=== PATIENT | male | born 1965 | race Caucasian/White ===

== ENCOUNTER 2019-08-16 07:37 | Outpatient (CLI) | payer OTHER, SELFPAY ==
--- NOTE | ~2019-08-16 | CT_ITS ---
EXAMINATION: CT abdomen pelvis w con EXAM DATE: 08/16/2019 08:16 INDICATION: Prostate cancer follow-up. TECHNIQUE: Spiral CT of the abdomen and pelvis was performed following intravenous injection of 100 m L Omnipaque 350. Axial, coronal and sagittal images were reviewed. The dose-length product (DLP) fo r this examination was 446.64 mGy-cm. The exposure was tailored according to patient size (auto mA e xposure control), and iterative reconstruction (ASIR) was used as additional dose reduction technique . Comparison is made to prior examination from 09/01/2017. FINDINGS: Pancreatic calcifications, chronic pancreatitis. Previously seen pancreatic cystic region n o longer identified. Liver, spleen, adrenal glands are unremarkable. Gallbladder is unremarkable. N o biliary obstruction. Portal and splenic veins are patent. Kidneys enhance symmetrically. There i s no hydronephrosis. The prostate is unremarkable. Small bilateral inguinal fat-containing hernias. The bladder is unremarkable. There is no retroperitoneal or pelvic lymphadenopathy. There is mod erate scattered arteriosclerotic disease. The appendix is normal. The stomach and small bowel are unremarkable. There is moderate amount of c olonic low density stool. There is mild sigmoid colonic diverticulosis. There is no adjacent inflamm atory change to suggest diverticulitis. No free intraperitoneal gas. The heart is normal in size. There are no pericardial or pleural effusions. The lung bases are unremarkable. There are no osteo blastic or osteolytic lesions identified. IMPRESSION: 1. No evidence of metastatic disease. 2. Chronic pancreatitis. 3. Mild colonic diverticulosis. 4. Moderate colonic stool. Reviewed, dictated and finalized at location B. LATORY ATTORNEY
--- NOTE | ~2019-08-16 | NM_ITS ---
EXAMINATION: NM bone scan whole body DATE: 08/16/2019 12:36 INDICATION: Prostate cancer TECHNIQUE: 25.9 mCi Tc-99m HDP was administered intravenously. Delayed whole-body scintigrams were o btained. COMPARISON: CT abdomen and pelvis dated 08/16/2019 FINDINGS/IMPRESSION: Physiologic distribution of bone and soft tissue activity. No evident metastatic disease. Reviewed, dictated and finalized at location A. RUCTION ASSISTANT PRINCIPAL
[2019-08-16 08:10] LABS: Blood Urea Nitrogen 17 mg/dL (8-26); Estimated Glomerular Filt Rate > 60
== END 2019-08-16 07:38 | disposition home or self-care (01) ==
LOC: ANHIMG 07:38
PROVIDERS: Visit Provider Internal Medicine Hematology & Oncology
DX: C61 Malignant neoplasm of prostate (principal); K86.1 Other chronic pancreatitis; K57.30 Diverticulosis of large intestine without perforation or abscess without bleeding
CPT/HCPCS: 74177; 78306; A9561; Q9967

== ENCOUNTER 2020-08-11 10:31 | Outpatient (CLI) | payer MEDICARE, SELFPAY ==
--- NOTE | ~2020-08-11 | US_ITS ---
EXAMINATION: US right upper quadrant DATE: 08/11/2020 11:25 INDICATION: Abnormal liver function tests. TECHNIQUE: Multiple grayscale and Doppler ultrasound images of the abdomen were obtained. COMPARISON: CT abdomen and pelvis 08/16/2019 FINDINGS: The pancreas is obscured by bowel. There is diffuse hepatic steatosis. There is normal flow in main portal vein. The gallbladder is normal in size and contains sludge. No gallstones or gallbla dder wall thickening. There was no sonographic Simeon sign. The common duct is normal and measures 6 mm. IMPRESSION: 1. Diffuse hepatic steatosis. 2. Gallbladder sludge. No evidence of acute cholecystitis. Reviewed, dictated and finalized at location A. K SKETCH ARTIST
== END 2020-08-11 10:32 | disposition home or self-care (01) ==
PROVIDERS: PCP Emergency Medicine; Visit Provider Emergency Medicine
DX: R74.8 Abnormal levels of other serum enzymes (principal); K82.8 Other specified diseases of gallbladder; K76.0 Fatty (change of) liver, not elsewhere classified
CPT/HCPCS: 76705

== ENCOUNTER 2021-01-03 10:16 | Outpatient (CLI) | payer MEDICARE, SELFPAY ==
--- NOTE | ~2021-01-03 | XR_ITS ---
EXAMINATION: XR foot LT min 3V DATE: 01/03/2021 10:35 INDICATION: Left foot pain and stiffness TECHNIQUE: Dorsoplantar, lateral, and 2 oblique views of the left foot were obtained. COMPARISON: None. FINDINGS: There is no fracture, dislocation, or subluxation. There is moderate osteoarthritis of the first metatarsophalangeal joint and mild osteoarthritis of multiple interphalangeal joints. The soft tissues are unremarkable. Dorsal and plantar calcaneal enthesophytes are noted. IMPRESSION: 1. Osteoarthritis. Reviewed, dictated and finalized at location B. IMPRESSION: 1. Osteoarthritis.
--- NOTE | ~2021-01-03 | XR_ITS ---
EXAMINATION: XR foot RT min 3V DATE: 01/03/2021 10:35 INDICATION: Right foot pain TECHNIQUE: Dorsoplantar, lateral, and 2 oblique views of the right foot were obtained. COMPARISON: None. FINDINGS: Bone alignment is normal. There is no fracture. There is moderate osteoarthritis at the fir st metatarsophalangeal joint. Mild osteoarthritis is present at multiple additional interphalangeal j oints. There is a plantar calcaneal enthesophyte. Soft tissues are unremarkable. IMPRESSION: 1. Osteoarthritis Reviewed, dictated and finalized at location B. IMPRESSION: 1. Osteoarthritis
== END 2021-01-03 10:17 | disposition home or self-care (01) ==
LOC: ANHIMG 10:19
PROVIDERS: PCP Emergency Medicine; Visit Provider Emergency Medicine
DX: M19.071 Primary osteoarthritis, right ankle and foot (principal); M19.072 Primary osteoarthritis, left ankle and foot
CPT/HCPCS: 73630

== ENCOUNTER 2021-07-07 11:05 | Outpatient (CLI) | payer MEDICARE, SELFPAY ==
[2021-07-07 11:49] LABS: Basophils Absolute Auto 0.1 K/mm3 (0.0-0.1); Basophils Percent Auto 0.8 % (0.2-1.2); Eosinophils Absolute Auto 0.2 K/mm3 (0-0.3); Hematocrit 39.5 % (42.0-52.0); Hemoglobin 13.4 g/dL (14.0-18.0); Immature Granulocyte Absolute 0.02 K/mm3 (0.00-0.031); Immature Granulocyte Percent A 0.3 % (0-0.5); Lymphocytes Absolute Auto 1.62 K/mm3 (0.9-3.2); Mean Corpuscular HGB Conc 33.9 g/dl (32-36); Mean Corpuscular Hemoglobin 33.2 pg (26-34); Mean Corpuscular Volume 97.8 fl (80-100); Mean Platelet Volume 11.1 fl (7.4-10.4); Monocytes Absolute Auto 0.8 K/mm3 (0.1-0.6); Monocytes Percent Auto 10.2 % (2.6-8.5); Neutrophils Absolute Auto 4.7 K/mm3 (1.3-6.7); Neutrophils Percent Auto 63.7 % (45.5-73.1); Platelet Count Result 137 k/mm3 (150-375); Red Blood Count 4.04 M/mm3 (4.6-6.20); Red Cell Distribution Width 14.9 % (11.5-14.5); White Blood Count 7.4 K/mm3 (4.5-10.0)
[2021-07-07 15:11] LABS: Cholesterol 100 mg/dL (0-200); HDL Direct 30 mg/dL; Triglycerides 73 mg/dL (<150)
[2021-07-07 15:22] LABS: LDL Cholesterol Direct 54 mg/dL
[2021-07-07 16:20] LABS: Free T4 Free Thyroxine 1.87 ng/mL (0.78-2.19)
[2021-07-07 16:32] LABS: Prostate Specific Antigen 0.2 ng/mL (< OR = 4.0)
[2021-07-07 17:16] LABS: Alanine Aminotransferase 51 U/L (4-50); Albumin Level 3.7 g/dL (3.5-5.1); Alkaline Phosphatase 210 U/L (38-126); Anion Gap 10 mmol/L (8-16); Aspartate Amino Transferase 134 U/L (17-59); Bilirubin,Total 2.7 mg/dL (0.2-1.3); Blood Urea Nitrogen 7 mg/dL (9-20); Calcium 8.8 mg/dL (8.4-10.2); Carbon Dioxide 27 mmol/L (22-30); Chloride 98 mmol/L (98-107); Estimated Glomerular Filt Rate > 60; Glucose 130 mg/dL (65-110); Potassium 2.8 mmol/L (3.4-5.0); Sodium 135 mmol/L (137-145)
[2021-07-07 18:36] LABS: Hemoglobin A1C 5.4 % (<5.7)
[2021-07-07 21:32] LABS: Vitamin D 25 Hydroxy < 12.8 ng/mL
== END 2021-07-07 11:06 | disposition home or self-care (01) ==
PROVIDERS: PCP Emergency Medicine; Visit Provider Internal Medicine Hematology & Oncology
DX: I10 Essential (primary) hypertension (principal); Z12.5 Encounter for screening for malignant neoplasm of prostate; C61 Malignant neoplasm of prostate; E55.9 Vitamin D deficiency, unspecified; E11.9 Type 2 diabetes mellitus without complications
CPT/HCPCS: 36415; 80053; 80061; 82306; 83036; 84153; 84439; 84443; 85025; 85055

== ENCOUNTER 2021-07-10 11:34 | Outpatient (CLI) | payer MEDICARE, SELFPAY ==
[2021-07-10 14:04] LABS: Add Urine Microscopic? YES; Appearance Urine Clear (Clear); Bacteria Urine Trace /hpf; Bilirubin Urine Negative (Negative); Blood Urine Negative (Negative); Calcium Oxalate Crystals Urine Present /hpf; Color Urine Yellow (Yellow); Glucose Urine UA Negative (Negative); Ketones Urine Negative (Negative); Leukocyte Esterase Ur Negative LEU/UL (NEGATIVE); Mucus Urine Rare /lpf; Nitrate Urine Negative (Negative); Protein Urine Negative (Negative); RBC Urine 0-2 /hpf (0-2); Specific Grav Ur 1.012 (1.001-1.035); Squamous Epithelial Cell Urine Rare /hpf (Few); WBC Urine 0-3 /hpf (0-3)
[2021-07-10 15:04] LABS: Creatinine Urine 85.5 mg/dL
[2021-07-10 15:08] LABS: MALB Creatinine Ratio 13.9 mg/g (0-30); Microalbumin Urine Random 11.9 mg/L (0-16.7)
== END 2021-07-10 11:35 | disposition home or self-care (01) ==
LOC: ANHLAB 11:35
PROVIDERS: PCP Emergency Medicine; Visit Provider Internal Medicine Hematology & Oncology
DX: Z12.5 Encounter for screening for malignant neoplasm of prostate (principal); I10 Essential (primary) hypertension; E55.9 Vitamin D deficiency, unspecified; E11.9 Type 2 diabetes mellitus without complications
CPT/HCPCS: 81001; 82043

== ENCOUNTER 2021-07-31 07:28 | Outpatient (CLI) | payer MEDICARE, SELFPAY ==
--- NOTE | ~2021-07-31 | US_ITS ---
EXAMINATION: US abdomen complete EXAM DATE: 07/31/2021 09:00 INDICATION: Elevated liver enzymes, decreased urination. TECHNIQUE: Multiple grayscale and Doppler images of the complete abdomen were obtained (by a technolo gist who performed the scan) and subsequently reviewed. Comparison is made to prior examination from 08/11/2020. FINDINGS: The abdominal aorta is normal in caliber. Visualized portion IVC is patent. The pancreatic head a nd body are normal in appearance. The pancreatic tail is not visualized. There is echogenic liver parenchyma, hepatic steatosis. There are no focal liver lesions identified. There is no evidence of intrahepatic biliary duct dilation. Portal venous flow was seen in the he patopedal, normal direction and has normal Doppler waveform. Common bile duct measures 5 mm, which is normal. The gallbladder wall is normal in thickness, with ex pected amount of distention. No sonographic evidence of pericholecystic fluid. There is no cholelit hiases. Technologist performing exam reports patient did not demonstrate sonographic Simeon's sign. Please note that this sign is less reliable in patients who have received pain medication. Right kidney: There is normal contour and echogenicity. It measures 12.0 x 5.4 x 6.1 centimeters. There are no focal renal lesions identified. There is no hydronephrosis. Left kidney: There is normal contour and echogenicity. It measures 11.7 x 5.2 x 5.5 centimeters. T here are no focal renal lesions identified. There is no hydronephrosis. The spleen measures 10.1 x 4.2 centimeters and is morphologically normal. IMPRESSION: Hepatic steatosis. Reviewed, dictated and finalized at location A. TRICIAN FRONT IMPRESSION: Hepatic steatosis.
== END 2021-07-31 07:29 | disposition home or self-care (01) ==
PROVIDERS: PCP Emergency Medicine; Visit Provider Emergency Medicine
DX: R74.01 Elevation of levels of liver transaminase levels (principal); K76.0 Fatty (change of) liver, not elsewhere classified; R34 Anuria and oliguria; R39.198 Other difficulties with micturition
CPT/HCPCS: 76700

== ENCOUNTER 2021-08-20 09:11 | Outpatient (CLI) | payer MEDICARE, SELFPAY | END 2021-08-20 09:12 | disposition home or self-care (01) | PROVIDERS: PCP Emergency Medicine; Visit Provider Internal Medicine Hematology & Oncology | DX: C61 Malignant neoplasm of prostate (principal) | CPT/HCPCS: 36415; 84153 ==

== ENCOUNTER 2021-11-20 09:05 | Inpatient (IN) | payer MEDICARE, SELFPAY ==
[2021-11-20] VITALS (37 sets, daily range): BP systolic 82–109; BP diastolic 58–75; PULSE 61–94; RESP 14–24; TEMP 36.2–37; O2SAT 98–100; BMI 28.0
--- NOTE | ~2021-11-20 | US_ITS ---
EXAMINATION: US venous doppler [facility] DATE: 11/21/2021 15:06 INDICATION: Bilateral lower limb swelling TECHNIQUE: Coyle scale images without and with compression and Doppler images of the bilateral lower e xtremity veins were obtained. COMPARISON: 04/19/2019 FINDINGS: The right common femoral vein, profunda femoral vein, femoral vein, popliteal vein, peroneal trunk, p osterior tibial veins, and greater saphenous vein are patent. The left common femoral vein, profunda femoral vein, femoral vein, popliteal vein, peroneal trunk, po sterior tibial veins, and greater saphenous vein are patent. IMPRESSION: 1. Patent bilateral lower extremity veins. No evidence of deep venous thrombosis. Reviewed, dictated and finalized at location A. IMPRESSION: 1. Patent bilateral lower extremity veins. No evidence of deep venous thrombosi s.
--- NOTE | ~2021-11-20 | US_ITS ---
EXAMINATION: US paracentesis abd w/image DATE: 11/20/2021 17:34 INDICATION: Ascites. TECHNIQUE: The procedure and its risks, benefits, and alternatives were discussed with the patient. P otential risks discussed included bleeding and infection. The skin was prepped and draped in sterile fashion. 1% lidocaine was used for local anesthesia. Under ultrasound guidance, a 5 Fr catheter with trochar was advanced into the ascites in the left lower quadrant. Fluid was aspirated. The catheter w as removed, and a dressing was applied. There were no immediate complications. FINDINGS: Ultrasound images demonstrate ascites and the catheter within the fluid. IMPRESSION: 1. Successful ultrasound-guided paracentesis yielding 5000 mL of clear, yellow fluid. Reviewed, dictated and finalized at location A.
--- NOTE | ~2021-11-20 | XR_ITS ---
XR chest 1V portable 11/20/2021 09:30 Indication: Shortness of breath Procedure: AP portable chest Comparison: 10/26/2017 Findings: Heart size normal. Left basilar atelectasis/scarring. No focal pneumonia, edema, pleural ef fusion or pneumothorax. Impression: 1: Left basilar atelectasis/scarring. Reviewed, dictated and finalized at location B. Impression: 1: Left basilar atelectasis/scarring.
--- NOTE | 2021-11-20 09:09 | ECG_ITS ---
Measurements Intervals [place] Rate: 88 P: 38 CA: 164 QRS: 40 QRSD: 118 T: 30 QT: 428 QTc: 520 Interpretive Statements SINUS RHYTHM INTRAVENTRICULAR CONDUCTION DELAY EARLY PRECORDIAL R/S TRANSITION ST-T WAVE ABNORMALITY IN ANTEROLAT/INF LEADS- CONSIDER ISCHEMIA BASELINE WANDER- I, III, AVL, AVF ABNORMAL ECG Electronically Signed On 11-20-2021 9:27:03 CDT by Taz Santana D.O.
[2021-11-20 09:38] LABS: Basophils Percent Auto 0.6 % (0.2-1.2); Eosinophils Absolute Auto 0.1 K/mm3 (0-0.3); Eosinophils Percent Auto 1.3 % (0-4.4); Immature Granulocyte Absolute 0.01 K/mm3 (0.00-0.031); Immature Granulocyte Percent A 0.2 % (0-0.5); Lymphocytes Absolute Auto 1.49 K/mm3 (0.9-3.2); Lymphocytes Percent Auto 27.5 % (18.3-44.2); Mean Corpuscular HGB Conc 30.6 g/dl (32-36); Mean Corpuscular Hemoglobin 23.2 pg (26-34); Mean Corpuscular Volume 75.9 fl (80-100); Mean Platelet Volume 9.9 fl (7.4-10.4); Monocytes Absolute Auto 0.7 K/mm3 (0.1-0.6); Monocytes Percent Auto 12.8 % (2.6-8.5); Neutrophils Absolute Auto 3.1 K/mm3 (1.3-6.7); Neutrophils Percent Auto 57.6 % (45.5-73.1); Platelet Count Result 192 k/mm3 (150-375); Red Blood Count 2.28 M/mm3 (4.6-6.20); Red Cell Distribution Width 21.1 % (11.5-14.5); White Blood Count 5.4 K/mm3 (4.5-10.0)
[2021-11-20 09:44] LABS: Ammonia < 9 umol/L (9-30); Hematocrit 17.3 % (42.0-52.0); Hemoglobin 5.3 g/dL (14.0-18.0)
[2021-11-20 09:45] LABS: Alanine Aminotransferase 20 U/L (6-50); Albumin Level 2.1 g/dL (3.5-5.1); Alkaline Phosphatase 144 U/L (38-126); Anion Gap 8 mmol/L (8-16); Aspartate Amino Transferase 48 U/L (17-59); Bilirubin,Total 1.6 mg/dL (0.2-1.3); Blood Urea Nitrogen 10 mg/dL (9-20); Calcium 7.3 mg/dL (8.4-10.2); Carbon Dioxide 23 mmol/L (22-30); Chloride 103 mmol/L (98-107); Estimated CRCL calculation 110 ml/min; Estimated Glomerular Filt Rate > 60; Glucose 138 mg/dL (65-110); Potassium 2.9 mmol/L (3.4-5.0); Sodium 134 mmol/L (137-145)
[2021-11-20 09:46] LABS: Alanine Aminotransferase 20 U/L (6-50); Albumin Level 2.2 g/dL (3.5-5.1); Alkaline Phosphatase 142 U/L (38-126); Aspartate Amino Transferase 55 U/L (17-59); Bilirubin,Total 1.6 mg/dL (0.2-1.3); INR 1.9; Prothrombin Time 21.3 Seconds (11.1-14.7)
[2021-11-20 09:47] LABS: Partial Thromboplastin Time 38.4 SECONDS (22.3-36.8)
[2021-11-20 09:49] LABS: D Dimer 3.46 ug/mL (<0.48)
--- NOTE | 2021-11-20 09:59 | ED.SOB ---
HPI - SOB/Dyspnea General Chief Complaint: Shortness of Breath/Dyspnea Stated Complaint: SOB with Leg Swelling/ABD Swelling Time Seen by Provider: 11/20/21 09:52 Source: patient and RN notes reviewed Limitations: no limitations History of Present Illness HPI Narrative: Patient is 56 years old white male came to the ED by ambulance from home complaining of weakness, shortness of breath and large abdomen over the last 4 weeks. History of liver cirrhosis secondary to alcoholism, prostatic cancer status post radiation therapy, hypertension, diabetes and hyperlipidemia. He denies any fever, chills, nausea, vomiting, vomiting blood or passing blood per rectum or stool discoloration. Last bowel movement was last night without any abnormality. Patient is DNR. He denies smoking or drinking over the last 3 years. Related Data Home Medications Medication Instructions Recorded Confirmed aspirin [Aspir-81] 81 mg PO DAILY 08/08/19 07/28/21 ergocalciferol (vitamin D2) 1,250 mcg PO WEEKLY 08/08/19 07/28/21 [Drisdol] glipizide 10 mg PO DAILY 08/08/19 07/28/21 metformin 1,000 mg PO BID 08/08/19 07/28/21 simvastatin 20 mg PO DAILY 08/08/19 07/28/21 spironolactone 25 mg PO DAILY 08/08/19 07/28/21 [id number] [Anti-Gas] 600 unit PO DAILY 09/20/19 07/28/21 bicalutamide 50 mg PO DAILY 01/09/20 07/28/21 amlodipine 5 mg PO DAILY 03/06/20 07/28/21 fexofenadine [Kari] 180 mg PO DAILY 03/18/21 07/28/21 Allergies Allergy/AdvReac Type Severity Reaction Status Date / Time Penicillins Allergy Unknown Other Verified 07/28/21 08:17 Review of Systems Review of Systems: All systems reviewed & are unremarkable except as noted in HPI and below PMFSH Past Medical History Medical History Ascites B12 deficiency Diabetes mellitus DVT (deep venous thrombosis) Hiatal hernia HTN (hypertension) Liver cirrhosis Pulmonary embolism Surgical History Surgical History H/O prostate biopsy Family History Family History Father Stomach cancer Mother Heart disease Hypertension Social History Social History Smoking packs per day: 1 Smoking cigarettes per day: 20.0 Years smoked: 10 Smoking pack-years: 10.00 Smoking status: Former smoker Tobacco type: cigarettes Alcohol intake: former Alcohol use details: quit in 2017 Gender identity (if verbalized by the patient): Male Spiritual care concerns: No Exam Narrative: General appearance: Well-developed, well-nourished Skin: Pale, 4+ edema lower extremity bilaterally Head: Normocephalic, nontraumatic Eyes: Clear conjunctiva ENT: Oropharynx normal, ears normal, nose normal Neck: Supple, nontender Chest and respiratory: Airway patent, no respiratory distress, no accessory muscle use Heart: Regular rate/rhythm Abdomen: Soft, large abdomen, ascites, rectal exam showed empty rectal pouch, guaiac negative Vascular: Normal peripheral pulses, normal capillary refill. Musculoskeletal: Normal range of motion, nontender back Neurologic: Alert and oriented ?3, TILE EDGER is normal as tested, no gross motor deficit Course Course Emergency Course: Esophageal varices is a possibility. Patient was started on Protonix and octreotide. GI consulted. Admit to hospitalist. Consultations Consultation #1: Dr. Washington Date: 11/20/21 Time: 10:35 Consultation #2: Jo/Dr. Hernandez Date: 11/20/21 Time: 10:35 Vital Signs Vital signs: Vital Signs Temperature 36.8 C 11/20/21 09:12 Pulse Rate 86 11/20/21 09:1
[2021-11-20 10:02] LABS: NT Pro B Type Natriuretic Pept 1060 pg/mL (5-100); Troponin I 0.043 ng/mL (0.000-0.034)
[2021-11-20] MEDS: LIDOCAINE HCL 2% GEL UROJET 10 ML PKG (10:04)
[2021-11-20 10:14] LABS: Appearance Urine Slightly Cloudy (Clear); Bilirubin Urine 1+ (Negative); Blood Urine 3+ (Negative); Glucose Urine UA Negative (Negative); Ketones Urine Negative (Negative); Leukocyte Esterase Ur Negative LEU/UL (Negative); Nitrate Urine Negative (Negative); Protein Urine Trace mg/dL (Negative); pH Urine 6.5 (5.0-9.0)
[2021-11-20 10:23] LABS: Add Urine Microscopic? YES; Color Urine Dark Yellow (Yellow)
[2021-11-20 10:29] LABS: Mucus Urine Few /lpf; RBC Urine >75 /hpf (0-2); Squamous Epithelial Cell Urine Rare /hpf (Few); WBC Urine 0-3 /hpf
[2021-11-20 11:00] LABS: SARS-CoV-2 RNA PCR Negative
[2021-11-20] MEDS: OCTREOTIDE ACETATE 50 MCG/ML VIAL IV PUSH (11:01)
[2021-11-20] MEDS: POTASSIUM CHLORIDE INJ 40 MEQ in SODIUM CHLORIDE 0.9% IV 500 ML 130 MEQ IVPB (11:02)
[2021-11-20 11:06] LABS: Hypochromasia 2+ (NORMAL); Lymphocytes Absolute Manual 0.97 K/mm3 (1.1-4.5); Monocytes Absolute Manual 0.27 K/mm3 (0.1-0.90); Monocytes Percent Manual 5 % (3-9); Neutrophils Percent Manual 77 % (46-73); Platelet Estimate Adequate (Adequate); Rouleaux 1+ (NORMAL); Total Cells Counted 100
[2021-11-20 11:07] LABS: Anisocytosis 1+ (NORMAL); Poikilocytosis 1+ (NORMAL); Schistocytes 1+ (NORMAL)
[2021-11-20] MEDS: PANTOPRAZOLE SODIUM IV 40 MG VIAL IV PUSH (11:07)
--- NOTE | 2021-11-20 12:49 | ADMGEN ---
This patient, Elie Chow, was admitted to IMU Room 211-01 at 1248. Patient/family oriented to hospital policies and general routines including ID bracelet, bed and alarms, visiting hours, pain management, procedures, bathroom and other care routines, personal items, smoking policy, room service/diet, and visiting hours. Information on how to activate the Rapid Response Team has been discussed. Patient/Family are encouraged to report perceived risks to care and to ask questions if they do not understand what they are told or what they should do.
[2021-11-20 13:13] LABS: Glucose Point of Care 130 mg/dl (65-105)
--- NOTE | 2021-11-20 14:46 | WPDGICN ---
Assessment and Plan Assessment and plan (1) Anemia: Qualifiers: Anemia type: unspecified type Qualified Code(s): D64.9 - Anemia, unspecified Code(s): D64.9 - Anemia, unspecified Status: Acute Assessment and Plan: given the fact that he had a normal hematocrits in July, I suspect that he has lost blood since then. He has not seen blood in his stools. He is at risk for esophageal varices given his Diagnosis of cirrhosis. I will schedule him for EGD to be done tomorrow. I explained him that he may have esophageal varices requiring banding. I discussed the procedure in possible risks such as bleeding or perforation, or pain if we need to band varices (2) History of cirrhosis of liver: Code(s): Z87.19 - Personal history of other diseases of the digestive system Status: Acute Assessment and Plan: he states that he was told that his cirrhosis is due to heavy alcohol use and he did quit drinking altogether a couple of years ago. He has had paracentesis once but states that he had not needed since then until he began having distension and edema in the legs a few weeks ago. (3) History of deep vein thrombosis: Code(s): Z86.718 - Personal history of other venous thrombosis and embolism Status: Acute Assessment and Plan: He took an oral anticoagulant for several months but now takes only a baby aspirin each day. (4) Coagulopathy: Code(s): D68.9 - Coagulation defect, unspecified Status: Acute Assessment and Plan: INR is 1.9, likely due to his chronic liver disease. Because there is no active bleeding, I do not think that we need to give him plasma and vitamin K is not likely to be effective (5) Prostate CA: Code(s): C61 - Malignant neoplasm of prostate Status: Acute Assessment and Plan: he sees Dr. Henderson regarding his prostate cancer. He states that he did have a scan of some sort and was told that there is no cancer in his bones. He has never been treated by him or any other floral clerk for anemia (6) Ascites: Code(s): R18.8 - Other ascites Status: Acute Assessment and Plan: I will schedule him for ultrasound-guided paracentesis. He states that the distention is the primary reason he came to the emergency room, And he is fairly uncomfortable with that. GI Consult Note Consult date/time: 11/20/21 14:46 HPI: Elie Chow is a 56 year old male The presented to the emergency room today because of shortness of breath and abdominal distension. He states that he has been told a few years ago that he had cirrhosis. He in fact quit drinking when he was given that diagnosis and that was almost 3 years ago. He states that he did have a paracentesis done a few years ago but has not had 1 since. He has gradually had increasing distention of his abdomen and edema in his legs. He was found to be markedly anemic in the emergency room. He denies seen blood in his stools, having black or tarry stools or having hematemesis. He denies dysphagia. He states that he has a fairly good appetite; he is not sure about his weight but suspects he is gaining weight due to the fluid retention. He had a colonoscopy and an EGD done less than 2 years ago in [place]. He does not take any blood thinner other than aspirin 81 mg per day. A couple of years ago when he had blood clots in his legs and lungs he was on a blood thinner for about 6 months. His INR is elevated at 1.9. He has never had hepatitis. He has not had follow-up of his liver disease with ultrasounds. Review of Systems Review of Systems: All systems reviewed & are unremarkable except as noted in HPI and below PMFSH Past Medical History Medical History Ascites B12 deficiency Diabetes mellitus DVT (deep venous thrombosis) Hiatal hernia HTN (hypertension) Liver cirrhosis Pulmonary embolism
[2021-11-20] MEDS: SODIUM CHLORIDE 0.9% IV 250 ML 30 ML IV CONT (16:05)
[2021-11-20] MEDS: TUBING, BLOOD PLUM PUMP TUBING 1 EACH XX ×3 (16:05→20:56)
[2021-11-20 17:00] LABS: Glucose Point of Care 230 mg/dl (65-105)
--- NOTE | 2021-11-20 17:19 | PM.IMHP ---
H&P: HPI History of Present Illness Date/Time: Patient requires inpatient monitoring with expected length of stay to exceed 2 midnights for management of care. 11/20/21 17:19 Chief Complaint: Shortness of breath Narrative: Mr. Chow is a 56-year-old gentleman who presented emergency room via ambulance with complaints of increasing shortness of breath, lower extremity edema, abdominal distension, and weakness for the last 4 weeks. Patient denies calling his primary care provider or his cryptologist for any of his complaints. Patient has a known history of liver cirrhosis secondary to alcoholism, and he states he quit drinking in 2018. Patient states he has had to have paracentesis in the past secondary to his abdominal distension. Patient states he also has a history of prostate cancer for which he is in remission at this time and did receive radiation and chemotherapy. Patient denies any abdominal pain but states that he does feel very bloated. Patient denies any chest discomfort, lightheadedness, dizziness, syncopal, or near syncopal episodes. Patient denies any hematemesis. Patient denies any hematochezia or melena. Patient's states that he has not noted any blood loss at any point. Upon evaluation emergency room patient was noted to be severely anemic with a hemoglobin of 5.0 and hematocrit of 17. Patient was then placed on an octreotide drip and is to receive Protonix pushes daily. Patient was also ordered to have 3 units of packed red blood cells and Gastroenterology was consulted. Patient adamantly denies any nausea vomiting. Patient was noted to have potassium of 2.9 and potassium supplementation via IV was started. As already stated patient has a known history of cirrhosis of the liver secondary to alcohol abuse. Patient states he quit drinking in 2018. Patient states he does have a history of prostate cancer and underwent radiation and chemotherapy and is in remission at this time. Patient states he does have a history of diabetes mellitus and he has been taking all of his medication at home. Patient also has a known history of hypertension and dyslipidemia. Review of Systems Review of Systems: A 12 point review of systems was completed patient all pertinent positive and negative per HPI the remainder are unremarkable. [facility] Past Medical History Medical History Ascites B12 deficiency Diabetes mellitus DVT (deep venous thrombosis) Hiatal hernia HTN (hypertension) Liver cirrhosis Pulmonary embolism Surgical History Surgical History H/O prostate biopsy Family History Family History Father Stomach cancer Mother Heart disease Hypertension Social History Social History Smoking packs per day: 0.5 Smoking cigarettes per day: 10.0 Years smoked: 12 Smoking pack-years: 6.00 Smoking status: Former smoker Tobacco type: cigarettes Alcohol intake: former Alcohol use details: quit in 2017 Gender identity (if verbalized by the patient): Male Spiritual care concerns: No Meds Home Medications and Allergies Home Medications Medication Instructions Recorded Confirmed Type aspirin [Aspir-81] 81 mg PO DAILY 08/08/19 11/20/21 History ergocalciferol (vitamin D2) 1,250 mcg PO WEEKLY 08/08/19 11/20/21 History [Drisdol] glipizide 10 mg PO DAILY 08/08/19 11/20/21 History metformin 1,000 mg PO BID 08/08/19 11/20/21 History simvastatin 20 mg PO DAILY 08/08/19 11/20/21 History spironolactone 25 mg PO DAILY 08/08/19 11/20/21 History bicalutamide 50 mg PO DAILY 01/09/20 11/20/21 History amlodipine 5 mg PO DAILY 03/06/20 11/20/21 History fexofenadine [Kari] 180 mg PO DAILY 03/18/21 11/20/21 History potassium chloride 20 meq PO DAILY 11/20/21 11/20/21 History Allergies Zain
[2021-11-20 18:59] LABS: Hematocrit 23.7 % (42.0-52.0); Hemoglobin 7.2 g/dL (14.0-18.0); Immature Reticulocyte Fraction 37.5 % (3.0-15.9); Reticulocyte Hemoglobin Conten 23.3 pg (28.2-35.7); Reticulocyte Percent 2.08 % (0.7-4.3); Reticulocytes Absolute 0.06 B/L (32.2-175.7)
[2021-11-20 19:06] LABS: Potassium 3.2 mmol/L (3.4-5.0)
[2021-11-20 19:26] LABS: Troponin I 0.035 ng/mL (0.000-0.034)
[2021-11-20 19:39] LABS: Lactate Dehydrogenase 468 U/L (313-618)
[2021-11-20 20:00] LABS: Iron 64 ug/dL (49-181)
[2021-11-20 20:10] LABS: Percent Iron Saturation 21 % (20-50)
[2021-11-20 20:46] LABS: Glucose Point of Care 231 mg/dl (65-105)
[2021-11-20] MEDS: KCL 20 MEQ/SW 100 ML 100 ML 50 MEQ IVPB (22:06)
[2021-11-20 22:45] LABS: Troponin I 0.035 ng/mL (0.000-0.034)
[2021-11-21] VITALS (23 sets, daily range): BP systolic 86–166; BP diastolic 57–71; PULSE 59–116; RESP 16–24; TEMP 36.1–36.6; O2SAT 96–100
--- NOTE | 2021-11-21 | ECHO_ITS ---
Patient Info Name: Elie Chow Age: 56 years : 1965 Gender: Male Ht: 72 in Wt: 206 lbs BSA: 2.20 m2 HR: 69 bpm BP: 86 / 62 mmHg Technical Quality: Fair Exam Date: 11/21/2021 8:26 AM Exam Location[facility] Patient Status: Inpatient Admit Date: 11/20/2021 Staff Ordering Physician: Fatemeh Zamudio APRN Lump Maker: Clint Simeon RDCS, RT Attending Provider: Jeet Meadows MD Referring Physician: Lizz MORALES; Exam Type: CA echo doppler color flow Study Info Indications R01.1 - Cardiac murmur, unspecified Complete two-dimensional, color flow and Doppler transthoracic echocardiogram is performed. Strain analysis performed. Summary 1. Complete two-dimensional, color flow and Doppler transthoracic echocardiogram is performed. 2. Left ventricular chamber dimension is normal. 3. Left ventricular systolic function is normal, estimated at 60-65%. 4. There is mildly increased left ventricular wall thickness. 5. The left ventricular diastolic function is grade III diastolic dysfunction. 6. E/e' is minimally elevated. 7. Global longitudinal strain is normal at -19.4%. 8. Left atrial chamber dimension is moderately enlarged. 9. Right atrial chamber dimension is mildly enlarged. 10. There is moderate aortic valve sclerosis. 11. There is moderate aortic valve stenosis with a peak velocity of 267 cm/s, mean gradient of 18 mmHg, and aortic valve area of 1.3 cm2. 12. The mitral valve has mildly calcified annulus. 13. There is mild mitral valve regurgitation. 14. There is trace tricuspid valve regurgitation. 15. Dilated inferior vena cava with >50% collapse upon inspiration consistent with elevated right atrial pressure, 10 mmHg. Left Ventricle E/e' is minimally elevated. Global longitudinal strain is normal at -19.4%. Left ventricular chamber dimension is normal. Left ventricular systolic function is normal, estimated at 60-65%. There is mildly increased left ventricular wall thickness. The left ventricular diastolic function is grade III diastolic dysfunction. Right Ventricle Right ventricular systolic function is normal and with normal TAPSE 2.5 cm. Right ventricular chamber dimension is normal. Left Atria Left atrial chamber dimension is moderately enlarged. Right Atria Right atrial chamber dimension is mildly enlarged. Aortic Valve The aortic valve is trileaflet. There is moderate aortic valve sclerosis. There is moderate aortic valve stenosis with a peak velocity of 267 cm/s, mean gradient of 18 mmHg, and aortic valve area of 1.3 cm2. There is no aortic valve regurgitation. Pulmonic Valve There is no pulmonic regurgitation. Mitral Valve The mitral valve has mildly calcified annulus. There is no mitral valve stenosis. There is mild mitral valve regurgitation. Tricuspid Valve There is trace tricuspid valve regurgitation. RVSP is not calculated due to an inadequate TR jet. Pericardium/Pleural There is no pericardial effusion. Inferior Vena Cava Dilated inferior vena cava with >50% collapse upon inspiration consistent with elevated right atrial pressure, 10 mmHg. Aorta The aortic root size at the sinus of Valsalva is normal. Left Ventricular Outflow Tract Name Value Normal LVOT 2D
[2021-11-21] MEDS: SODIUM CHLORIDE 0.9% IV 250 ML 30 ML (01:49)
[2021-11-21 02:02] LABS: Hematocrit 23.2 % (42.0-52.0); Hemoglobin 7.1 g/dL (14.0-18.0)
[2021-11-21 02:25] LABS: Troponin I 0.033 ng/mL (0.000-0.034)
[2021-11-21 07:10] LABS: Hematocrit 24.2 % (42.0-52.0); Hemoglobin 7.7 g/dL (14.0-18.0)
[2021-11-21 07:20] LABS: Alanine Aminotransferase 16 U/L (6-50); Albumin Level 1.9 g/dL (3.5-5.1); Alkaline Phosphatase 114 U/L (38-126); Anion Gap 3 mmol/L (8-16); Aspartate Amino Transferase 32 U/L (17-59); Bilirubin,Total 2.9 mg/dL (0.2-1.3); Blood Urea Nitrogen 8 mg/dL (9-20); Calcium 6.7 mg/dL (8.4-10.2); Carbon Dioxide 25 mmol/L (22-30); Chloride 104 mmol/L (98-107); Estimated CRCL calculation 127 ml/min; Estimated Glomerular Filt Rate > 60; Glucose 172 mg/dL (65-110); Potassium 3.3 mmol/L (3.4-5.0); Sodium 132 mmol/L (137-145)
[2021-11-21 07:55] LABS: Glucose Point of Care 174 mg/dl (65-105)
[2021-11-21] MEDS: PANTOPRAZOLE SODIUM IV 40 MG VIAL IV PUSH ×2 (09:13→20:34)
[2021-11-21 12:07] LABS: Glucose Point of Care 151 mg/dl (65-105)
[2021-11-21] MEDS: LACTATED RINGERS 1,000 ML 150 ML IV CONT (12:13)
--- NOTE | 2021-11-21 13:12 | WPDANESEPPF ---
Anes - Initial Pre Proc Eval Procedure: Operation Date: 11/21/21 13:00 Proposed Procedures p Esophagogastroduodenoscopy - Jeff Washington MD Date/Time: 11/21/21 13:12 Surgeon: Jeet Meadows MD Pre Op Diagnosis: Anemia, Liver Cirrhosis w/ascites, Hypokalemia Patient Data Age: 56 Gender: M Height: 1.83 m Weight: 94.1 kg Last Vital Signs Temp 98 F 11/21/21 12:11 Pulse 67 11/21/21 12:11 Resp 17 11/21/21 12:11 BP 93/57 L 11/21/21 12:11 Pulse Ox 100 11/21/21 12:11 Allergies Allergy/AdvReac Type Severity Reaction Status Date / Time Penicillins Allergy Unknown Other Verified 11/21/21 12:07 Home Medications Medication Instructions Recorded Confirmed Type aspirin [Aspir-81] 81 mg PO DAILY 08/08/19 11/20/21 History ergocalciferol (vitamin D2) 1,250 mcg PO WEEKLY 08/08/19 11/20/21 History [Drisdol] glipizide 10 mg PO DAILY 08/08/19 11/20/21 History metformin 1,000 mg PO BID 08/08/19 11/20/21 History simvastatin 20 mg PO DAILY 08/08/19 11/20/21 History spironolactone 25 mg PO DAILY 08/08/19 11/20/21 History bicalutamide 50 mg PO DAILY 01/09/20 11/20/21 History amlodipine 5 mg PO DAILY 03/06/20 11/20/21 History fexofenadine [Kari] 180 mg PO DAILY 03/18/21 11/20/21 History potassium chloride 20 meq PO DAILY 11/20/21 11/20/21 History Laboratory Tests 11/20/21 11/20/21 11/20/21 10:16 12:57 16:19 Hgb Hct Absolute Retic Percent Retic Immature Retic Fraction Retic Hgb Content Haptoglobin Sodium Potassium Chloride Carbon Dioxide Anion Gap BUN Creatinine Estim Creat Clear Calc Estimated GFR Glucose POC Capillary Glucose 130 mg/dl H mg/dl 230 mg/dl H mg/dl (65-105) (65-105) Calcium Magnesium Iron TIBC % Saturation Total Bilirubin Direct Bilirubin AST ALT Alkaline Phosphatase Lactate Dehydrogenase Troponin I Total Protein Albumin Blood Type O Positive Antibody Screen Negative Crossmatch See Detail 11/20/21 11/20/21 11/20/21 18:47 18:47 18:47 Hgb 7.2 g/dL L g/dL (14.0-18.0) Hct 23.7 % L % (42.0-52.0) Absolute Retic 0.06 B/L L B/L (32.2-175.7) Percent Retic 2.08 % % (0.7-4.3) Immature Retic Fraction 37.5 % H % (3.0-15.9) Retic Hgb Content 23.3 pg L pg (28.2-35.7) Haptoglobin Sodium Potassium Chloride Carbon Dioxide Anion Gap BUN Creatinine Estim Creat Clear Calc Estimated GFR Glucose POC Capillary Glucose Calcium Magnesium Iron 64 ug/dL ug/dL (49-181) TIBC 299 ug/dL ug/dL (265-497) % Saturation 21 % % (20-50) Total Bilirubin Direct Bilirubin AST ALT Alkaline Phosphatase Lactate Dehydrogenase Troponin I Total Protein Albumin Blood Type Antibody Screen Crossmatch 11/20/21 11/20/21 11/20/21 18:47 18:47 18:47 Hgb Hct Absolute Retic Percent Retic Immature Retic Fraction Retic Hgb Content Haptoglobin Pending Sodium Potassium 3.2 mmol/L L mmol/L (3.4-5.0) Chloride Carbon Dioxide Anion Gap BUN Creatinine Estim Creat Clear Calc Estimated GFR
[2021-11-21] MEDS: BENZOCAINE (*SP) 60 ML SPRAY CAN (HURRICAINE) 1 SPRAY MUCOUS MEM (13:19)
--- NOTE | 2021-11-21 14:11 | PM.IMPN ---
Progress Note: A&P Assessment and Plan (1) Anemia: Qualifiers: Anemia type: unspecified type Qualified Code(s): D64.9 - Anemia, unspecified Code(s): D64.9 - Anemia, unspecified Status: Acute Assessment and Plan: Hemoglobin 5.3 on admission. Most likely the etiology of his weakness. His symptoms may also be related to high output heart failure from the anemia which could explain the elevated BNP. He was transfused 3 units of packed blood cells. Hemoglobin has climbed the 7 range in his remains stable. No evidence of acute blood loss prior to admission per patient. Upper GI does show esophageal ulcers without bleeding and duodenitis which may be contributing to his blood loss. Continue to monitor H&H. Transfuse as necessary. (2) Elevated troponin: Code(s): R77.8 - Other specified abnormalities of plasma proteins Status: Acute Assessment and Plan: Troponin elevated to 0.043 on admission but has trend to normal. EKG showing anterolateral and inferior ST T wave changes. Echo showing EF of 60-65%, grade 3 diastolic dysfunction, and moderate aortic stenosis (DANIEL 1.3). Probably related to the severe anemia causing cardiac strain. Continue to monitor on telemetry. (3) Esophagitis, reflux: Code(s): K21.00 - Gastro-esophageal reflux disease with esophagitis, without bleeding Status: Acute Assessment and Plan: EGD was completed earlier today showing reflux esophagitis with esophageal ulcers, hiatal hernia and duodenitis. Some of these findings may have contributed to his anemia. No varices noted. Octreotide stopped. He did have a lipoma that was biopsied. Continue PPI. (4) Acute hypokalemia: Code(s): E87.6 - Hypokalemia Status: Acute Assessment and Plan: Potassium was 2.9 on admission. This has been replaced. He does take potassium supplements and spironolactone at home. Continue to follow and replace. Check cortisol and TSH. (5) Liver cirrhosis: Code(s): K74.60 - Unspecified cirrhosis of liver Status: Acute Assessment and Plan: Patient has ascites present admission with removal of 5 L. he tolerated this well. He is on spironolactone but not Lasix. He may not be on Lasix due to chronic hypokalemia and/or hypotension. Will continue spironolactone for now. Blood pressure more stable as afternoon. Continue to follow closely. Place parameters on the spironolactone. Add Vic mychal. (6) Ascites: Code(s): R18.8 - Other ascites Status: Acute Assessment and Plan: Patient has decompensated cirrhosis with ascites. As above. Appreciate GI input (7) Coagulopathy: Code(s): D68.9 - Coagulation defect, unspecified Status: Acute Assessment and Plan: INR 1.9. D-dimer elevated 3.5. Most likely related to the liver cirrhosis. Will check lower extremity venous Dopplers. (8) Hematuria: Code(s): R31.9 - Hematuria, unspecified Status: Acute Assessment and Plan: UA showing 3+ blood and greater than 75 red cells. Prior related to the Ajcinto catheter placement. He is an ex-smoker. UA will need to be repeated to ensure that this clears. (9) Diabetes mellitus: Code(s): E11.9 - Type 2 diabetes mellitus without complications Status: Acute Assessment and Plan: The patient's blood glucose was reviewed on 11/21 Glucose remains reasonably well controlled. Start AccuCheks covering with sliding scale. Hypoglycemia protocol will be available as needed. Continue to monitor (10) History of deep vein thrombosis: Code(s): Z86.718 - Personal history of other venous thrombosis and embolism Status: Acute Assessment and Plan: SCDs. Subjective Date/time seen: 11/21/21 14:11 Interval history: 56yo male with alcoholic cirrhosis, DM and HTN here for SOB, LE edema, abdominal distention and weakness and found to have profound
[2021-11-21] MEDS: POTASSIUM CHLORIDE 20 MEQ TABLET.ER PO (14:31)
[2021-11-21] MEDS: LORATADINE 10 MG TABLET PO (14:31)
[2021-11-21] MEDS: SIMVASTATIN 20 MG TABLET PO (14:31)
[2021-11-21] MEDS: BICALUTAMIDE (*CHEMO) 50 MG TABLET PO (14:31)
[2021-11-21] MEDS: ERGOCALCIFEROL 50,000 UNIT CAPSULE 50000 UNITS PO (14:32)
[2021-11-21 16:13] LABS: Glucose Point of Care 155 mg/dl (65-105)
[2021-11-21] MEDS: POTASSIUM CHLORIDE 20 MEQ TABLET PO (18:28)
[2021-11-21 20:10] LABS: Glucose Point of Care 228 mg/dl (65-105)
[2021-11-22] VITALS (9 sets, daily range): BP systolic 88–164; BP diastolic 49–69; PULSE 64–79; RESP 18–20; TEMP 36.4–37; O2SAT 95–98
[2021-11-22 05:03] LABS: Hemoglobin A1C 5.5 % (<5.7)
[2021-11-22 05:12] LABS: Alanine Aminotransferase 14 U/L (6-50); Albumin Level 1.8 g/dL (3.5-5.1); Alkaline Phosphatase 102 U/L (38-126); Anion Gap 0 mmol/L (8-16); Aspartate Amino Transferase 34 U/L (17-59); Bilirubin,Total 2.2 mg/dL (0.2-1.3); Blood Urea Nitrogen 6 mg/dL (9-20); Calcium 6.8 mg/dL (8.4-10.2); Carbon Dioxide 28 mmol/L (22-30); Chloride 103 mmol/L (98-107); Estimated CRCL calculation 110 ml/min; Estimated Glomerular Filt Rate > 60; Glucose 151 mg/dL (65-110); Phosphorus 1.6 mg/dL (2.5-4.5); Potassium 3.7 mmol/L (3.4-5.0); Sodium 131 mmol/L (137-145)
[2021-11-22 05:32] LABS: Basophils Percent Auto 0.4 % (0.2-1.2); Eosinophils Absolute Auto 0.1 K/mm3 (0-0.3); Eosinophils Percent Auto 2.5 % (0-4.4); Hematocrit 24.6 % (42.0-52.0); Hemoglobin 7.6 g/dL (14.0-18.0); Immature Granulocyte Absolute 0.02 K/mm3 (0.00-0.031); Immature Granulocyte Percent A 0.4 % (0-0.5); Lymphocytes Percent Auto 31.4 % (18.3-44.2); Mean Corpuscular HGB Conc 30.9 g/dl (32-36); Mean Corpuscular Hemoglobin 25.1 pg (26-34); Mean Corpuscular Volume 81.2 fl (80-100); Mean Platelet Volume 9.9 fl (7.4-10.4); Monocytes Absolute Auto 0.5 K/mm3 (0.1-0.6); Monocytes Percent Auto 10.5 % (2.6-8.5); Neutrophils Absolute Auto 2.6 K/mm3 (1.3-6.7); Neutrophils Percent Auto 54.8 % (45.5-73.1); Platelet Count Result 151 k/mm3 (150-375); Red Blood Count 3.03 M/mm3 (4.6-6.20); Red Cell Distribution Width 19.5 % (11.5-14.5); White Blood Count 4.8 K/mm3 (4.5-10.0)
[2021-11-22 05:36] LABS: Cortisol Random 6.45 ug/dL
[2021-11-22 06:57] LABS: Anisocytosis 1+ (NORMAL); Hypochromasia 1+ (NORMAL); Platelet Estimate Decreased (Adequate); Poikilocytosis 1+ (NORMAL); Target Cells 1+ (NORMAL)
[2021-11-22 06:58] LABS: Acanthocytes 1+ (NORMAL); Ovalocytes 1+ (NORMAL)
[2021-11-22] MEDS: LORATADINE 10 MG TABLET PO (08:09)
[2021-11-22] MEDS: BICALUTAMIDE (*CHEMO) 50 MG TABLET PO (08:09)
[2021-11-22] MEDS: SIMVASTATIN 20 MG TABLET PO (08:09)
[2021-11-22] MEDS: POTASSIUM CHLORIDE 20 MEQ TABLET.ER PO (08:09)
[2021-11-22] MEDS: PANTOPRAZOLE SODIUM IV 40 MG VIAL IV PUSH ×2 (08:09→20:36)
--- NOTE | 2021-11-22 08:41 | WPDGIPROGNO ---
Progress Note: A&P Assessment and Plan (1) Anemia: Qualifiers: Anemia type: unspecified type Qualified Code(s): D64.9 - Anemia, unspecified Code(s): D64.9 - Anemia, unspecified Status: Acute Assessment and Plan: given the fact that he had a normal hematocrits in July, I suspect that he has lost blood since then. He has not seen blood in his stools. He is at risk for esophageal varices given his Diagnosis of cirrhosis. I will schedule him for EGD to be done tomorrow. I explained him that he may have esophageal varices requiring banding. I discussed the procedure in possible risks such as bleeding or perforation, or pain if we need to band varices 11/22 will schedule for colonoscopy to be done Wednesday, as he has seen blood in his stools last night (2) History of cirrhosis of liver: Code(s): Z87.19 - Personal history of other diseases of the digestive system Status: Inactive Assessment and Plan: he states that he was told that his cirrhosis is due to heavy alcohol use and he did quit drinking altogether a couple of years ago. He has had paracentesis once but states that he had not needed since then until he began having distension and edema in the legs a few weeks ago. 11/22 5 L of fluid were removed yesterday with paracentesis. (3) History of deep vein thrombosis: Code(s): Z86.718 - Personal history of other venous thrombosis and embolism Status: Acute Assessment and Plan: He took an oral anticoagulant for several months but now takes only a baby aspirin each day. (4) Coagulopathy: Code(s): D68.9 - Coagulation defect, unspecified Status: Acute Assessment and Plan: INR is 1.9, likely due to his chronic liver disease. Because there is no active bleeding, I do not think that we need to give him plasma and vitamin K is not likely to be effective (5) Prostate CA: Code(s): C61 - Malignant neoplasm of prostate Status: Acute Assessment and Plan: he sees Dr. Henderson regarding his prostate cancer. He states that he did have a scan of some sort and was told that there is no cancer in his bones. He has never been treated by him or any other public health aide for anemia (6) Ascites: Code(s): R18.8 - Other ascites Status: Acute Assessment and Plan: I will schedule him for ultrasound-guided paracentesis. He states that the distention is the primary reason he came to the emergency room, And he is fairly uncomfortable with that. Subjective Date/time seen: 11/21 HPI: Elie Chow is a 56 year old male The presented to the emergency room today because of shortness of breath and abdominal distension. He states that he has been told a few years ago that he had cirrhosis. He in fact quit drinking when he was given that diagnosis and that was almost 3 years ago. He states that he did have a paracentesis done a few years ago but has not had 1 since. He has gradually had increasing distention of his abdomen and edema in his legs. He was found to be markedly anemic in the emergency room. He denies seen blood in his stools, having black or tarry stools or having hematemesis. He denies dysphagia. He states that he has a fairly good appetite; he is not sure about his weight but suspects he is gaining weight due to the fluid retention. He had a colonoscopy and an EGD done less than 2 years ago in [place]. He does not take any blood thinner other than aspirin 81 mg per day. A couple of years ago when he had blood clots in his legs and lungs he was on a blood thinner for about 6 months. His INR is elevated at 1.9. He has never had hepatitis. He has not had follow-up of his liver disease with ultrasounds. 11/22/21 08:41 he says that he would like to eat. He is having no symptoms now except that he states that he saw blood in his stools last night. He actually was incontinent also. He states he did not strain or have a d
[2021-11-22 09:15] LABS: Glucose Point of Care 139 mg/dl (65-105)
[2021-11-22 10:44] LABS: INR 1.9; Prothrombin Time 21.2 Seconds (11.1-14.7)
[2021-11-22 11:21] LABS: Alanine Aminotransferase 15 U/L (6-50); Albumin Level 1.8 g/dL (3.5-5.1); Alkaline Phosphatase 96 U/L (38-126); Anion Gap 1 mmol/L (8-16); Aspartate Amino Transferase 29 U/L (17-59); Bilirubin,Total 2.1 mg/dL (0.2-1.3); Blood Urea Nitrogen 6 mg/dL (9-20); Calcium 6.7 mg/dL (8.4-10.2); Carbon Dioxide 25 mmol/L (22-30); Chloride 102 mmol/L (98-107); Estimated CRCL calculation 110 ml/min; Estimated Glomerular Filt Rate > 60; Glucose 224 mg/dL (65-110); Potassium 3.6 mmol/L (3.4-5.0); Sodium 128 mmol/L (137-145)
[2021-11-22] MEDS: INSULIN ASPART (*BKC) 100 UNITS/ML SUB-Q (12:56)
[2021-11-22 16:37] LABS: Glucose Point of Care 145 mg/dl (65-105)
--- NOTE | 2021-11-22 16:47 | PM.IMPN ---
Progress Note: A&P Assessment and Plan (1) Anemia: Qualifiers: Anemia type: unspecified type Qualified Code(s): D64.9 - Anemia, unspecified Code(s): D64.9 - Anemia, unspecified Status: Acute Assessment and Plan: Hemoglobin 5.3 on admission. Most likely the etiology of his weakness. His symptoms may also be related to high output heart failure from the anemia which could explain the elevated BNP. He was transfused 3 units of packed blood cells. Hemoglobin has climbed the 7 range in his remains stable. No evidence of acute blood loss prior to admission per patient. Upper GI does show esophageal ulcers without bleeding and duodenitis which may be contributing to his blood loss. Continue to monitor H&H. Transfuse as necessary. 11/22/2021 interval history patient is a 56-year-old male remote history of alcohol abuse and developed liver cirrhosis presented emergency department with weakness most likely secondary to anemia and hemoglobin of 5.3 patient was given 3 units of pack RBC if hemoglobin today 7.6 and remains stable, patient was seen by GI and had a EGD showed esophageal varices and duodenitis GI suspect most likely cause of his anemia however patient denies any blood in the stool, patient also has a history of ascites had a paracentesis and 5 L was removed still complains abdominal pain but no shortness of breaths, patient had a bilateral lower extremity venous Doppler negative for DVT. will continue to monitor will have a PT OT evaluate the patient. (2) Elevated troponin: Code(s): R77.8 - Other specified abnormalities of plasma proteins Status: Acute Assessment and Plan: Troponin elevated to 0.043 on admission but has trend to normal. EKG showing anterolateral and inferior ST T wave changes. Echo showing EF of 60-65%, grade 3 diastolic dysfunction, and moderate aortic stenosis (DANIEL 1.3). Probably related to the severe anemia causing cardiac strain. Continue to monitor on telemetry. (3) Esophagitis, reflux: Code(s): K21.00 - Gastro-esophageal reflux disease with esophagitis, without bleeding Status: Acute Assessment and Plan: EGD was completed earlier today showing reflux esophagitis with esophageal ulcers, hiatal hernia and duodenitis. Some of these findings may have contributed to his anemia. No varices noted. Octreotide stopped. He did have a lipoma that was biopsied. Continue PPI. (4) Acute hypokalemia: Code(s): E87.6 - Hypokalemia Status: Acute Assessment and Plan: Potassium was 2.9 on admission. This has been replaced. He does take potassium supplements and spironolactone at home. Continue to follow and replace. Check cortisol and TSH. (5) Liver cirrhosis: Code(s): K74.60 - Unspecified cirrhosis of liver Status: Acute Assessment and Plan: Patient has ascites present admission with removal of 5 L. he tolerated this well. He is on spironolactone but not Lasix. He may not be on Lasix due to chronic hypokalemia and/or hypotension. Will continue spironolactone for now. Blood pressure more stable as afternoon. Continue to follow closely. Place parameters on the spironolactone. Add Vic gilese. (6) Ascites: Code(s): R18.8 - Other ascites Status: Acute Assessment and Plan: Patient has decompensated cirrhosis with ascites. As above. Appreciate GI input (7) Coagulopathy: Code(s): D68.9 - Coagulation defect, unspecified Status: Acute Assessment and Plan: INR 1.9. D-dimer elevated 3.5. Most likely related to the liver cirrhosis. Will check lower extremity venous Dopplers. (8) Hematuria: Code(s): R31.9 - Hematuria, unspecified Status: Acute Assessment and Plan: UA showing 3+ blood and greater than 75 red cells. Prior related to the Jacinto catheter placement. He is an ex-smoker. UA will need to be repeated to ensure that this c
[2021-11-22 17:48] LABS: Glucose Point of Care 205 mg/dl (65-105)
[2021-11-23 02:44] LABS: Glucose Point of Care 148 mg/dl (65-105)
[2021-11-23 06:00] VITALS: BP 92/65; PULSE 70; RESP 20; TEMP 37.3; O2SAT 96
[2021-11-23 06:21] LABS: Hemoglobin 7.3 g/dL (14.0-18.0); Mean Corpuscular HGB Conc 30.4 g/dl (32-36); Mean Corpuscular Hemoglobin 25.2 pg (26-34); Mean Corpuscular Volume 82.8 fl (80-100); Mean Platelet Volume 9.4 fl (7.4-10.4); Platelet Count Result 142 k/mm3 (150-375); Red Cell Distribution Width 20.4 % (11.5-14.5); White Blood Count 5.3 K/mm3 (4.5-10.0)
[2021-11-23 06:30] LABS: Magnesium 1.9 mg/dL (1.6-2.3)
[2021-11-23 07:58] LABS: Glucose Point of Care 134 mg/dl (65-105)
[2021-11-23 08:00] VITALS: PULSE 70; RESP 20; O2SAT 96
[2021-11-23 08:43] LABS: Alanine Aminotransferase 13 U/L (6-50); Albumin Level 1.6 g/dL (3.5-5.1); Alkaline Phosphatase 94 U/L (38-126); Anion Gap -1 mmol/L (8-16); Aspartate Amino Transferase 29 U/L (17-59); Bilirubin,Total 1.7 mg/dL (0.2-1.3); Blood Urea Nitrogen 5 mg/dL (9-20); Calcium 6.7 mg/dL (8.4-10.2); Carbon Dioxide 25 mmol/L (22-30); Chloride 107 mmol/L (98-107); Estimated CRCL calculation 110 ml/min; Estimated Glomerular Filt Rate > 60; Glucose 124 mg/dL (65-110); Potassium 3.8 mmol/L (3.4-5.0); Sodium 131 mmol/L (137-145)
[2021-11-23] MEDS: ACETAMINOPHEN 325 MG TABLET 650 MG PO (10:28)
[2021-11-23] MEDS: FUROSEMIDE 40 MG TABLET PO (10:29)
[2021-11-23] MEDS: SPIRONOLACTONE 50 MG TABLET 100 MG PO (10:29)
[2021-11-23] MEDS: BICALUTAMIDE (*CHEMO) 50 MG TABLET PO (10:29)
[2021-11-23] MEDS: POTASSIUM CHLORIDE 20 MEQ TABLET.ER PO (10:30)
[2021-11-23] MEDS: LORATADINE 10 MG TABLET PO (10:30)
[2021-11-23] MEDS: PANTOPRAZOLE SODIUM IV 40 MG VIAL IV PUSH ×2 (10:31→20:13)
[2021-11-23] MEDS: SIMVASTATIN 20 MG TABLET PO (10:31)
--- NOTE | 2021-11-23 11:24 | WPDGIPROGNO ---
Progress Note: A&P Assessment and Plan (1) Anemia: Qualifiers: Anemia type: unspecified type Qualified Code(s): D64.9 - Anemia, unspecified Code(s): D64.9 - Anemia, unspecified Status: Acute Assessment and Plan: given the fact that he had a normal hematocrits in July, I suspect that he has lost blood since then. He has not seen blood in his stools. He is at risk for esophageal varices given his Diagnosis of cirrhosis. I will schedule him for EGD to be done tomorrow. I explained him that he may have esophageal varices requiring banding. I discussed the procedure in possible risks such as bleeding or perforation, or pain if we need to band varices 11/22 will schedule for colonoscopy to be done Wednesday, as he has seen blood in his stools last night (2) History of cirrhosis of liver: Code(s): Z87.19 - Personal history of other diseases of the digestive system Status: Inactive Assessment and Plan: he states that he was told that his cirrhosis is due to heavy alcohol use and he did quit drinking altogether a couple of years ago. He has had paracentesis once but states that he had not needed since then until he began having distension and edema in the legs a few weeks ago. 11/22 5 L of fluid were removed yesterday with paracentesis. 11/23 his weight is 92 kg. We do not have a weight from admission to compare to (3) History of deep vein thrombosis: Code(s): Z86.718 - Personal history of other venous thrombosis and embolism Status: Acute Assessment and Plan: He took an oral anticoagulant for several months but now takes only a baby aspirin each day. (4) Coagulopathy: Code(s): D68.9 - Coagulation defect, unspecified Status: Acute Assessment and Plan: INR is 1.9, likely due to his chronic liver disease. Because there is no active bleeding, I do not think that we need to give him plasma and vitamin K is not likely to be effective (5) Prostate CA: Code(s): C61 - Malignant neoplasm of prostate Status: Acute Assessment and Plan: he sees Dr. Henderson regarding his prostate cancer. He states that he did have a scan of some sort and was told that there is no cancer in his bones. He has never been treated by him or any other insights strategist for anemia (6) Ascites: Code(s): R18.8 - Other ascites Status: Acute Assessment and Plan: I will schedule him for ultrasound-guided paracentesis. He states that the distention is the primary reason he came to the emergency room, And he is fairly uncomfortable with that. 11/23 his abdomen is soft and nontender today. Subjective Date/time seen: 11/23/21 11:24 he feels good today. He is tolerating his diet. There has been no melena or blood in his stools today but he did see blood yesterday. We are going to schedule for colonoscopy to be done tomorrow. I discussed with him results of his EGD, Erosive esophagitis and duodenitis. Although there was some fresh blood in the duodenum, I d Could not say for certain that this was sufficient to explain his anemia. Therefore he will have a colonoscopy tomorrow. Exam Const: General: alert Orientation/consciousness: patient oriented x3 Resp: Auscultation: clear to auscultation bilaterally Cardio: Rhythm: regular rhythm GI: Inspection: distended Auscultation: normal bowel sounds Skin: General skin exam: normal color, no ecchymosis and no jaundice Neuro: General: patient oriented x3 Extrem: General: edema ( 4+ in both legs) Objective Data Vital Signs Vital Signs: Vital Signs - 24 hr 11/22/21 12:00 11/22/21 16:00 11/22/21 22:00 Temperature 36.4 C L 36.9 C 37.0 C Pulse Rate 64 78 67 Respiratory Rate 18 18 18 Blood Pressure 89/49 L 164/64 H 103/69 Pulse Oximetry 95 97 96 11/23/21 06:00 Temperature 37.3 C Pulse Rate 70 Respiratory Rate 20 Blood Pressure 92/65 L Pulse Oximetry 96 Intake/Output Inta
[2021-11-23 12:02] LABS: Glucose Point of Care 198 mg/dl (65-105)
--- NOTE | 2021-11-23 12:57 | PM.IMPN ---
Progress Note: A&P Assessment and Plan (1) Anemia: Qualifiers: Anemia type: unspecified type Qualified Code(s): D64.9 - Anemia, unspecified Code(s): D64.9 - Anemia, unspecified Status: Acute Assessment and Plan: Hemoglobin 5.3 on admission. Most likely the etiology of his weakness. His symptoms may also be related to high output heart failure from the anemia which could explain the elevated BNP. He was transfused 3 units of packed blood cells. Hemoglobin has climbed the 7 range in his remains stable. No evidence of acute blood loss prior to admission per patient. Upper GI does show esophageal ulcers without bleeding and duodenitis which may be contributing to his blood loss. Continue to monitor H&H. Transfuse as necessary. 11/22/2021 interval history patient is a 56-year-old male remote history of alcohol abuse and developed liver cirrhosis presented emergency department with weakness most likely secondary to anemia and hemoglobin of 5.3 patient was given 3 units of pack RBC if hemoglobin today 7.6 and remains stable, patient was seen by GI and had a EGD showed esophageal varices and duodenitis GI suspect most likely cause of his anemia however patient denies any blood in the stool, patient also has a history of ascites had a paracentesis and 5 L was removed still complains abdominal pain but no shortness of breaths, patient had a bilateral lower extremity venous Doppler negative for DVT. will continue to monitor will have a PT OT evaluate the patient. 11/23/2021 interval history patient is a 56-year-old male remote history of alcohol abuse and developed liver cirrhosis presented emergency department with weakness most likely secondary to anemia and hemoglobin of 5.3 patient was given 3 units of pack RBC on 11/22 hemoglobin was 7.6 and today it is 7.3 and remains stable, patient was seen by GI and had a EGD showed esophageal varices and duodenitis GI suspect most likely cause of his anemia however patient denies any blood in the stool, patient also has a history of ascites on 11/20 had a paracentesis and 5 L was removed, still complains abdominal pain but no shortness of breaths, patient had a bilateral lower extremity venous Doppler negative for DVT. patient remains clinically stable there is no significant drop in his hemoglobin patient may be discharged tomorrow, will continue to monitor will have a PT OT evaluate the patient. (2) Elevated troponin: Code(s): R77.8 - Other specified abnormalities of plasma proteins Status: Acute Assessment and Plan: Troponin elevated to 0.043 on admission but has trend to normal. EKG showing anterolateral and inferior ST T wave changes. Echo showing EF of 60-65%, grade 3 diastolic dysfunction, and moderate aortic stenosis (DANIEL 1.3). Probably related to the severe anemia causing cardiac strain. Continue to monitor on telemetry. (3) Esophagitis, reflux: Code(s): K21.00 - Gastro-esophageal reflux disease with esophagitis, without bleeding Status: Acute Assessment and Plan: EGD was completed earlier today showing reflux esophagitis with esophageal ulcers, hiatal hernia and duodenitis. Some of these findings may have contributed to his anemia. No varices noted. Octreotide stopped. He did have a lipoma that was biopsied. Continue PPI. (4) Acute hypokalemia: Code(s): E87.6 - Hypokalemia Status: Acute Assessment and Plan: Potassium was 2.9 on admission. This has been replaced. He does take potassium supplements and spironolactone at home. Continue to follow and replace. Check cortisol and TSH. (5) Liver cirrhosis: Code(s): K74.60 - Unspecified cirrhosis of liver Status: Acute Assessment and Plan: Patient has ascites present admission with removal of 5 L. he tolerated this well. He is on spironolactone but not Lasix. He may not be on Lasix due to chronic hypokalemia and/or
[2021-11-23] MEDS: BISACODYL 5 MG TABLET EC 10 MG PO ×3 (13:35→20:13)
[2021-11-23 14:41] VITALS: BP 92/58; PULSE 68; RESP 18; TEMP 36.1; O2SAT 100
[2021-11-23 15:48] LABS: Glucose Point of Care 180 mg/dl (65-105)
[2021-11-23] MEDS: polyethylene glycoL 3350 238 GM BOTTLE PO (16:45)
[2021-11-23 22:00] VITALS: O2SAT 94
[2021-11-24] VITALS: BP 102/61; PULSE 69; RESP 14; TEMP 36.1; O2SAT 99
[2021-11-24] MEDS: MAGNESIUM CITRATE 300 ML BTL 180 ML PO (04:16)
--- NOTE | 2021-11-24 05:38 | PC.NURSE ---
pt given mag citrate bowel prep per MAR, pt reports continued brown stool but refusing further intervention at this time. Pt educated on requirements for bowel prep and continues to refuse
[2021-11-24 05:48] VITALS: BP 106/70; PULSE 82; RESP 16; TEMP 36.2; O2SAT 99
[2021-11-24 07:13] LABS: Hematocrit 29.2 % (42.0-52.0); Mean Corpuscular HGB Conc 30.8 g/dl (32-36); Mean Corpuscular Hemoglobin 25.5 pg (26-34); Mean Corpuscular Volume 82.7 fl (80-100); Mean Platelet Volume 9.6 fl (7.4-10.4); Platelet Count Result 153 k/mm3 (150-375); Red Blood Count 3.53 M/mm3 (4.6-6.20); Red Cell Distribution Width 21.5 % (11.5-14.5); White Blood Count 7.1 K/mm3 (4.5-10.0)
[2021-11-24 07:29] LABS: Alanine Aminotransferase 16 U/L (6-50); Alkaline Phosphatase 130 U/L (38-126); Anion Gap 5 mmol/L (8-16); Aspartate Amino Transferase 47 U/L (17-59); Bilirubin,Total 2.4 mg/dL (0.2-1.3); Blood Urea Nitrogen 5 mg/dL (9-20); Calcium 7.3 mg/dL (8.4-10.2); Carbon Dioxide 24 mmol/L (22-30); Chloride 104 mmol/L (98-107); Estimated CRCL calculation 110 ml/min; Estimated Glomerular Filt Rate > 60; Glucose 149 mg/dL (65-110); Magnesium 1.9 mg/dL (1.6-2.3); Potassium 3.9 mmol/L (3.4-5.0); Sodium 133 mmol/L (137-145)
[2021-11-24 07:44] LABS: Glucose Point of Care 141 mg/dl (65-105)
[2021-11-24] MEDS: BICALUTAMIDE (*CHEMO) 50 MG TABLET PO (08:31)
[2021-11-24] MEDS: PANTOPRAZOLE 40 MG TABLET PO (08:31)
[2021-11-24] MEDS: FUROSEMIDE 40 MG TABLET PO (08:31)
[2021-11-24] MEDS: LORATADINE 10 MG TABLET PO (08:31)
[2021-11-24] MEDS: SIMVASTATIN 20 MG TABLET PO (08:31)
[2021-11-24] MEDS: POTASSIUM CHLORIDE 20 MEQ TABLET.ER PO (08:31)
[2021-11-24] MEDS: SPIRONOLACTONE 50 MG TABLET 100 MG PO (08:31)
[2021-11-24 11:10] LABS: Glucose Point of Care 138 mg/dl (65-105)
--- NOTE | 2021-11-24 12:03 | PM.DS ---
DS: Admitting Diagnosis Discharge Date 11/24/21 Admitting Diagnosis Weakness DS: Discharge Diagnosis Discharge Diagnosis (1) Anemia: Qualifiers: Anemia type: unspecified type Qualified Code(s): D64.9 - Anemia, unspecified Code(s): D64.9 - Anemia, unspecified Status: Acute Assessment and Plan: Hemoglobin 5.3 on admission. Most likely the etiology of his weakness. His symptoms may also be related to high output heart failure from the anemia which could explain the elevated BNP. Iron studies were normal. He was transfused 3 units of packed blood cells. Hemoglobin has climbed the 7 range and drifted up to 9 on day of discharge. No evidence of acute blood loss prior to admission per patient. EGD does show esophageal ulcers without bleeding and duodenitis which may be contributing to his blood loss. Colonoscopy ordered but patient refused the bowel prep. Spoke with GI who felt this could be done as outpatient. Plan discharge with follow-up with GI. (2) Elevated troponin: Code(s): R77.8 - Other specified abnormalities of plasma proteins Status: Acute Assessment and Plan: Troponin elevated to 0.043 on admission but this trend to normal. EKG showing anterolateral and inferior ST T wave changes. Echo showing EF of 60-65%, grade 3 diastolic dysfunction, and moderate aortic stenosis (DANIEL 1.3). Probably Type II MN related to the oxygen supply/demand imbalance related to severe anemia. (3) Esophagitis, reflux: Code(s): K21.00 - Gastro-esophageal reflux disease with esophagitis, without bleeding Status: Acute Assessment and Plan: EGD was completed earlier today showing reflux esophagitis with esophageal ulcers, hiatal hernia and duodenitis. Some of these findings may have contributed to his anemia. No varices noted. Octreotide was stopped. He did have a lipoma that was biopsied. We continued protonix (4) Acute hypokalemia: Code(s): E87.6 - Hypokalemia Status: Acute Assessment and Plan: Potassium was 2.9 on admission. This was replaced. He does take potassium supplements and spironolactone at home. Cortisol level normal; TSH normal in July. Spironolactone dose advanced. Stop oral potassium replacement. Repeat BMP as outpatient (5) Liver cirrhosis: Code(s): K74.60 - Unspecified cirrhosis of liver Status: Acute Assessment and Plan: Patient has ascites present admission with removal of 5 L. He tolerated this well. He was on spironolactone but not Lasix. He may not be on Lasix due to chronic hypokalemia and/or hypotension. Echo showing EF 60-65% with grade 3 diastolic dysfunction, moderate and mild MR. We resumed spironolactone and advanced dose; Lasix also able to be added. Blood pressure remained stable. Unclear if his edema is related to heart or liver but more likely related to his liver failure given the ascites and other findings. (6) Ascites: Code(s): R18.8 - Other ascites Status: Acute Assessment and Plan: Patient has decompensated cirrhosis with ascites. As above. Appreciate GI input (7) Coagulopathy: Code(s): D68.9 - Coagulation defect, unspecified Status: Acute Assessment and Plan: INR 1.9. D-dimer elevated 3.5. Lower extremity venous Dopplers negative for DVT. Most likely related to the liver cirrhosis. (8) Hematuria: Code(s): R31.9 - Hematuria, unspecified Status: Acute Assessment and Plan: UA showing 3+ blood and greater than 75 red cells. Related to the Jacinto catheter placement. He is an ex-smoker. UA will need to be repeated as outpatient (9) Diabetes mellitus: Code(s): E11.9 - Type 2 diabetes mellitus without complications Status: Acute Assessment and Plan: A1c 5.5. The patient's blood glucose was monitored by [employer] covering with sliding scale. Hypoglycemia protocol was available as need
--- NOTE | 2021-11-24 12:32 | WPDGIPROGNO ---
Progress Note: A&P Assessment and Plan (1) Anemia: Qualifiers: Anemia type: unspecified type Qualified Code(s): D64.9 - Anemia, unspecified Code(s): D64.9 - Anemia, unspecified Status: Acute Assessment and Plan: given the fact that he had a normal hematocrits in July, I suspect that he has lost blood since then. He has not seen blood in his stools. He is at risk for esophageal varices given his Diagnosis of cirrhosis. I will schedule him for EGD to be done tomorrow. I explained him that he may have esophageal varices requiring banding. I discussed the procedure in possible risks such as bleeding or perforation, or pain if we need to band varices 11/22 will schedule for colonoscopy to be done Wednesday, as he has seen blood in his stools last night 11/24 He was unable to complete his prep for his colonoscopy. He has not seen any more blood in his stools. We will continue his treatment as an outpatient. Told that he needs close monitoring of his cirrhosis including diuretic therapy because of the large amount of ascites and anasarca with which he presented. I cautioned him to avoid putting any salt in his food and avoid all salty snacks (2) History of cirrhosis of liver: Code(s): Z87.19 - Personal history of other diseases of the digestive system Status: Inactive (3) History of deep vein thrombosis: Code(s): Z86.718 - Personal history of other venous thrombosis and embolism Status: Acute Assessment and Plan: He took an oral anticoagulant for several months but now takes only a baby aspirin each day. (4) Coagulopathy: Code(s): D68.9 - Coagulation defect, unspecified Status: Acute Assessment and Plan: INR is 1.9, likely due to his chronic liver disease. Because there is no active bleeding, I do not think that we need to give him plasma and vitamin K is not likely to be effective (5) Prostate CA: Code(s): C61 - Malignant neoplasm of prostate Status: Acute Assessment and Plan: he sees Dr. Henderson regarding his prostate cancer. He states that he did have a scan of some sort and was told that there is no cancer in his bones. He has never been treated by him or any other dancing master for anemia (6) Ascites: Code(s): R18.8 - Other ascites Status: Acute Assessment and Plan: I will schedule him for ultrasound-guided paracentesis. He states that the distention is the primary reason he came to the emergency room, And he is fairly uncomfortable with that. 11/23 his abdomen is soft and nontender today. 11/24 I told the see me in the office in 3 weeks for further management (7) Liver cirrhosis: Code(s): K74.60 - Unspecified cirrhosis of liver Status: Acute Assessment and Plan: he states that he was told that his cirrhosis is due to heavy alcohol use and he did quit drinking altogether a couple of years ago. He has had paracentesis once but states that he had not needed since then until he began having distension and edema in the legs a few weeks ago. 11/22 5 L of fluid were removed yesterday with paracentesis. 11/23 his weight is 92 kg. We do not have a weight from admission to compare to 11/24 in July his weight was 76 kg. On admission it was 93.8, increased to 95.5 and now is 93.2. Subjective Date/time seen: 11/24/21 12:32 The patient took some but not all of the prep 1st colonoscopy. We I was notified by the nurse that he was not going to take anymore and that his stools were not clear. There was no further bleeding seen however. I spoke with Dr. Bass, and we agree that he could be discharged. He will see me in the office in follow-up. I spoke to Elie at length about his liver disease. He had not been seen a senior electronics design engineer, stating that his primary care physician had been managing it . Explain to him that we have given him a higher dose of diuretics and therefore we need to keep
--- NOTE | 2021-11-24 13:08 | PCPTNOTE ---
Attempted to see patient for PT at this time, however unable to see patient. Patient just got done with OT and got his lunch.
[2021-11-26 07:09] LABS: Haptoglobin 128 mg/dL (43-212)
--- NOTE | 2021-11-26 11:35 | PC.NURSE ---
Duodenal mucosa with pathology or abnormalities. Bx results shown to Dr. Bass
== END 2021-11-24 14:20 | disposition home or self-care (01) | DRG 378 ==
LOC: ANHED 10:36 → ANHIMU 11:21 → ANH3MEDSUR 11-24 08:09 → ANHIMU 11-26 14:31
PROVIDERS: Family Medicine; Internal Medicine; Internal Medicine Gastroenterology; Nurse Practitioner Adult Health; Admitting Provider Chiropractor; Emergency Provider Emergency Medicine; PCP Emergency Medicine; Visit Provider Internal Medicine
PROC: 0DJ08ZZ Inspection of Upper Intestinal Tract, Via Natural or Artificial Opening Endoscopic (ICD-10-PCS; CPT 43235; principal; 2021-11-21 13:00)
DX: K29.81 Duodenitis with bleeding (principal); D68.9 Coagulation defect, unspecified; K22.10 Ulcer of esophagus without bleeding; K21.00 Gastro-esophageal reflux disease with esophagitis, without bleeding; K44.9 Diaphragmatic hernia without obstruction or gangrene; D17.5 Benign lipomatous neoplasm of intra-abdominal organs; R77.8 Other specified abnormalities of plasma proteins; R31.9 Hematuria, unspecified; D64.9 Anemia, unspecified; Z20.822 Contact with and (suspected) exposure to COVID-19; K70.31 Alcoholic cirrhosis of liver with ascites; F10.10 Alcohol abuse, uncomplicated; C61 Malignant neoplasm of prostate; I10 Essential (primary) hypertension; E78.5 Hyperlipidemia, unspecified; E11.9 Type 2 diabetes mellitus without complications; E53.8 Deficiency of other specified B group vitamins; Z66 Do not resuscitate; Z79.82 Long term (current) use of aspirin; Z79.84 Long term (current) use of oral hypoglycemic drugs; Z86.711 Personal history of pulmonary embolism; Z86.718 Personal history of other venous thrombosis and embolism; Z87.891 Personal history of nicotine dependence; Z88.0 Allergy status to penicillin
CPT/HCPCS: 36415; 36430; 49083; 71045; 80048; 80053; 80076; 81001; 82140; 82533; 82948; 83010; 83036; 83540; 83550; 83615; 83735; 83880; 84100; 84132; 84484; 85014; 85018; 85025; 85027; 85046; 85380; 85610; 85730; 86850; 86900; 86901; 86920; 87081; 88305; 93005; 93306; 93970; 97110; 97116; 97161; 97165; 97530; 97535; 99291; A9270; C9113; C9803; J1815; J2354; J2704; J3480; J7040; J7050; J7120; P9016; U0003; U0005

== ENCOUNTER 2021-12-09 11:47 | Emergency (ER) | payer MEDICARE, SELFPAY ==
[2021-12-09] VITALS (12 sets, daily range): BP systolic 108–127; BP diastolic 78–94; PULSE 88–100; RESP 14–27; TEMP 36.2–36.7; O2SAT 97–100
--- NOTE | ~2021-12-09 | XR_ITS ---
XR chest 2V DATE: 12/09/2021 12:44 INDICATION: Shortness of breath TECHNIQUE: AP and lateral views COMPARISON: 11/20/2021 portable AP chest 12/13/2017 CTA chest FINDINGS: Normal heart size. No hilar or mediastinal enlargement. No pulmonary infiltrate or consolidation, pleural effusion or pulmonary vascular congestion or pneumo thorax is detected. Small sliding hiatal hernia is suggested (and confirmed on 12/13/2017 CTA chest).. IMPRESSION: No active cardiopulmonary disease Small hiatal hernia Reviewed, dictated and finalized at location A.
--- NOTE | ~2021-12-09 | CT_ITS ---
EXAMINATION: CT abdomen pelvis wo con DATE: 12/09/2021 13:52 INDICATION: Elevation and lipase. Abdominal distention. TECHNIQUE: Computed tomography (CT) of the abdomen and pelvis was performed without intravenous contr ast. The dose-length product was 493.18 mGy-cm. Automated exposure control and iterative reconstructi on technique were employed. COMPARISON: CT dated 08/16/2019. FINDINGS: Lung bases unremarkable. Heart size normal. Moderate size hiatal hernia. No significant ple ural or pericardial effusion. There is omental and mesenteric stranding and nodularity throughout the abdomen, suspicious for perit mccoy carcinomatosis. There is cirrhosis of the liver. There is a large amount of ascites. The spleen, adrenal glands and kidneys are unremarkable. Gallbladder is present. There is mild thicke diandra of the gastric wall, although this could be be due to underdistention. There are pancreatic calc ifications, consistent with chronic pancreatitis. Colonic diverticulosis without evidence for acute d iverticulitis. Nonobstructive bowel pattern. No free air. IMPRESSION: 1. Interval development of omental and mesenteric stranding with nodularity, suspicious for peritonea l carcinomatosis. 2: Atrophic nodular appearing liver, consistent with cirrhosis with interval development of large alessandra unt of ascites. 3: Moderate sized hiatal hernia. Mild thickening of the gastric wall which may be due to underdistent ion, although further evaluation is recommended to exclude underlying neoplasm. 4: Chronic pancreatitis. Reviewed, dictated and finalized at location B. IMPRESSION: 1. Interval development of omental and mesenteric stranding with nodularity, townsend spicious for peritoneal carcinomatosis. 2: Atrophic nodular appearing liver, consistent with cirrhosis with interval de velopment of large amount of ascites. 3: Moderate sized hiatal hernia. Mild thickening of the gastric wall which may be due to underdistention, although further evaluation is recommended to exclud e underlying neoplasm. 4: Chronic pancreatitis.
--- NOTE | ~2021-12-09 | US_ITS ---
EXAMINATION: US paracentesis abd w/image DATE: 12/09/2021 13:51 INDICATION: Ascites. TECHNIQUE: The procedure and its risks, benefits, and alternatives were discussed with the patient. P otential risks discussed included bleeding and infection. The skin was prepped and draped in sterile fashion. 1% lidocaine was used for local anesthesia. Under ultrasound guidance, a 5 Fr catheter with trochar was advanced into the ascites in the left lower quadrant. Fluid was aspirated. The catheter w as removed, and a dressing was applied. There were no immediate complications. FINDINGS: Ultrasound images demonstrate ascites and the catheter within the fluid. IMPRESSION: 1. Successful ultrasound-guided paracentesis yielding 5000 mL of clear, yellow fluid. Reviewed, dictated and finalized at location A.
--- NOTE | 2021-12-09 11:58 | ED.ABDPAIN ---
HPI - Abdominal Pain General Chief Complaint: Abdominal Pain Stated Complaint: SOB, bloated up Time Seen by Provider: 12/09/21 11:57 History of Present Illness HPI narrative: The patient is a 56yo male with history of alcoholic cirrhosis, DM and HTN presenting to the emergency department for evaluation of abdominal distention. Patient denies any significant pain, but does report that he has significant abdominal bloating which is causing him to feel short of breath. Patient denies fever, cough. Denies hemoptysis. He reports bilateral lower extremity swelling as well. Patient states he has been compliant with his medication. He states that he came here today to have the fluid drained from his abdomen. He states that this was done once before with his previous admission. Per chart review, patient with recent admission and had 5 L removed via paracentesis. Patient did not have symptoms consistent with SBP with his admission. He has been established with GI, and hematology/oncology for his prostate cancer which is currently in remission. Without admission, patient was significantly anemic. He was transfused and ultimately discharged home. GI did perform an upper endoscopy. Related Data Home Medications Medication Instructions Recorded Confirmed aspirin 81 mg tablet,delayed 81 mg PO DAILY 08/08/19 11/20/21 release (Aspir-) ergocalciferol (vitamin D2) 1,250 1,250 mcg PO WEEKLY 08/08/19 11/20/21 mcg (50,000 unit) capsule (Drisdol) glipizide 10 mg tablet, extended 10 mg PO DAILY 08/08/19 11/20/21 release 24 hr metformin 500 mg tablet 1,000 mg PO BID 08/08/19 11/20/21 simvastatin 20 mg tablet 20 mg PO DAILY 08/08/19 11/20/21 bicalutamide 50 mg tablet 50 mg PO DAILY 01/09/20 11/20/21 fexofenadine 180 mg tablet 180 mg PO DAILY 03/18/21 11/20/21 Allergies Allergy/AdvReac Type Severity Reaction Status Date / Time Penicillins Allergy Unknown Other Verified 12/09/21 12:04 Review of Systems Review of Systems: CONSTITUTIONAL: Denies fever, chills, or sweats. EYES: Denies visual changes, redness, or discharge. ENT: Denies rhinorrhea, congestion, sore throat, or otalgia. CARDIOVASCULAR: Denies chest pain, palpitations, or edema. RESPIRATORY: Patient denies cough, reports shortness of breath GASTROINTESTINAL: Denies abdominal pain, reports abdominal bloating, denies nausea or vomiting GENITOURINARY: Denies dysuria or hematuria. SKIN: Denies rash or itching. MUSCULOSKELETAL: Denies back pain, joint pain, or myalgia. NEUROLOGIC: Denies headache, numbness, or weakness. FORMERLY [facility], [facility] Past Medical History Medical History Ascites B12 deficiency Diabetes mellitus DVT (deep venous thrombosis) Hiatal hernia HTN (hypertension) Liver cirrhosis Pulmonary embolism Surgical History Surgical History H/O prostate biopsy Family History Family History Father Stomach cancer Mother Heart disease Hypertension Social History Social History Smoking packs per day: 0.5 Smoking cigarettes per day: 10.0 Years smoked: 12 Smoking pack-years: 6.00 Smoking status: Former smoker Tobacco type: cigarettes Alcohol intake: former Alcohol use details: quit in 2017 Gender identity (if verbalized by the patient): Male Spiritual care concerns: No Exam Narrative: GENERAL: Awake, alert, conversant, chronically ill-appearing HEAD: Normocephalic, atraumatic. EYES: PERRLA and EOMI. ENT: Nares clear, no rhinorrhea or epistaxis. Mucous membranes dry NECK: Supple. CHEST: No respiratory distress, breathing even and non labored, no crackles bilaterally HEART: Borderline tachycardic rate, sinus rhythm ABDOMEN: Distended with positive fluid wave, nontender throughout, no rebound, rigidity or guarding EXTREMITIES: Nayeli
--- NOTE | 2021-12-09 12:12 | ECG_ITS ---
Measurements Intervals [place] Rate: 87 P: 53 WI: 197 QRS: 20 QRSD: 103 T: 37 QT: 426 QTc: 514 Interpretive Statements SINUS RHYTHM MODERATE ST DEPRESSION [0.05+ mV ST DEPRESSION]/CONSIDER POSTERIOR INFARCTION ABNORMAL ECG COMPARED TO ECG 11/20/2021 09:10:43 ST SEGMENT DEPRESSION IS IMPROVED Electronically Signed On 12-10-2021 7:17:07 CDT by Jeet Vera M.D.
[2021-12-09 12:24] LABS: Basophils Percent Auto 0.8 % (0.2-1.2); Eosinophils Absolute Auto 0.1 K/mm3 (0-0.3); Eosinophils Percent Auto 2.4 % (0-4.4); Hematocrit 26.6 % (42.0-52.0); Hemoglobin 8.5 g/dL (14.0-18.0); Immature Granulocyte Absolute 0.01 K/mm3 (0.00-0.031); Immature Granulocyte Percent A 0.2 % (0-0.5); Lymphocytes Absolute Auto 1.53 K/mm3 (0.9-3.2); Lymphocytes Percent Auto 30.2 % (18.3-44.2); Mean Corpuscular Hemoglobin 25.5 pg (26-34); Mean Corpuscular Volume 79.9 fl (80-100); Mean Platelet Volume 9.1 fl (7.4-10.4); Monocytes Absolute Auto 0.7 K/mm3 (0.1-0.6); Monocytes Percent Auto 13.2 % (2.6-8.5); Neutrophils Absolute Auto 2.7 K/mm3 (1.3-6.7); Neutrophils Percent Auto 53.2 % (45.5-73.1); Platelet Count Result 217 k/mm3 (150-375); Red Blood Count 3.33 M/mm3 (4.6-6.20); Red Cell Distribution Width 26.4 % (11.5-14.5); White Blood Count 5.1 K/mm3 (4.5-10.0)
[2021-12-09 12:34] LABS: Alanine Aminotransferase 19 U/L (6-50); Albumin Level 2.5 g/dL (3.5-5.1); Alkaline Phosphatase 188 U/L (38-126); Anion Gap 6 mmol/L (8-16); Aspartate Amino Transferase 35 U/L (17-59); Bilirubin,Total 1.5 mg/dL (0.2-1.3); Blood Urea Nitrogen 13 mg/dL (9-20); Calcium 7.5 mg/dL (8.4-10.2); Carbon Dioxide 25 mmol/L (22-30); Chloride 103 mmol/L (98-107); Estimated CRCL calculation 97 ml/min; Estimated Glomerular Filt Rate > 60; Glucose 124 mg/dL (65-110); Potassium 3.4 mmol/L (3.4-5.0); Sodium 134 mmol/L (137-145)
[2021-12-09 12:38] LABS: INR 1.5; Prothrombin Time 17.9 Seconds (11.1-14.7)
[2021-12-09 12:39] LABS: Partial Thromboplastin Time 38.3 SECONDS (22.3-36.8)
[2021-12-09 12:43] LABS: Lipase 563 U/L (23-300)
[2021-12-09 12:50] LABS: Anisocytosis 2+ (NORMAL); Hypochromasia 2+ (NORMAL); Ovalocytes 1+ (NORMAL); Platelet Estimate Adequate (Adequate)
[2021-12-09 12:51] LABS: Poikilocytosis 2+ (NORMAL)
--- NOTE | 2021-12-09 13:06 | PC.NURSE ---
patient confirmed he is not taking any blood thinners at this time
--- NOTE | 2021-12-09 14:04 | PC.NURSE ---
patient returned from US guided paracentesis. abdomen soft and non-tender. bandaid noted to L side abdomen. no active drainage noted to site. patient's weight obtained post paracentesis. he reports feeling better and less full . edema still noted bilateral extremities
[2021-12-09 14:57] LABS: Source Peritoneal Fluid Peritoneal Fluid
[2021-12-09 14:58] LABS: Appearance Peritoneal Fluid Clear (Clear); Color Peritoneal Fluid Yellow (Colorless); Lymphocytes Peritoneal Fluid 28 %; Macrophages Peritoneal Fluid 43 %; Monocytes Peritoneal Fluid 28 %; Neutrophils Peritoneal Fluid 1 % (0-25); Nucleated Cells Peritoneal Flu 104 /uL (0-500); RBC Peritoneal Fluid 69 /uL (0-100000)
[2021-12-09 15:32] LABS: Prostate Specific Antigen 0.2 ng/mL (< OR = 4.0)
[2021-12-11 16:28] LABS: Glucose Peritoneal Fluid 126 mg/dL; LDH Peritoneal Fluid 38 U/L (<63); Total Protein Peritoneal Fluid <3.0 g/dL
[2021-12-12 20:51] LABS: Amylase Peritoneal Fluid <10 U/L
[2021-12-13 16:36] LABS: Albumin Peritoneal Fluid 0.3 g/dL
== END 2021-12-09 16:01 | disposition home or self-care (01) ==
PROVIDERS: Emergency Provider Emergency Medicine; PCP Emergency Medicine
DX: K86.1 Other chronic pancreatitis (principal); K70.31 Alcoholic cirrhosis of liver with ascites; R85.7 Abnormal histological findings in specimens from digestive organs and abdominal cavity; I10 Essential (primary) hypertension; E11.9 Type 2 diabetes mellitus without complications; E53.8 Deficiency of other specified B group vitamins; Z85.46 Personal history of malignant neoplasm of prostate; Z86.718 Personal history of other venous thrombosis and embolism; Z86.711 Personal history of pulmonary embolism; Z87.891 Personal history of nicotine dependence; K44.9 Diaphragmatic hernia without obstruction or gangrene; Z79.84 Long term (current) use of oral hypoglycemic drugs; Z79.82 Long term (current) use of aspirin; R94.31 Abnormal electrocardiogram [ECG] [EKG]
CPT/HCPCS: 36415; 49083; 71046; 74176; 80053; 82042; 82150; 82945; 83615; 83690; 84153; 84157; 85025; 85610; 85730; 87205; 88104; 88108; 88305; 89051; 93005; 99284

== ENCOUNTER 2022-02-18 10:57 | Inpatient (IN) | payer MEDICARE, SELFPAY ==
[2022-02-18] VITALS (17 sets, daily range): BP systolic 109–131; BP diastolic 79–91; PULSE 93–105; RESP 14–23; TEMP 36.4–36.8; O2SAT 98–100; BMI 29.2
--- NOTE | ~2022-02-18 | US_ITS ---
EXAMINATION: US paracentesis abd w/image DATE: 02/19/2022 10:41 INDICATION: Ascites. TECHNIQUE: The procedure and its risks and benefits were discussed with the patient. Potential risks discussed included bleeding and infection. The skin was prepped and draped in sterile fashion. 1% lid ocaine was used for local anesthesia. Under ultrasound guidance, a 5 Fr catheter with trochar was adv anced into the ascites in the left lower quadrant. Fluid was aspirated into vacuum bottles. The cami ter was removed, and a dressing was applied. There were no immediate complications. FINDINGS: Ultrasound images demonstrate ascites and the catheter within the fluid. IMPRESSION: 1. Successful ultrasound-guided paracentesis yielding 5000 mL of clear yellowish fluid. Reviewed, dictated and finalized at location A. IMPRESSION: 1. Successful ultrasound-guided paracentesis yielding 5000 mL of clear yellowi sh fluid.
--- NOTE | ~2022-02-18 | US_ITS ---
EXAMINATION: US paracentesis abd w/image DATE: 02/20/2022 17:05 INDICATION: Ascites. TECHNIQUE: The procedure and its risks, benefits, and alternatives were discussed with the patient. P otential risks discussed included bleeding and infection. The skin was prepped and draped in sterile fashion. 1% lidocaine was used for local anesthesia. Under ultrasound guidance, a 5 Fr catheter with trochar was advanced into the ascites in the left lower quadrant. Fluid was aspirated. The catheter w as removed, and a dressing was applied. There were no immediate complications. FINDINGS: Ultrasound images demonstrate ascites and the catheter within the fluid. IMPRESSION: 1. Successful ultrasound-guided paracentesis yielding 5000 mL of clear, yellow fluid. Reviewed, dictated and finalized at location A.
--- NOTE | ~2022-02-18 | US_ITS ---
EXAMINATION: US venous doppler [facility] DATE: 02/19/2022 10:42 INDICATION: Bilateral lower limb swelling TECHNIQUE: Coyle scale images without and with compression and Doppler images of the bilateral lower e xtremity veins were obtained. COMPARISON: 11/21/2021 FINDINGS: Bilateral lower limb edema is noted. The right common femoral vein, profunda femoral vein, femoral vein, popliteal vein, peroneal trunk, p osterior tibial veins, and greater saphenous vein are patent. The left common femoral vein, profunda femoral vein, femoral vein, popliteal vein, peroneal trunk, po sterior tibial veins, and greater saphenous vein are patent. IMPRESSION: 1. Patent bilateral lower extremity veins. No evidence of deep venous thrombosis. Reviewed, dictated and finalized at location A. IMPRESSION: 1. Patent bilateral lower extremity veins. No evidence of deep venous thrombosi s.
--- NOTE | ~2022-02-18 | XR_ITS ---
XR chest 1V portable 02/18/2022 11:47 Indication: Dyspnea Procedure: AP portable chest Comparison: Comparison to multiple prior studies sequentially, with oldest reviewed study dated 01/2022. Findings: Heart size normal. There are bilateral interstitial infiltrates. No pleural effusion or pne umothorax. No acute osseous abnormality Impression: 1: Bilateral interstitial infiltrates, suspicious for pneumonia. Edema less favored. Reviewed, dictated and finalized at location B. Impression: 1: Bilateral interstitial infiltrates, suspicious for pneumonia. Edema less fav ored.
--- NOTE | 2022-02-18 11:04 | ED.SOB ---
HPI - SOB/Dyspnea General Chief Complaint: Weakness Stated Complaint: ? Time Seen by Provider: 02/18/22 11:04 History of Present Illness HPI Narrative: 57yoM with history of liver failure, heart failure presents with several weeks of increasing dyspnea, abdominal distention, lower extremity edema. Has been taking his water pills but states that they do not seem to be working. Denies any chest pain. States that the last time he had his abdomen drained was back in December Related Data Home Medications Medication Instructions Recorded Confirmed aspirin 81 mg tablet,delayed 81 mg PO DAILY 08/08/19 11/20/21 release (Aspir-) ergocalciferol (vitamin D2) 1,250 1,250 mcg PO WEEKLY 08/08/19 11/20/21 mcg (50,000 unit) capsule (Drisdol) glipizide 10 mg tablet, extended 10 mg PO DAILY 08/08/19 11/20/21 release 24 hr metformin 500 mg tablet 1,000 mg PO BID 08/08/19 11/20/21 simvastatin 20 mg tablet 20 mg PO DAILY 08/08/19 11/20/21 bicalutamide 50 mg tablet 50 mg PO DAILY 01/09/20 11/20/21 fexofenadine 180 mg tablet 180 mg PO DAILY 03/18/21 11/20/21 Allergies Allergy/AdvReac Type Severity Reaction Status Date / Time Penicillins Allergy Unknown Other Verified 12/09/21 12:04 Review of Systems Review of Systems: CONST: No fever. HEENT: No sore throat C/V: No chest pain RESP: Dyspnea GI: Abdominal distension : No dysuria. M/S: BLEE SKIN: Redness BLEE NEURO: [No headache or focal numbness or weakness] PSYCH: [No depression] [facility] Past Medical History Medical History Ascites B12 deficiency Diabetes mellitus DVT (deep venous thrombosis) Hiatal hernia HTN (hypertension) Liver cirrhosis Pulmonary embolism Surgical History Surgical History H/O prostate biopsy Family History Family History Father Stomach cancer Mother Heart disease Hypertension Social History Social History Smoking packs per day: 0.5 Smoking cigarettes per day: 10.0 Years smoked: 12 Smoking pack-years: 6.00 Smoking status: Former smoker Tobacco type: cigarettes Alcohol intake: former Alcohol use details: quit in 2017 Gender identity (if verbalized by the patient): Male Spiritual care concerns: No Exam Narrative: EXAMINATION OF ORGAN SYSTEMS/BODY AREAS: Constitutional: Vital signs per nursing GENERAL:[No acute distress, non-toxic appearing.] HEAD: Normal with no signs of head trauma. EYES: EOMI, conjunctiva normal ENT: Hearing grossly intact LUNGS: Nonlabored breathing. HEART: [Regular rate and rhythm] ABD: Distended but soft, [nontender to palpation], fluid wave EXT: Bilateral pitting edema SKIN: Bilateral redness lower extremities nontender NEURO: [Alert and oriented x 3. No gross focal sensory or strength deficits.] PSYCH: Normal affect Course Vital Signs Vital signs: Vital Signs Temperature 97.6 F 02/18/22 11:01 Pulse Rate 93 02/18/22 11:01 Respiratory Rate 14 02/18/22 11:01 Blood Pressure 115/90 02/18/22 11:01 Pulse Oximetry 100 02/18/22 11:01 Oxygen Delivery Room Air 02/18/22 11:01 Temperature 97.6 F 02/18/22 11:01 Pulse Rate 96 02/18/22 12:40 Respiratory Rate 19 02/18/22 12:40 Blood Pressure 129/84 02/18/22 12:40 Pulse Oximetry 100 02/18/22 12:40 Oxygen Delivery Room Air 02/18/22 11:01 MDM - SOB/Dyspnea MDM Narrative Medical decision making narrative: 57-year-old male presents with signs of volume overload, vital signs within acceptable limits, on exam patient is in no distress with soft nontender abdomen and lower extremities, and concern for possible overload, labs are obtained, he is given a dose of Lasix. Labs notable for low potassium of 2.8 for which she will be repleted, I do feel he would benefit from admission at this time for diuresis and
--- NOTE | 2022-02-18 11:13 | ECG_ITS ---
Measurements Intervals [place] Rate: 96 P: 232 MO: 265 QRS: 51 QRSD: 105 T: 48 QT: 384 QTc: 488 Interpretive Statements SINUS RHYTHM WITH FIRST DEGREE AV BLOCK LOW QRS VOLTAGE IN EXTREMITY LEADS [QRS DEFLECTION < 0.5 mV IN LIMB LEADS] MODERATE ST DEPRESSION [0.05+ mV ST DEPRESSION] ABNORMAL ECG COMPARED TO ECG 12/09/2021 12:26:58 FIRST DEGREE AV BLOCK NOW PRESENT Electronically Signed On 02-18-2022 12:35:45 CDT by Luis Turner M.D.
[2022-02-18 11:49] LABS: Basophils Percent Auto 0.5 % (0.2-1.2); Eosinophils Percent Auto 0.5 % (0-4.4); Hematocrit 25.6 % (42.0-52.0); Hemoglobin 8.2 g/dL (14.0-18.0); Immature Granulocyte Absolute 0.02 K/mm3 (0.00-0.031); Immature Granulocyte Percent A 0.5 % (0-0.5); Lymphocytes Absolute Auto 1.18 K/mm3 (0.9-3.2); Lymphocytes Percent Auto 28.4 % (18.3-44.2); Mean Corpuscular Hemoglobin 26.3 pg (26-34); Mean Corpuscular Volume 82.1 fl (80-100); Monocytes Absolute Auto 0.6 K/mm3 (0.1-0.6); Monocytes Percent Auto 13.7 % (2.6-8.5); Neutrophils Absolute Auto 2.4 K/mm3 (1.3-6.7); Neutrophils Percent Auto 56.4 % (45.5-73.1); Platelet Count Result 205 k/mm3 (150-375); Red Blood Count 3.12 M/mm3 (4.6-6.20); Red Cell Distribution Width 21.8 % (11.5-14.5); White Blood Count 4.2 K/mm3 (4.5-10.0)
[2022-02-18 11:51] LABS: Appearance Urine Slightly Cloudy (Clear); Bilirubin Urine 1+ (Negative); Blood Urine Negative (Negative); Glucose Urine UA Negative (Negative); Ketones Urine Trace mg/dL (Negative); Leukocyte Esterase Ur Negative LEU/UL (Negative); Nitrate Urine Negative (Negative); Protein Urine Negative (Negative); Specific Grav Ur 1.025 (1.001-1.035)
[2022-02-18 11:55] LABS: Add Urine Microscopic? YES; Color Urine Dark Yellow (Yellow)
[2022-02-18 11:59] LABS: Alanine Aminotransferase 18 U/L (6-50); Alkaline Phosphatase 127 U/L (38-126); Anion Gap 7 mmol/L (8-16); Aspartate Amino Transferase 33 U/L (17-59); Bilirubin,Total 0.9 mg/dL (0.2-1.3); Blood Urea Nitrogen 13 mg/dL (9-20); Calcium 7.5 mg/dL (8.4-10.2); Carbon Dioxide 25 mmol/L (22-30); Chloride 104 mmol/L (98-107); Estimated Glomerular Filt Rate > 60; Glucose 119 mg/dL (65-110); Magnesium 1.8 mg/dL (1.6-2.3); Potassium 2.8 mmol/L (3.4-5.0); Sodium 136 mmol/L (137-145)
[2022-02-18 12:00] LABS: Bacteria Urine Trace /hpf; Calcium Oxalate Crystals Urine Present /hpf; Mucus Urine Few /lpf; RBC Urine 21-50 /hpf (0-2); Squamous Epithelial Cell Urine Occasional /hpf (Few); WBC Urine 0-3 /hpf
[2022-02-18 12:08] LABS: NT Pro B Type Natriuretic Pept 1060 pg/mL (5-100); Troponin I < 0.012 ng/mL (0.000-0.034)
[2022-02-18] MEDS: POTASSIUM CHLORIDE INJ 40 MEQ in SODIUM CHLORIDE 0.9% IV 500 ML 130 MEQ IVPB (12:28)
[2022-02-18] MEDS: POTASSIUM CHLORIDE 20 MEQ PACKET (FOR LIQUID) 40 MEQ PO (12:39)
[2022-02-18] MEDS: FUROSEMIDE INJ 40 MG/4 ML VIAL IV PUSH (12:39)
--- NOTE | 2022-02-18 15:30 | PM.IMHP ---
H&P: HPI History of Present Illness Date/Time: 02/18/22 15:30 Chief Complaint: Increased swelling, weakness. Narrative: This is a 57-year-old male with cirrhosis of the liver, hypertension, diabetes, anemia, gastroesophageal reflux disease, esophageal ulcers, prostate cancer status post radiation, and history of DVT and pulmonary embolism who presented to the emergency department via EMS from home for evaluation of increasing swelling and weakness. He has not been feeling well for quite some time however over the past month or so he has developed ever increasing lower extremity edema which is now up to his flanks. He has also had increasing abdominal distension which is to the point that he is short of breath and he has difficulties bending over. He states compliance with his diuretics and reports that his last paracentesis was on 12/09/2021 at which time he they were able to get off 5 L. He was afebrile on arrival to the emergency department today and is vital signs have been stable. Once again he was found to have hypokalemia and he is being admitted for potassium replacement and therapeutic paracentesis. Chest x-ray today showed bilateral interstitial infiltrates suspicious for pneumonia (edema less favored) and with further questioning he has had a dry cough and some chills. His appetite has not been very good either. He denies fever, headache, sinus congestion, sore throat, sick contacts, chest pain, pleuritic pain, palpitations, vomiting, and diarrhea. Review of Systems Review of Systems: Twelve systems were reviewed. No syncope or presyncope. No epigastric or abdominal pain. No melena or hematochezia. Dysuria. Except as documented, all other systems were reviewed and are negative. FORMERLY [facility] Past Medical History Medical History (Updated 02/18/22 @ 23:08 by Omayra Mcmahon PA-C) B12 deficiency Deep venous thrombosis Diabetes mellitus Hiatal hernia Hypertension Liver cirrhosis Prostate cancer Status post radiation. Pulmonary embolism Surgical History Surgical History (Updated 02/18/22 @ 22:59 by Omayra Mcmahon PA-C) History of prostate biopsy Family History Family History Father Stomach cancer Heart attack Mother Heart disease Hypertension Social History Social History (Updated 02/18/22 @ 23:00 by Omayra G. Gerling, PA-C) Social History: Surrogate medical decision maker: Ora Chow, sibling. Code status: Full code. Smoking packs per day: 0.5 Smoking cigarettes per day: 10.0 Years smoked: 12 Smoking pack-years: 6.00 Smoking status: Former smoker Tobacco type: cigarettes Alcohol intake: former Alcohol use details: quit in 2017 Substance use: never Living arrangements: alone Occupation/Education: retired Spiritual care concerns: No Meds Home Medications and Allergies Home Medications Medication Instructions Recorded Confirmed Type aspirin 81 mg tablet,delayed 81 mg PO DAILY 08/08/19 02/18/22 History release (Aspir-) ergocalciferol (vitamin D2) 1,250 1,250 mcg PO WEEKLY 08/08/19 02/18/22 History mcg (50,000 unit) capsule (Drisdol) metformin 500 mg tablet 1,000 mg PO BID 08/08/19 02/18/22 History simvastatin 20 mg tablet 20 mg PO HS 08/08/19 02/18/22 History bicalutamide 50 mg tablet 50 mg PO DAILY 01/09/20 02/18/22 History fexofenadine 180 mg tablet 180 mg PO DAILY 03/18/21 02/18/22 History furosemide 40 mg tablet 40 mg PO DAILY #30 tabs 11/24/21 02/18/22 Rx pantoprazole 40 mg tablet,delayed 40 mg PO Q12HR #60 tabs 11/24/21 02/18/22 Rx release spironolactone 50 mg tablet 100 mg PO DAILY #60 tabs 11/24/21 02/18/22 Rx (Aldactone) Allergies Allergy/AdvReac Type Severity Reaction Status Date / Time Penicillins Allergy Unknown Hives Verified 02/18/22 18:08 Vital Signs Vital Signs - 24 hr 02/18/22 11:01 02/18/22 11:12 02/18/22 12:40 Temperature 97.6 F Pulse Rate 93 95 96 Respir
[2022-02-18 15:53] LABS: SARS-CoV-2 RNA PCR Negative
--- NOTE | 2022-02-18 17:56 | ADMGEN ---
This patient, Elie Chow, was admitted to [facility] Surg Room 322-. Patient/family oriented to hospital policies and general routines including ID bracelet, bed and alarms, visiting hours, pain management, procedures, bathroom and other care routines, personal items, smoking policy, room service/diet, and visiting hours. Information on how to activate the Rapid Response Team has been discussed. Patient/Family are encouraged to report perceived risks to care and to ask questions if they do not understand what they are told or what they should do.
[2022-02-18] MEDS: HYOSCYAMINE SULFATE 0.125 MG TABLET PO (21:13)
[2022-02-18] MEDS: ACETAMINOPHEN 325 MG TABLET 650 MG PO (21:46)
[2022-02-18 22:36] LABS: Anion Gap 5 mmol/L (8-16); Blood Urea Nitrogen 14 mg/dL (9-20); Calcium 7.5 mg/dL (8.4-10.2); Carbon Dioxide 25 mmol/L (22-30); Chloride 103 mmol/L (98-107); Estimated CRCL calculation 86 ml/min; Estimated Glomerular Filt Rate > 60; Glucose 137 mg/dL (65-110); Magnesium 1.7 mg/dL (1.6-2.3); Potassium 3.3 mmol/L (3.4-5.0); Sodium 133 mmol/L (137-145)
[2022-02-18 22:39] LABS: INR 1.5; Prothrombin Time 17.5 Seconds (11.1-14.7)
[2022-02-18 22:40] LABS: Partial Thromboplastin Time 37.5 SECONDS (22.3-36.8)
[2022-02-18 23:33] LABS: Hemoglobin A1C 5.5 % (<5.7)
[2022-02-18] MEDS: POTASSIUM CHLORIDE 20 MEQ TABLET 40 MEQ PO (23:51)
[2022-02-18] MEDS: FUROSEMIDE INJ 40 MG/4 ML VIAL 20 MG IV PUSH (23:52)
[2022-02-19] VITALS (8 sets, daily range): BP systolic 92–113; BP diastolic 42–71; PULSE 87–99; RESP 20–22; TEMP 36.4–36.7; O2SAT 100; BMI 30.3
[2022-02-19] MEDS: PANTOPRAZOLE 40 MG TABLET PO ×2 (04:13→21:02)
[2022-02-19 07:14] LABS: Hemoglobin 7.2 g/dL (14.0-18.0); Mean Corpuscular HGB Conc 31.3 g/dl (32-36); Mean Corpuscular Hemoglobin 25.7 pg (26-34); Mean Corpuscular Volume 82.1 fl (80-100); Platelet Count Result 189 k/mm3 (150-375); Red Cell Distribution Width 21.8 % (11.5-14.5); White Blood Count 4.6 K/mm3 (4.5-10.0)
[2022-02-19 07:17] LABS: INR 1.5; Prothrombin Time 17.7 Seconds (11.1-14.7)
[2022-02-19 07:20] LABS: Alanine Aminotransferase 17 U/L (6-50); Albumin Level 1.8 g/dL (3.5-5.1); Alkaline Phosphatase 97 U/L (38-126); Anion Gap 5 mmol/L (8-16); Aspartate Amino Transferase 36 U/L (17-59); Bilirubin,Total 0.7 mg/dL (0.2-1.3); Blood Urea Nitrogen 14 mg/dL (9-20); Calcium 7.3 mg/dL (8.4-10.2); Carbon Dioxide 23 mmol/L (22-30); Chloride 103 mmol/L (98-107); Estimated CRCL calculation 70 ml/min; Estimated Glomerular Filt Rate > 60; Glucose 105 mg/dL (65-110); Magnesium 1.8 mg/dL (1.6-2.3); Potassium 3.5 mmol/L (3.4-5.0); Sodium 131 mmol/L (137-145)
--- NOTE | 2022-02-19 08:14 | PM.IMPN ---
Progress Note: A&P Assessment and Plan (1) Pneumonia: Code(s): J18.9 - Pneumonia, unspecified organism Status: Acute Assessment and Plan: Day 2 of azithromycin and Rocephin Tachypneic and hypotensive but stable on room air, monitor closely (2) Abdominal ascites: Code(s): R18.8 - Other ascites Status: Acute Assessment and Plan: Paracentesis scheduled for today 5L taken off today GI consult pending (3) Volume overload: Code(s): E87.70 - Fluid overload, unspecified Status: Acute Assessment and Plan: Continue IV Lasix and Aldactone (4) Liver cirrhosis: Code(s): K74.60 - Unspecified cirrhosis of liver Status: Acute Assessment and Plan: Recurrent ascites requiring hepatology consultation, appreciate gastroenterology consultation (5) Anemia: Qualifiers: Anemia type: unspecified type Qualified Code(s): D64.9 - Anemia, unspecified Code(s): D64.9 - Anemia, unspecified Status: Acute Assessment and Plan: Hemoglobin and hematocrit are stable on review of previous labs. (6) Hypokalemia: Code(s): E87.6 - Hypokalemia Status: Acute Assessment and Plan: Potassium will be replaced and monitored. (7) Diabetes mellitus: Code(s): E11.9 - Type 2 diabetes mellitus without complications Status: Acute Assessment and Plan: Hold metformin while hospitalized. Initiate sliding scale insulin, Accu-Cheks, and hypoglycemic protocol. (8) Prostate cancer: Code(s): C61 - Malignant neoplasm of prostate Status: Acute Assessment and Plan: Continue bicalutamide. (9) Hyponatremia: Code(s): E87.1 - Hypo-osmolality and hyponatremia Status: Acute Assessment and Plan: Likely secondary to anasarca from cirrhosis, monitor with diuresis and paracentesis Plan DVT prophylaxis with SCDs Code status full code Subjective Date/time seen: 02/19/22 08:14 Interval history: Paracentesis performed today, 5L removed. No overnight events noted. No chest pain or shortness of breath. No nausea, vomiting or diarrhea. No fevers or chills. Review of Systems Review of Systems: 12 point review of systems was assessed and was negative except as noted in the HPI Exam Narrative: General: No acute distress, alert and oriented per baseline HEENT: Atraumatic, normocephalic, mucous membranes moist CV: Regular rate and rhythm, S1, S2 Lungs: Diminished BS throughout Abdomen: Distended, soft, NT, significant fluid noted remaining Extremities: Normal to inspection, edema noted Skin: No rashes noted, no lesions or wounds seen Psych: Euthymic, normal affect Objective Data Vital Signs Vital Signs: Vital Signs - 24 hr 02/18/22 11:01 02/18/22 11:12 02/18/22 12:40 Temperature 97.6 F Pulse Rate 93 95 96 Respiratory Rate 14 19 Blood Pressure 115/90 129/84 Pulse Oximetry 100 100 Oxygen Delivery Room Air 02/18/22 14:10 02/18/22 15:30 02/18/22 14:03 Temperature Pulse Rate 98 101 H 97 Respiratory Rate 20 19 19 Blood Pressure 131/91 H 122/83 Pulse Oximetry 100 100 100 Oxygen Delivery 02/18/22 14:20 02/18/22 14:30 02/18/22 14:45 Temperature Pulse Rate 98 100 104 H Respiratory Rate 18 18 22 H Blood Pressure Pulse Oximetry 100 100 Oxygen Delivery 02/18/22 15:10 02/18/22 15:15 02/18/22 15:45 Temperature Pulse Rate 100 102 H Respiratory Rate 22 H 20 18 Blood Pressure Pulse Oximetry 100 100 Oxygen Delivery 02/18/22 15:46 02/18/22 15:47 02/18/22 20:53 Temperature 98.2 F Pulse Rate 102 H 105 H Respiratory Rate 21 H 23 H Blood Pressure 112/80 113/88 Pulse Oximetry 100 100 Oxygen Delivery Room Air 02/18/22 21:34 02/18/22 20:00 02/19/22 00:00 Temperature 97.6 F Pulse Rate 102 H 103 H 99 Respiratory Rate 20 Blood Pressure 109/79 Pulse Oximetry 98 Oxygen Delivery
[2022-02-19 08:20] LABS: Glucose Point of Care 121 mg/dl (65-105)
--- NOTE | 2022-02-19 09:30 | PC.NURSE ---
Pt off the unit to ultrasound
[2022-02-19 11:49] LABS: Glucose Point of Care 97 mg/dl (65-105)
[2022-02-19 16:51] LABS: Glucose Point of Care 172 mg/dl (65-105)
[2022-02-19] MEDS: FUROSEMIDE INJ 40 MG/4 ML VIAL IV PUSH (19:05)
[2022-02-19 22:04] LABS: Glucose Point of Care 159 mg/dl (65-105)
[2022-02-20] VITALS (9 sets, daily range): BP systolic 90–119; BP diastolic 57–82; PULSE 57–95; RESP 14–20; TEMP 36.1–36.8; O2SAT 98–100
[2022-02-20] MEDS: SIMVASTATIN 20 MG TABLET PO ×2 (00:02→21:15)
[2022-02-20 07:40] LABS: Glucose Point of Care 132 mg/dl (65-105)
[2022-02-20] MEDS: BICALUTAMIDE (*CHEMO) 50 MG TABLET PO (08:32)
[2022-02-20] MEDS: PANTOPRAZOLE 40 MG TABLET PO ×2 (08:32→21:14)
[2022-02-20] MEDS: LORATADINE 10 MG TABLET PO (08:32)
[2022-02-20] MEDS: FUROSEMIDE INJ 40 MG/4 ML VIAL IV PUSH ×2 (08:32→17:20)
[2022-02-20] MEDS: SPIRONOLACTONE 50 MG TABLET 100 MG PO (08:32)
--- NOTE | 2022-02-20 10:22 | PM.IMPN ---
Progress Note: A&P Assessment and Plan (1) Pneumonia: Code(s): J18.9 - Pneumonia, unspecified organism Status: Acute Assessment and Plan: Day 3 of azithromycin and Rocephin Still somewhat hypotensive, in no longer tachycardic or tachypneic (2) Abdominal ascites: Code(s): R18.8 - Other ascites Status: Acute Assessment and Plan: Paracentesis scheduled for today 5L taken off today GI consult pending 02/20: Appreciate GI consultation, increasing Aldactone dose, recommend follow-up with dismantler for higher level of care due to decompensated alcoholic liver disease status post paracentesis (3) Volume overload: Code(s): E87.70 - Fluid overload, unspecified Status: Acute Assessment and Plan: Continue IV Lasix and Aldactone (4) Liver cirrhosis: Code(s): K74.60 - Unspecified cirrhosis of liver Status: Acute Assessment and Plan: Recurrent ascites requiring hepatology consultation, appreciate gastroenterology consultation MELD 11, 6% mortality risk in 3 months (5) Anemia: Qualifiers: Anemia type: unspecified type Qualified Code(s): D64.9 - Anemia, unspecified Code(s): D64.9 - Anemia, unspecified Status: Acute Assessment and Plan: Hemoglobin and hematocrit are stable on review of previous labs. (6) Hypokalemia: Code(s): E87.6 - Hypokalemia Status: Acute Assessment and Plan: Potassium will be replaced and monitored. (7) Diabetes mellitus: Code(s): E11.9 - Type 2 diabetes mellitus without complications Status: Acute Assessment and Plan: Hold metformin while hospitalized. Initiate sliding scale insulin, Accu-Cheks, and hypoglycemic protocol. (8) Prostate cancer: Code(s): C61 - Malignant neoplasm of prostate Status: Acute Assessment and Plan: Continue bicalutamide. (9) Hyponatremia: Code(s): E87.1 - Hypo-osmolality and hyponatremia Status: Acute Assessment and Plan: Likely secondary to anasarca from cirrhosis, monitor with diuresis and paracentesis Plan DVT prophylaxis with SCDs Code status full code Subjective Date/time seen: 02/20/22 10:22 Interval history: Patient still c/o abdominal pain. No overnight events noted. No chest pain or shortness of breath. No nausea, vomiting or diarrhea. No fevers or chills. Review of Systems Review of Systems: 12 point review of systems was assessed and was negative except as noted in the HPI Exam Narrative: General: No acute distress, alert and oriented per baseline HEENT: Atraumatic, normocephalic, mucous membranes moist CV: Regular rate and rhythm, S1, S2 Lungs: Diminished BS throughout Abdomen: Distended, soft, NT, significant fluid noted remaining Extremities: Normal to inspection, edema noted Skin: No rashes noted, no lesions or wounds seen Psych: Euthymic, normal affect Objective Data Vital Signs Vital Signs: Vital Signs - 24 hr 02/19/22 16:00 02/19/22 14:00 02/19/22 22:08 Temperature 97.6 F 98.0 F Pulse Rate 87 88 93 Respiratory Rate 20 21 H Blood Pressure 106/64 113/71 Pulse Oximetry 100 100 Oxygen Delivery 02/19/22 21:00 02/19/22 20:00 02/20/22 00:00 Temperature Pulse Rate 90 80 Respiratory Rate Blood Pressure Pulse Oximetry Oxygen Delivery Room Air 02/20/22 04:00 02/20/22 06:00 02/20/22 08:40 Temperature 97.0 F L Pulse Rate 87 92 Respiratory Rate 20 Blood Pressure 119/82 Pulse Oximetry 98 Oxygen Delivery Room Air Intake/Output Intake/Output: Intake & Output 02/17/22 02/18/22 02/19/22 02/20/22 23:59 23:59 23:59 23:59 Intake Total 720 800 300 Output Total 1190 5000 Balance -470 -4200 300 Meds/Results Medications: Active Medications Generic Name Dose Route Start Last Admin Trade Name Evaristoq PRN Reason Stop Dose Admin Acetaminophen 650 mg 02/18/22 2
[2022-02-20 10:58] LABS: Basophils Percent Auto 0.2 % (0.2-1.2); Eosinophils Percent Auto 0.2 % (0-4.4); Hemoglobin 9.1 g/dL (14.0-18.0); Immature Granulocyte Absolute 0.03 K/mm3 (0.00-0.031); Immature Granulocyte Percent A 0.7 % (0-0.5); Lymphocytes Absolute Auto 1.28 K/mm3 (0.9-3.2); Lymphocytes Percent Auto 28.4 % (18.3-44.2); Mean Corpuscular HGB Conc 31.4 g/dl (32-36); Mean Corpuscular Hemoglobin 26.2 pg (26-34); Mean Corpuscular Volume 83.6 fl (80-100); Mean Platelet Volume 9.5 fl (7.4-10.4); Monocytes Absolute Auto 0.6 K/mm3 (0.1-0.6); Monocytes Percent Auto 12.2 % (2.6-8.5); Neutrophils Absolute Auto 2.6 K/mm3 (1.3-6.7); Neutrophils Percent Auto 58.3 % (45.5-73.1); Platelet Count Result 201 k/mm3 (150-375); Red Blood Count 3.47 M/mm3 (4.6-6.20); Red Cell Distribution Width 22.5 % (11.5-14.5); White Blood Count 4.5 K/mm3 (4.5-10.0)
[2022-02-20 11:11] LABS: Alanine Aminotransferase 17 U/L (6-50); Albumin Level 1.9 g/dL (3.5-5.1); Alkaline Phosphatase 104 U/L (38-126); Anion Gap 4 mmol/L (8-16); Aspartate Amino Transferase 36 U/L (17-59); Bilirubin,Total 0.7 mg/dL (0.2-1.3); Blood Urea Nitrogen 13 mg/dL (9-20); Calcium 7.4 mg/dL (8.4-10.2); Carbon Dioxide 22 mmol/L (22-30); Chloride 105 mmol/L (98-107); Estimated CRCL calculation 109 ml/min; Estimated Glomerular Filt Rate > 60; Glucose 137 mg/dL (65-110); Potassium 3.3 mmol/L (3.4-5.0); Sodium 131 mmol/L (137-145)
[2022-02-20 11:31] LABS: Glucose Point of Care 136 mg/dl (65-105)
--- NOTE | 2022-02-20 16:19 | WPDGICN ---
Assessment and Plan Assessment and plan (1) Alcoholic cirrhosis of liver with ascites: Code(s): K70.31 - Alcoholic cirrhosis of liver with ascites Status: Acute Assessment and Plan: decompensated with ascites will ask radiology to do another paracentesis and also get fluid sample he is more comfortable also will increase aldactone since he also had hypokalemia and continue lasix (monitor renal function) will need referral to hepatology at [facility] because decompensation (2) Hypokalemia: Code(s): E87.6 - Hypokalemia Status: Acute Assessment and Plan: treated (3) Hyponatremia: Code(s): E87.1 - Hypo-osmolality and hyponatremia Status: Acute (4) Bilateral edema of lower extremity: Code(s): R60.0 - Localized edema Status: Acute Assessment and Plan: with anasarca 2g na diet (5) Anemia: Qualifiers: Anemia type: unspecified type Qualified Code(s): D64.9 - Anemia, unspecified Code(s): D64.9 - Anemia, unspecified Status: Acute Assessment and Plan: stable (6) Esophagitis, reflux: Code(s): K21.00 - Gastro-esophageal reflux disease with esophagitis, without bleeding Status: Acute Assessment and Plan: last egd with sever esophagitis no gib on ppi GI Consult Note Consult date/time: 02/20/22 16:19 Reason for consult: alcoholic cirrhosis, ascites HPI: Elie Chow is a 57 year old male with history of alcoholic?cirrhosis (quick about 2 years ago), hypertension, diabetes, chronic anemia, gastroesophageal reflux disease, esophageal ulcers with last EGD early this year, prostate cancer status post radiation, and history of DVT and pulmonary embolism who came to the emergency department via EMS from home for evaluation of increasing swelling and weakness. Noted worsening lower extremity edema and also more abdominal girth with shortness of breath. He has been on 100mg aldactone at home and last paracentesis was on 12/09/2021 at which time he they were able to get off 5 L.? This time again underwent another 5 liters removed, received albumin iv and feeling better but still with abdominal distension. Review of Systems Constitutional: Constitutional: Reports fatigue Eyes: Eyes: Denies blurry vision ENT: Reports Normal hearing present Cardiovascular: Cardiovascular: Reports pedal edema Respiratory: Respiratory: Reports dyspnea on exertion Gastrointestinal: Gastrointestinal: Reports abdominal pain Genitourinary: Genitourinary: Denies hematuria Integumentary/Breasts: Skin/Breast: Denies rash Neurologic: Denies Abnormal speech present [facility] Past Medical History Medical History (Updated 02/20/22 @ 16:23 by John Wilcox MD) Alcoholic cirrhosis of liver with ascites B12 deficiency Deep venous thrombosis Diabetes mellitus Hiatal hernia Hypertension Liver cirrhosis Prostate cancer Status post radiation. Pulmonary embolism Surgical History Surgical History (Updated 02/18/22 @ 22:59 by Omayra Mcmahon PA-C) History of prostate biopsy Family History Family History Father Stomach cancer Heart attack Mother Heart disease Hypertension Social History Social History (Updated 02/18/22 @ 23:00 by Omayra Mcmahon PA-C) Social History: Surrogate medical decision maker: Ora Chow, sibling. Code status: Full code. Smoking packs per day: 0.5 Smoking cigarettes per day: 10.0 Years smoked: 12 Smoking pack-years: 6.00 Smoking status: Former smoker Tobacco type: cigarettes Alcohol intake: former Alcohol use details: quit in 2017 Substance use: never Living arrangements: alone Occupation/Education: retired Spiritual care concerns: No Meds Home Medications and Allergies Home Medications Medication Instructions Recorded Confirmed Type aspirin 81 mg tablet,delayed 81 mg PO LOIS
[2022-02-20 16:21] LABS: Glucose Point of Care 137 mg/dl (65-105)
[2022-02-20 17:46] LABS: Appearance Peritoneal Fluid Clear (Clear); Color Peritoneal Fluid Yellow (Colorless); Lymphocytes Peritoneal Fluid 47 %; Macrophages Peritoneal Fluid 9 %; Mesothelial Cells Peritoneal Fluid 9 %; Monocytes Peritoneal Fluid 35 %; Nucleated Cells Peritoneal Flu 50 /uL (0-500); RBC Peritoneal Fluid 67 /uL (0-100000); Source Peritoneal Fluid Peritoneal Fluid
[2022-02-20 21:25] LABS: Glucose Point of Care 179 mg/dl (65-105)
[2022-02-21] VITALS (10 sets, daily range): BP systolic 74–90; BP diastolic 54–64; PULSE 81–97; RESP 16–20; TEMP 36.4–36.6; O2SAT 94–99
[2022-02-21 06:14] LABS: Basophils Percent Auto 0.5 % (0.2-1.2); Eosinophils Percent Auto 0.8 % (0-4.4); Hematocrit 21.7 % (42.0-52.0); Immature Granulocyte Absolute 0.01 K/mm3 (0.00-0.031); Immature Granulocyte Percent A 0.3 % (0-0.5); Lymphocytes Absolute Auto 1.61 K/mm3 (0.9-3.2); Lymphocytes Percent Auto 44.1 % (18.3-44.2); Mean Corpuscular HGB Conc 32.3 g/dl (32-36); Mean Corpuscular Hemoglobin 26.3 pg (26-34); Mean Corpuscular Volume 81.6 fl (80-100); Mean Platelet Volume 9.3 fl (7.4-10.4); Monocytes Absolute Auto 0.5 K/mm3 (0.1-0.6); Neutrophils Absolute Auto 1.5 K/mm3 (1.3-6.7); Neutrophils Percent Auto 40.3 % (45.5-73.1); Platelet Count Result 163 k/mm3 (150-375); Red Blood Count 2.66 M/mm3 (4.6-6.20); White Blood Count 3.7 K/mm3 (4.5-10.0)
[2022-02-21 06:17] LABS: Alanine Aminotransferase 14 U/L (6-50); Albumin Level 1.5 g/dL (3.5-5.1); Alkaline Phosphatase 82 U/L (38-126); Anion Gap 2 mmol/L (8-16); Aspartate Amino Transferase 29 U/L (17-59); Bilirubin,Total 0.4 mg/dL (0.2-1.3); Blood Urea Nitrogen 14 mg/dL (9-20); Calcium 6.9 mg/dL (8.4-10.2); Carbon Dioxide 29 mmol/L (22-30); Chloride 101 mmol/L (98-107); Estimated CRCL calculation 96 ml/min; Estimated Glomerular Filt Rate > 60; Glucose 115 mg/dL (65-110); Potassium 3.3 mmol/L (3.4-5.0); Sodium 132 mmol/L (137-145)
[2022-02-21] MEDS: ALBUMIN HUMAN 25% 25 GM/100 ML 200 ML IVPB (06:32)
[2022-02-21 08:01] LABS: Glucose Point of Care 112 mg/dl (65-105)
[2022-02-21] MEDS: LORATADINE 10 MG TABLET PO (08:15)
[2022-02-21] MEDS: BICALUTAMIDE (*CHEMO) 50 MG TABLET PO (08:15)
[2022-02-21] MEDS: PANTOPRAZOLE 40 MG TABLET PO ×2 (08:15→20:34)
[2022-02-21] MEDS: FUROSEMIDE INJ 40 MG/4 ML VIAL IV PUSH ×2 (08:15→16:33)
[2022-02-21] MEDS: SPIRONOLACTONE 50 MG TABLET 150 MG PO (08:15)
[2022-02-21 11:32] LABS: Glucose Point of Care 197 mg/dl (65-105)
--- NOTE | 2022-02-21 12:14 | PM.IMPN ---
Progress Note: A&P Assessment and Plan (1) Pneumonia: Code(s): J18.9 - Pneumonia, unspecified organism Status: Acute Assessment and Plan: 02/21: Day 4 of azithromycin and Rocephin, stable on room air (2) Abdominal ascites: Code(s): R18.8 - Other ascites Status: Acute Assessment and Plan: Paracentesis scheduled for today 5L taken off today GI consult pending 02/20: Appreciate GI consultation, increasing Aldactone dose, recommend follow-up with jacqu[facility] lace weaver for higher level of care due to decompensated alcoholic liver disease status post paracentesis 02/21: GI recs for today pending, patient more hypotensive on inc doses of diuresis, on waiting list at [facility] for [facility], excepted by the GI fellow Dr. Hassan and GI attending Dr Cisneros at 1245pm 02/21/22 (3) Volume overload: Code(s): E87.70 - Fluid overload, unspecified Status: Acute Assessment and Plan: Continue IV Lasix and Aldactone, decompensated, hypotensive, waiting on bed at [facility] (4) Liver cirrhosis: Code(s): K74.60 - Unspecified cirrhosis of liver Status: Acute Assessment and Plan: Recurrent ascites requiring hepatology consultation, appreciate gastroenterology consultation MELD 11, 6% mortality risk in 3 months (5) Anemia: Qualifiers: Anemia type: unspecified type Qualified Code(s): D64.9 - Anemia, unspecified Code(s): D64.9 - Anemia, unspecified Status: Acute Assessment and Plan: Hemoglobin and hematocrit are stable on review of previous labs. (6) Hypokalemia: Code(s): E87.6 - Hypokalemia Status: Acute Assessment and Plan: Potassium will be replaced and monitored. 02/21: Potassium is still low despite increased dose of Aldactone, will replace and recheck (7) Diabetes mellitus: Code(s): E11.9 - Type 2 diabetes mellitus without complications Status: Acute Assessment and Plan: Hold metformin while hospitalized. Initiate sliding scale insulin, Accu-Cheks, and hypoglycemic protocol. (8) Prostate cancer: Code(s): C61 - Malignant neoplasm of prostate Status: Acute Assessment and Plan: Continue bicalutamide. (9) Hyponatremia: Code(s): E87.1 - Hypo-osmolality and hyponatremia Status: Acute Assessment and Plan: Likely secondary to anasarca from cirrhosis, monitor with diuresis and paracentesis 02/21: Sodium increased to 132 from 08/04, still down from 136 on admission, suspect this is secondary to fluid overload, attempting to diurese, however, this is challenging due to hypotension Plan Very sick patient with MELD of 11 and acute decompensated alcoholic liver cirrhosis, attempting to transfer for higher level of care is still pending. Bed at [facility] pending for hepatology evaluation. Accepted by GI felow Dr Mo moraes GI attending Dr Cisneros. They expect it will take 2-3 days or more to get a bed. DVT prophylaxis with SCDs Code status full code Subjective Date/time seen: 02/21/22 12:14 Interval history: Patient states he feels very weak and unwell. Still complaining of some abdominal discomfort. No overnight events noted. No chest pain or shortness of breath. No nausea, vomiting or diarrhea. No fevers or chills. Review of Systems Review of Systems: 12 point review of systems was assessed and was negative except as noted in the HPI Exam Narrative: General: No acute distress, alert and oriented per baseline HEENT: Atraumatic, normocephalic, mucous membranes moist CV: Regular rate and rhythm, S1, S2 Lungs: Diminished BS throughout Abdomen: More distended than yesterday, nontender Extremities: Normal to inspection, edema noted, 1+ nonpitting Skin: No rashes noted, no lesions or wounds seen Psych: Euthymic, normal affect Objective Data Vital Signs Vital Signs: Vital Signs - 24 hr 02/20/22 13:55 02/20/22 16:00 02/20/22 21:50 Temperature
[2022-02-21] MEDS: POTASSIUM CHLORIDE 20 MEQ TABLET 40 MEQ PO (13:07)
--- NOTE | 2022-02-21 14:15 | WPDGIPROGNO ---
Progress Note: A&P Assessment and Plan (1) Alcoholic cirrhosis of liver with ascites: Code(s): K70.31 - Alcoholic cirrhosis of liver with ascites Status: Acute Assessment and Plan: decompensated because of ascites will repeat another paracentesis and check fluid for SBP (already on abx though because pneumonia) meld 11 on admission (normal bili and creatinine) nutritional support, 2g na diet will need follow up with hepatology service (will send a referral) (2) Hypokalemia: Code(s): E87.6 - Hypokalemia Status: Acute Assessment and Plan: better, increased aldactone and renal function is normal (3) Hyponatremia: Code(s): E87.1 - Hypo-osmolality and hyponatremia Status: Acute (4) Pneumonia: Code(s): J18.9 - Pneumonia, unspecified organism Status: Acute Assessment and Plan: on abx (5) Prostate cancer: Code(s): C61 - Malignant neoplasm of prostate Status: Acute (6) Bilateral edema of lower extremity: Code(s): R60.0 - Localized edema Status: Acute Assessment and Plan: on diuretics Subjective Date/time seen: 02/21/22 14:15 Interval history: no new events Review of Systems Review of Systems: All systems reviewed & are unremarkable except as noted in HPI and below Exam Narrative: General: Chronically ill-appearing male sitting up in bed. HEENT: Wearing glasses. Bitemporal wasting. PERRL, EOMI. Sclerae anicteric. Neck: Supple. No JVD. Respiratory: Respirations are nonlabored. Lung sounds are slightly diminished at the bases. Cardiovascular: Regular rate and rhythm with S1-S2. Gastrointestinal: distended due to ascites. No significant tenderness to palpation throughout the abdomen. No guarding or rebound tenderness. Skin: Warm and dry. Erythema of the lower legs secondary to marked edema and venous stasis. Extremities: No cyanosis or clubbing. 3+ pitting edema to the flanks. Neurological: Alert. Cranial nerves 2-12 are grossly intact. Psychiatric: Pleasant and cooperative. Flat mood and affect. Objective Data Vital Signs Vital Signs: Vital Signs - 24 hr 02/20/22 16:00 02/20/22 21:50 02/20/22 21:15 Temperature 98.3 F Pulse Rate 94 57 L Respiratory Rate 14 Blood Pressure 90/57 L Pulse Oximetry 99 Oxygen Delivery Room Air 08/19/22 20:00 02/21/22 00:00 02/21/22 04:00 Temperature Pulse Rate 95 81 88 Respiratory Rate Blood Pressure Pulse Oximetry Oxygen Delivery 02/21/22 05:36 02/21/22 08:40 02/21/22 08:00 Temperature 97.9 F Pulse Rate 84 97 Respiratory Rate 16 Blood Pressure 74/54 L Pulse Oximetry 98 Oxygen Delivery Room Air Intake/Output Intake/Output: Intake & Output 02/18/22 02/19/22 02/20/22 02/21/22 23:59 23:59 23:59 23:59 Intake Total 720 979 498 9048 Output Total 1190 5000 5000 Balance -589 -7636 -8802 1060 Meds/Results Medications: Active Medications Generic Name Dose Route Start Last Admin Trade Name Freq PRN Reason Stop Dose Admin Acetaminophen 650 mg 02/18/22 20:51 02/18/22 21:46 Acetaminophen 325 Mg Tablet PO 650 mg Q6H PRN Administration Mild Pain (1-3) or Fever Bicalutamide 50 mg 02/19/22 09:00 02/21/22 08:15 Bicalutamide (*Chemo) 50 Mg Tablet PO 50 mg DAILY CHIRAG Administration Dextrose 12.5 gm 02/18/22 23:09 Dextrose 50% 25 Gm/50 Ml Syringe IV PUSH PRN PRN Hypoglycemia Protocol Furosemide 40 mg 02/19/22 09:00 02/21/22 08:15 Furosemide Inj 40 Mg/4 Ml Vial IV PUSH 40 mg BID CHIRAG Administration Glucagon 1 mg 02/18/22 23:09 Glucagon For Inj 1 Mg Vial IM PRN PRN Hypoglycemia Protocol Glucose 15 gm 02/18/22 23:09 Glucose Oral Gel 15 Gm Of Glucse In 37.5 Gm Tube PO PRN PRN Hypoglycemia Protocol Ceftriaxone Sodium/Dextrose 1 gm in 50 mls @ 100 mls/hr 02/18/22 23:10 02/20/22 21:44 Rocephin 1 Gm/D5w 50 Ml IV
[2022-02-21 16:17] LABS: Glucose Point of Care 200 mg/dl (65-105)
[2022-02-21] MEDS: SIMVASTATIN 20 MG TABLET PO (20:34)
[2022-02-21] MEDS: ACETAMINOPHEN 325 MG TABLET 650 MG PO (20:38)
[2022-02-21 20:59] LABS: Glucose Point of Care 166 mg/dl (65-105)
[2022-02-22] VITALS (7 sets, daily range): BP systolic 88–106; BP diastolic 62–85; PULSE 83–103; RESP 16–20; TEMP 36.2–36.6; O2SAT 98–100
[2022-02-22 06:01] LABS: Basophils Percent Auto 0.3 % (0.2-1.2); Eosinophils Percent Auto 0.8 % (0-4.4); Hematocrit 21.3 % (42.0-52.0); Immature Granulocyte Absolute 0.01 K/mm3 (0.00-0.031); Immature Granulocyte Percent A 0.3 % (0-0.5); Lymphocytes Absolute Auto 1.61 K/mm3 (0.9-3.2); Lymphocytes Percent Auto 42.9 % (18.3-44.2); Mean Corpuscular HGB Conc 31.9 g/dl (32-36); Mean Corpuscular Hemoglobin 26.7 pg (26-34); Mean Corpuscular Volume 83.5 fl (80-100); Mean Platelet Volume 9.6 fl (7.4-10.4); Monocytes Absolute Auto 0.5 K/mm3 (0.1-0.6); Monocytes Percent Auto 14.1 % (2.6-8.5); Neutrophils Absolute Auto 1.6 K/mm3 (1.3-6.7); Neutrophils Percent Auto 41.6 % (45.5-73.1); Platelet Count Result 149 k/mm3 (150-375); Red Blood Count 2.55 M/mm3 (4.6-6.20); Red Cell Distribution Width 22.2 % (11.5-14.5); White Blood Count 3.8 K/mm3 (4.5-10.0)
[2022-02-22 06:22] LABS: Alanine Aminotransferase 12 U/L (6-50); Albumin Level 1.8 g/dL (3.5-5.1); Alkaline Phosphatase 73 U/L (38-126); Anion Gap 0 mmol/L (8-16); Aspartate Amino Transferase 32 U/L (17-59); Bilirubin,Total 0.5 mg/dL (0.2-1.3); Blood Urea Nitrogen 17 mg/dL (9-20); Calcium 7.5 mg/dL (8.4-10.2); Carbon Dioxide 31 mmol/L (22-30); Chloride 98 mmol/L (98-107); Estimated CRCL calculation 109 ml/min; Estimated Glomerular Filt Rate > 60; Glucose 147 mg/dL (65-110); Sodium 129 mmol/L (137-145)
[2022-02-22 06:39] LABS: Hemoglobin 6.8 g/dL (14.0-18.0)
[2022-02-22 07:59] LABS: Glucose Point of Care 135 mg/dl (65-105)
--- NOTE | 2022-02-22 08:14 | WPDGIPROGNO ---
Progress Note: A&P Assessment and Plan (1) Alcoholic cirrhosis of liver with ascites: Code(s): K70.31 - Alcoholic cirrhosis of liver with ascites Status: Acute Assessment and Plan: decompensated because of ascites removed 10 liters during this hospitalization, he also received albumin iv per protocol- no SBP but he was already on abx increased aldactone to 200mg and also on lasix 2g na diet ? TIPS as outpatient- will need follow up with hepatology service (will send a referral) will repeat another paracentesis and check fluid for SBP (already on abx though because pneumonia) meld 11 on admission (normal bili and creatinine) nutritional support, 2g na diet (2) Hypokalemia: Code(s): E87.6 - Hypokalemia Status: Acute Assessment and Plan: better, increased aldactone and renal function is normal (3) Hyponatremia: Code(s): E87.1 - Hypo-osmolality and hyponatremia Status: Acute (4) Pneumonia: Code(s): J18.9 - Pneumonia, unspecified organism Status: Acute Assessment and Plan: on abx (5) Prostate cancer: Code(s): C61 - Malignant neoplasm of prostate Status: Acute (6) Bilateral edema of lower extremity: Code(s): R60.0 - Localized edema Status: Acute Assessment and Plan: on diuretics Subjective Date/time seen: 02/22/22 08:14 Interval history: another 5 liters removed yesterday, he is eating but still weak Review of Systems Review of Systems: All systems reviewed & are unremarkable except as noted in HPI and below Exam Narrative: General: Chronically ill-appearing male sitting up in bed. HEENT: Bitemporal wasting. PERRL, EOMI. Sclerae anicteric. Neck: Supple. No JVD. Respiratory: Respirations are nonlabored. Lung sounds are slightly diminished at the bases. Cardiovascular: Regular rate and rhythm with S1-S2. Gastrointestinal: less distended- ascites. No significant tenderness to palpation throughout the abdomen. No guarding or rebound tenderness. Skin: Warm and dry. Erythema of the lower legs secondary to marked edema and venous stasis. Extremities: No cyanosis or clubbing. 2+ pitting edema to the flanks. Neurological: Alert. Cranial nerves 2-12 are grossly intact. Psychiatric: Pleasant and cooperative. Flat mood and affect. Objective Data Vital Signs Vital Signs: Vital Signs - 24 hr 02/21/22 08:40 02/21/22 12:00 02/21/22 14:00 Temperature 97.6 F Pulse Rate 91 89 Respiratory Rate 20 Blood Pressure 85/64 L Pulse Oximetry 99 Oxygen Delivery Room Air 02/21/22 16:00 02/21/22 19:24 02/21/22 20:00 Temperature 97.8 F Pulse Rate 96 93 92 Respiratory Rate 17 Blood Pressure 90/63 L Pulse Oximetry 94 Oxygen Delivery 02/21/22 20:00 02/21/22 20:41 02/22/22 03:31 Temperature 97.8 F Pulse Rate 85 Respiratory Rate 16 Blood Pressure 92/62 L Pulse Oximetry 95 98 Oxygen Delivery Room Air Room Air 02/22/22 00:00 02/22/22 04:00 Temperature Pulse Rate 88 83 Respiratory Rate Blood Pressure Pulse Oximetry Oxygen Delivery Intake/Output Intake/Output: Intake & Output 02/19/22 02/20/22 02/21/22 02/22/22 23:59 23:59 23:59 23:59 Intake Total 723 943 5300 670 Output Total 5000 5000 Balance -4200 -4050 3110 670 Meds/Results Medications: Active Medications Generic Name Dose Route Start Last Admin Trade Name Freq PRN Reason Stop Dose Admin Acetaminophen 650 mg 02/18/22 20:51 02/21/22 20:38 Acetaminophen 325 Mg Tablet PO 650 mg Q6H PRN Administration Mild Pain (1-3) or Fever Bicalutamide 50 mg 02/19/22 09:00 02/21/22 08:15 Bicalutamide (*Chemo) 50 Mg Tablet PO 50 mg DAILY CHIRAG Administration Dextrose 12.5 gm 02/18/22 23:09 Dextrose 50% 25 Gm/50 Ml Syringe IV PUSH PRN PRN Hypoglycemia Protocol Furosemide 50 mg 02/22/22 09:00 Furosemide Inj 100 Mg/10 Ml Vial IV PUSH BID CHIRAG Glu
[2022-02-22] MEDS: SPIRONOLACTONE 50 MG TABLET 200 MG PO (09:25)
[2022-02-22] MEDS: LORATADINE 10 MG TABLET PO (09:25)
[2022-02-22] MEDS: MIDODRINE HCL 2.5 MG TABLET PO ×3 (09:25→17:11)
[2022-02-22] MEDS: PANTOPRAZOLE 40 MG TABLET PO ×2 (09:25→20:16)
[2022-02-22] MEDS: FUROSEMIDE INJ 100 MG/10 ML VIAL 50 MG IV PUSH ×2 (09:26→17:11)
[2022-02-22] MEDS: BICALUTAMIDE (*CHEMO) 50 MG TABLET PO (09:26)
--- NOTE | 2022-02-22 10:07 | PM.IMPN ---
Progress Note: A&P Assessment and Plan (1) Pneumonia: Code(s): J18.9 - Pneumonia, unspecified organism Status: Acute Assessment and Plan: 02/21: Day 4 of azithromycin and Rocephin, stable on room air 02/22: Completed 5 day course of azithromycin, day 5 of 7 of Rocephin, stable on room air, do not suspect patient had pneumonia, but will continue Rocephin for full 7 days due to high risk of SBP (2) Abdominal ascites: Code(s): R18.8 - Other ascites Status: Acute Assessment and Plan: 02/19: Paracentesis scheduled for today, 5L taken off, GI consult pending 02/20: Appreciate GI consultation, increasing Aldactone dose, recommend follow-up with business process engineer for higher level of care due to decompensated alcoholic liver disease status post paracentesis 02/21: GI recs for today pending, patient more hypotensive on inc doses of diuresis, [facility] to eval for TIPS, accepted by the GI fellow Dr. Hassan and GI attending Dr Cisneros at 1245pm 02/21/2202/22: Repeat paracentesis, 5 L removed again on 02/20, total of 10 L the last few days, albumin given afterwards, still hypotensive in decompensated liver failure, increase dose of Aldactone to 200 mg and Lasix to 100 mg daily, started midodrine today as well due to continued hypotension (3) Volume overload: Code(s): E87.70 - Fluid overload, unspecified Status: Acute Assessment and Plan: Continue IV Lasix and Aldactone, decompensated, hypotensive, waiting on bed at [facility] 02/22: Increased dose of Aldactone to 200 mg in Lasix to 100 mg, 50 mg twice daily (4) Liver cirrhosis: Code(s): K74.60 - Unspecified cirrhosis of liver Status: Acute Assessment and Plan: Recurrent ascites requiring hepatology consultation, appreciate gastroenterology consultation MELD 11, 6% mortality risk in 3 months 02/22: Continue to await bed at [facility] to evaluate for TIPS, accepted by hepatology there (5) Anemia: Qualifiers: Anemia type: unspecified type Qualified Code(s): D64.9 - Anemia, unspecified Code(s): D64.9 - Anemia, unspecified Status: Acute Assessment and Plan: Hemoglobin and hematocrit are stable on review of previous labs (6) Hypokalemia: Code(s): E87.6 - Hypokalemia Status: Acute Assessment and Plan: Potassium will be replaced and monitored. 02/21: Potassium is still low despite increased dose of Aldactone, will replace and recheck 02/22: Potassium up to 4 today, continue to monitor (7) Diabetes mellitus: Code(s): E11.9 - Type 2 diabetes mellitus without complications Status: Acute Assessment and Plan: Hold metformin while hospitalized. Initiate sliding scale insulin, Accu-Cheks, and hypoglycemic protocol. Glucose well controlled, consistently under 180 year (8) Prostate cancer: Code(s): C61 - Malignant neoplasm of prostate Status: Acute Assessment and Plan: Continue bicalutamide. (9) Hyponatremia: Code(s): E87.1 - Hypo-osmolality and hyponatremia Status: Acute Assessment and Plan: Likely secondary to anasarca from cirrhosis, monitor with diuresis and paracentesis 02/21: Sodium increased to 132 from 08/04, still down from 136 on admission, suspect this is secondary to fluid overload, attempting to diurese, however, this is challenging due to hypotension 02/22: Sodium decreased back down to 129, this is likely a combination of fluid overload and high doses of diuretics, will place patient on a fluid restriction of 1800 mL today, continue to monitor Plan Very sick patient with MELD of 11 and acute decompensated alcoholic liver cirrhosis, attempting to transfer for higher level of care is still pending. Bed at [facility] pending for hepatology evaluation for possible TIPS procedure. Accepted by GI fellow Dr Hassan and GI attending Dr Cisneros on 02/21/2022. They expect it will take 2-3 days or more to g
[2022-02-22 11:29] LABS: Glucose Point of Care 246 mg/dl (65-105)
[2022-02-22 13:05] LABS: Hematocrit 25.9 % (42.0-52.0); Hemoglobin 8.1 g/dL (14.0-18.0)
[2022-02-22] MEDS: INSULIN ASPART (*BKC) 100 UNITS/ML SUB-Q (13:34)
[2022-02-22 16:28] LABS: Glucose Point of Care 152 mg/dl (65-105)
[2022-02-22] MEDS: SIMVASTATIN 20 MG TABLET PO (20:16)
[2022-02-23] MEDS: traMADol HCL (*CRX) 50 MG TABLET PO (05:06)
[2022-02-23 06:00] VITALS: BP 107/66; PULSE 88; RESP 17; TEMP 36.6; O2SAT 97
[2022-02-23 06:41] LABS: Basophils Percent Auto 0.4 % (0.2-1.2); Eosinophils Absolute Auto 0.1 K/mm3 (0-0.3); Eosinophils Percent Auto 1.1 % (0-4.4); Hematocrit 24.7 % (42.0-52.0); Hemoglobin 7.9 g/dL (14.0-18.0); Immature Granulocyte Absolute 0.02 K/mm3 (0.00-0.031); Immature Granulocyte Percent A 0.4 % (0-0.5); Lymphocytes Percent Auto 36.6 % (18.3-44.2); Mean Corpuscular Hemoglobin 26.6 pg (26-34); Mean Corpuscular Volume 83.2 fl (80-100); Mean Platelet Volume 9.7 fl (7.4-10.4); Monocytes Absolute Auto 0.7 K/mm3 (0.1-0.6); Monocytes Percent Auto 14.2 % (2.6-8.5); Neutrophils Absolute Auto 2.2 K/mm3 (1.3-6.7); Neutrophils Percent Auto 47.3 % (45.5-73.1); Platelet Count Result 163 k/mm3 (150-375); Red Blood Count 2.97 M/mm3 (4.6-6.20); Red Cell Distribution Width 21.9 % (11.5-14.5); White Blood Count 4.7 K/mm3 (4.5-10.0)
[2022-02-23 07:00] LABS: Alanine Aminotransferase 12 U/L (6-50); Albumin Level 1.9 g/dL (3.5-5.1); Alkaline Phosphatase 89 U/L (38-126); Anion Gap 1 mmol/L (8-16); Aspartate Amino Transferase 25 U/L (17-59); Bilirubin,Total 0.4 mg/dL (0.2-1.3); Blood Urea Nitrogen 19 mg/dL (9-20); Calcium 7.3 mg/dL (8.4-10.2); Carbon Dioxide 32 mmol/L (22-30); Chloride 95 mmol/L (98-107); Estimated CRCL calculation 109 ml/min; Estimated Glomerular Filt Rate > 60; Glucose 121 mg/dL (65-110); Sodium 128 mmol/L (137-145)
[2022-02-23 07:27] LABS: Potassium 3.4 mmol/L (3.4-5.0)
--- NOTE | 2022-02-23 07:32 | PM.IMPN ---
Progress Note: A&P Assessment and Plan (1) Pneumonia: Code(s): J18.9 - Pneumonia, unspecified organism Status: Acute Assessment and Plan: 02/21: Day 4 of azithromycin and Rocephin, stable on room air 02/22: Completed 5 day course of azithromycin, day 5 of 7 of Rocephin, stable on room air, do not suspect patient had pneumonia, but will continue Rocephin for full 7 days due to high risk of SBP 02/23: Do not suspect PNA (2) Abdominal ascites: Code(s): R18.8 - Other ascites Status: Acute Assessment and Plan: 02/19: Paracentesis scheduled for today, 5L taken off, GI consult pending 02/20: Appreciate GI consultation, increasing Aldactone dose, recommend follow-up with logistics tech for higher level of care due to decompensated alcoholic liver disease status post paracentesis 02/21: GI recs for today pending, patient more hypotensive on inc doses of diuresis, on waiting list at [facility] for [facility]ology to eval for TIPS, accepted by the GI fellow Dr. Hassan and GI attending Dr Cisneros at 1245pm 02/21/2202/22: Repeat paracentesis, 5 L removed again on 02/20, total of 10 L the last few days, albumin given afterwards, still hypotensive in decompensated liver failure, increase dose of Aldactone to 200 mg and Lasix to 100 mg daily, started midodrine today as well due to continued hypotension 02/23: Rocephin for SBP prophylaxis, awaiting bed at [facility], BP stable Update: Culture from paracentesis fluid showed Enterococcus, Rocephin discontinued in favor of vancomycin, await sensitivities (3) Volume overload: Code(s): E87.70 - Fluid overload, unspecified Status: Acute Assessment and Plan: Continue IV Lasix and Aldactone, decompensated, hypotensive, waiting on bed at [facility] 02/22: Increased dose of Aldactone to 200 mg in Lasix to 100 mg, 50 mg twice daily (4) Liver cirrhosis: Code(s): K74.60 - Unspecified cirrhosis of liver Status: Acute Assessment and Plan: Recurrent ascites requiring hepatology consultation, appreciate gastroenterology consultation MELD 11, 6% mortality risk in 3 months 02/22: Continue to await bed at [facility] to evaluate for TIPS, accepted by hepatology there (5) Anemia: Qualifiers: Anemia type: unspecified type Qualified Code(s): D64.9 - Anemia, unspecified Code(s): D64.9 - Anemia, unspecified Status: Acute Assessment and Plan: Hemoglobin and hematocrit are stable on review of previous labs (6) Hypokalemia: Code(s): E87.6 - Hypokalemia Status: Acute Assessment and Plan: Potassium will be replaced and monitored. 02/21: Potassium is still low despite increased dose of Aldactone, will replace and recheck 02/22: Potassium up to 4 today, continue to monitor (7) Diabetes mellitus: Code(s): E11.9 - Type 2 diabetes mellitus without complications Status: Acute Assessment and Plan: Hold metformin while hospitalized. Initiate sliding scale insulin, Accu-Cheks, and hypoglycemic protocol. Glucose well controlled, consistently under 180 year (8) Prostate cancer: Code(s): C61 - Malignant neoplasm of prostate Status: Acute Assessment and Plan: Continue bicalutamide. (9) Hyponatremia: Code(s): E87.1 - Hypo-osmolality and hyponatremia Status: Acute Assessment and Plan: Likely secondary to anasarca from cirrhosis, monitor with diuresis and paracentesis 02/21: Sodium increased to 132 from 08/04, still down from 136 on admission, suspect this is secondary to fluid overload, attempting to diurese, however, this is challenging due to hypotension 02/22: Sodium decreased back down to 129, this is likely a combination of fluid overload and high doses of diuretics, will place patient on a fluid restriction of 1800 mL today, continue to monitor 02/23: Sodium decreased to 128, will d/c fluid restriction, trial salt tab daily, monitor Plan Very sick patient with M
[2022-02-23 07:55] LABS: Glucose Point of Care 119 mg/dl (65-105)
[2022-02-23 08:00] VITALS: PULSE 88; RESP 17; O2SAT 97
[2022-02-23] MEDS: LIDOCAINE 5% PATCH 1 PATCH TRANSDERM (08:07)
[2022-02-23] MEDS: SPIRONOLACTONE 50 MG TABLET 200 MG PO (08:08)
[2022-02-23] MEDS: BICALUTAMIDE (*CHEMO) 50 MG TABLET PO (08:08)
[2022-02-23] MEDS: LORATADINE 10 MG TABLET PO (08:08)
[2022-02-23] MEDS: MIDODRINE HCL 2.5 MG TABLET PO ×3 (08:08→16:01)
[2022-02-23] MEDS: PANTOPRAZOLE 40 MG TABLET PO ×2 (08:08→20:33)
[2022-02-23] MEDS: FUROSEMIDE INJ 100 MG/10 ML VIAL 50 MG IV PUSH ×2 (08:08→16:01)
--- NOTE | 2022-02-23 09:16 | PC.NURSE ---
charge nurse Jo Pathak informed MD Wilson of ascites fluid growing enterococcus species.
[2022-02-23] MEDS: SODIUM CHLORIDE 1 GM TABLET PO (09:58)
[2022-02-23 11:49] LABS: Glucose Point of Care 185 mg/dl (65-105)
[2022-02-23 14:00] VITALS: BP 93/66; PULSE 89; RESP 20; TEMP 36.8; O2SAT 97
--- NOTE | 2022-02-23 14:20 | PC.NURSE ---
called MD Wilson to report ascites fluid is growing enterococcus species. Awaiting call back.
--- NOTE | 2022-02-23 14:46 | WPDGIPROGNO ---
Progress Note: A&P Assessment and Plan (1) Alcoholic cirrhosis of liver with ascites: Code(s): K70.31 - Alcoholic cirrhosis of liver with ascites Status: Acute Assessment and Plan: decompensated because of ascites removed 10 liters during this hospitalization, he also received albumin iv per protocol currently on aldactone to 200mg and also on lasix 2g na diet ? TIPS as outpatient but will need to complete antibiotic treatment- will need follow up with hepatology service (will send a referral) meld 11 on admission (normal bili and creatinine)- will repeat tomorrow nutritional support, 2g na diet (2) SBP (spontaneous bacterial peritonitis): Code(s): K65.2 - Spontaneous bacterial peritonitis Status: Acute Assessment and Plan: + enterococcus in ascites fluid, now on vancomycin (cell count was normal but he already was on antibiotics when fluid was sent) (3) Hypokalemia: Code(s): E87.6 - Hypokalemia Status: Acute (4) Hyponatremia: Code(s): E87.1 - Hypo-osmolality and hyponatremia Status: Acute Assessment and Plan: low but stable (5) Pneumonia: Code(s): J18.9 - Pneumonia, unspecified organism Status: Acute Assessment and Plan: s/p antibiotics (6) Prostate cancer: Code(s): C61 - Malignant neoplasm of prostate Status: Acute (7) Bilateral edema of lower extremity: Code(s): R60.0 - Localized edema Status: Acute Assessment and Plan: on diuretics Subjective Date/time seen: 02/23/22 14:46 Interval history: no changes, + enterococcus from ascites fluid Review of Systems Review of Systems: All systems reviewed & are unremarkable except as noted in HPI and below Exam Narrative: General: Chronically ill-appearing male sitting up in bed. HEENT: Bitemporal wasting. PERRL, EOMI. Sclerae anicteric. Neck: Supple. No JVD. Respiratory: Respirations are nonlabored. Lung sounds are slightly diminished at the bases. Cardiovascular: Regular rate and rhythm with S1-S2. Gastrointestinal: less distended- ascites. No significant tenderness to palpation throughout the abdomen. No guarding or rebound tenderness. Skin: Warm and dry. Erythema of the lower legs secondary to marked edema and venous stasis. Extremities: No cyanosis or clubbing. 2+ pitting edema to the flanks. Neurological: Alert. Cranial nerves 2-12 are grossly intact. Psychiatric: Pleasant and cooperative. Flat mood and affect. Objective Data Vital Signs Vital Signs: Vital Signs - 24 hr 02/22/22 22:00 02/23/22 06:00 02/23/22 08:00 Temperature 97.1 F L 97.8 F Pulse Rate 91 88 88 Respiratory Rate 16 17 17 Blood Pressure 106/85 107/66 Pulse Oximetry 100 97 97 Oxygen Delivery Room Air Intake/Output Intake/Output: Intake & Output 02/20/22 02/21/22 02/22/22 02/23/22 23:59 23:59 23:59 23:59 Intake Total 950 3110 3590 440 Output Total 5000 Balance -4050 3110 3590 440 Meds/Results Medications: Active Medications Generic Name Dose Route Start Last Admin Trade Name Freq PRN Reason Stop Dose Admin Bicalutamide 50 mg 02/19/22 09:00 02/23/22 08:08 Bicalutamide (*Chemo) 50 Mg Tablet PO 50 mg DAILY CHIRAG Administration Dextrose 12.5 gm 02/18/22 23:09 Dextrose 50% 25 Gm/50 Ml Syringe IV PUSH PRN PRN Hypoglycemia Protocol Furosemide 50 mg 02/22/22 09:00 02/23/22 08:08 Furosemide Inj 100 Mg/10 Ml Vial IV PUSH 50 mg BID CHIRAG Administration Glucagon 1 mg 02/18/22 23:09 Glucagon For Inj 1 Mg Vial IM PRN PRN Hypoglycemia Protocol Glucose 15 gm 02/18/22 23:09 Glucose Oral Gel 15 Gm Of Glucse In 37.5 Gm Tube PO PRN PRN Hypoglycemia Protocol Dextrose 1,000 mls @ 100 mls/hr 02/18/22 23:09 Dextrose 5% 1,000 Ml IVPB PRN PRN Hypoglycemia Protocol Vancomycin HCl 1,250 mg in 250 mls @ 200 mls/hr 02/23/22 15:00 02/23/22 14:4
--- NOTE | 2022-02-23 16:44 | PC.NURSE ---
pt will received at total of 36.7 units this 12 hr shift, breakfast 8.1u bolus, lunch 8.1u bolus, and dinner 12.1 u bolus, with cont. rate of 0.7 u/hrs= 36.7 u/12hrs
[2022-02-23 16:49] LABS: Glucose Point of Care 146 mg/dl (65-105)
[2022-02-23] MEDS: SIMVASTATIN 20 MG TABLET PO (20:33)
[2022-02-23 21:30] VITALS: BP 83/61; PULSE 87; RESP 16; TEMP 36.2; O2SAT 100
[2022-02-23 22:00] VITALS: BP 80/40
[2022-02-23] MEDS: SODIUM CHLORIDE 0.9% IV 500 ML IV CONT (22:26)
[2022-02-23 23:00] VITALS: BP 95/65
[2022-02-24 06:00] VITALS: BP 81/57; PULSE 81; RESP 17; TEMP 36.2; O2SAT 97
[2022-02-24 06:26] LABS: Basophils Percent Auto 0.7 % (0.2-1.2); Eosinophils Absolute Auto 0.1 K/mm3 (0-0.3); Eosinophils Percent Auto 1.7 % (0-4.4); Hematocrit 24.4 % (42.0-52.0); Hemoglobin 7.6 g/dL (14.0-18.0); Immature Granulocyte Absolute 0.02 K/mm3 (0.00-0.031); Immature Granulocyte Percent A 0.5 % (0-0.5); Lymphocytes Absolute Auto 1.43 K/mm3 (0.9-3.2); Lymphocytes Percent Auto 35.1 % (18.3-44.2); Mean Corpuscular HGB Conc 31.1 g/dl (32-36); Mean Corpuscular Hemoglobin 26.5 pg (26-34); Mean Platelet Volume 9.4 fl (7.4-10.4); Monocytes Absolute Auto 0.6 K/mm3 (0.1-0.6); Monocytes Percent Auto 14.3 % (2.6-8.5); Neutrophils Absolute Auto 1.9 K/mm3 (1.3-6.7); Neutrophils Percent Auto 47.7 % (45.5-73.1); Platelet Count Result 157 k/mm3 (150-375); Red Blood Count 2.87 M/mm3 (4.6-6.20); Red Cell Distribution Width 21.5 % (11.5-14.5); White Blood Count 4.1 K/mm3 (4.5-10.0)
[2022-02-24 06:39] LABS: INR 1.7; Prothrombin Time 18.9 Seconds (11.1-14.7)
[2022-02-24 06:42] LABS: Alanine Aminotransferase 12 U/L (6-50); Albumin Level 1.8 g/dL (3.5-5.1); Alkaline Phosphatase 79 U/L (38-126); Anion Gap 2 mmol/L (8-16); Aspartate Amino Transferase 34 U/L (17-59); Bilirubin,Total 0.3 mg/dL (0.2-1.3); Blood Urea Nitrogen 23 mg/dL (9-20); Calcium 7.2 mg/dL (8.4-10.2); Carbon Dioxide 32 mmol/L (22-30); Chloride 94 mmol/L (98-107); Estimated CRCL calculation 96 ml/min; Estimated Glomerular Filt Rate > 60; Glucose 199 mg/dL (65-110); Potassium 3.7 mmol/L (3.4-5.0); Sodium 128 mmol/L (137-145)
[2022-02-24 08:00] VITALS: O2SAT 97
[2022-02-24 08:04] LABS: Glucose Point of Care 148 mg/dl (65-105)
[2022-02-24] MEDS: LORATADINE 10 MG TABLET PO (08:54)
[2022-02-24] MEDS: SPIRONOLACTONE 50 MG TABLET 200 MG PO (08:54)
[2022-02-24] MEDS: SODIUM CHLORIDE 1 GM TABLET PO (08:54)
[2022-02-24] MEDS: BICALUTAMIDE (*CHEMO) 50 MG TABLET PO (08:54)
[2022-02-24] MEDS: FUROSEMIDE INJ 100 MG/10 ML VIAL 50 MG IV PUSH ×2 (08:54→18:11)
[2022-02-24] MEDS: MIDODRINE HCL 2.5 MG TABLET PO ×3 (08:55→18:11)
[2022-02-24] MEDS: LIDOCAINE 5% PATCH 1 PATCH TRANSDERM (08:55)
[2022-02-24] MEDS: PANTOPRAZOLE 40 MG TABLET PO ×2 (08:55→20:10)
[2022-02-24 11:51] LABS: Glucose Point of Care 216 mg/dl (65-105)
[2022-02-24] MEDS: INSULIN ASPART (*BKC) 100 UNITS/ML SUB-Q (12:48)
--- NOTE | 2022-02-24 13:06 | WPDGIPROGNO ---
Progress Note: A&P Assessment and Plan (1) Alcoholic cirrhosis of liver with ascites: Code(s): K70.31 - Alcoholic cirrhosis of liver with ascites Status: Acute Assessment and Plan: decompensated because of ascites removed 10 liters during this hospitalization, he also received albumin iv per protocol currently on aldactone to 200mg and also on lasix 2g na diet repeat meld 11 with normal bili and creatinine nutritional support, 2g na diet eventually will need to get established with hepatology (2) SBP (spontaneous bacterial peritonitis): Code(s): K65.2 - Spontaneous bacterial peritonitis Status: Acute Assessment and Plan: + enterococcus in ascites fluid, now on vancomycin no rebound and he is eating (3) Hypokalemia: Code(s): E87.6 - Hypokalemia Status: Acute (4) Hyponatremia: Code(s): E87.1 - Hypo-osmolality and hyponatremia Status: Acute Assessment and Plan: low but stable (5) Pneumonia: Code(s): J18.9 - Pneumonia, unspecified organism Status: Acute Assessment and Plan: s/p antibiotics (6) Prostate cancer: Code(s): C61 - Malignant neoplasm of prostate Status: Acute (7) Bilateral edema of lower extremity: Code(s): R60.0 - Localized edema Status: Acute Assessment and Plan: on diuretics Subjective Date/time seen: 02/24/22 13:06 Interval history: no new events, he is eating Review of Systems Review of Systems: All systems reviewed & are unremarkable except as noted in HPI and below Exam Narrative: General: Chronically ill-appearing male sitting up in bed. HEENT: Bitemporal wasting. PERRL, EOMI. Sclerae anicteric. Neck: Supple. No JVD. Respiratory: Respirations are nonlabored. Lung sounds are slightly diminished at the bases. Cardiovascular: Regular rate and rhythm with S1-S2. Gastrointestinal: less distended- ascites. No significant tenderness to palpation throughout the abdomen. No guarding or rebound tenderness. Skin: Warm and dry. Erythema of the lower legs secondary to marked edema and venous stasis. Extremities: No cyanosis or clubbing. 1+ pitting edema. Neurological: Alert. Cranial nerves 2-12 are grossly intact. Psychiatric: Pleasant and cooperative. Flat mood and affect. Objective Data Vital Signs Vital Signs: Vital Signs - 24 hr 02/23/22 14:00 02/23/22 22:00 02/23/22 23:00 Temperature 98.2 F Pulse Rate 89 Respiratory Rate 20 Blood Pressure 93/66 L 80/40 L 95/65 L Pulse Oximetry 97 Oxygen Delivery 02/23/22 21:30 02/24/22 06:00 02/24/22 08:00 Temperature 97.2 F L 97.1 F L Pulse Rate 87 81 Respiratory Rate 16 17 Blood Pressure 83/61 L 81/57 L Pulse Oximetry 100 97 97 Oxygen Delivery Room Air Intake/Output Intake/Output: Intake & Output 02/21/22 02/22/22 02/23/22 02/24/22 23:59 23:59 23:59 23:59 Intake Total 3110 3590 1650 580 Balance 3110 3590 1650 580 Meds/Results Medications: Active Medications Generic Name Dose Route Start Last Admin Trade Name Freq PRN Reason Stop Dose Admin Bicalutamide 50 mg 02/19/22 09:00 02/24/22 08:54 Bicalutamide (*Chemo) 50 Mg Tablet PO 50 mg DAILY CHIRAG Administration Dextrose 12.5 gm 02/18/22 23:09 Dextrose 50% 25 Gm/50 Ml Syringe IV PUSH PRN PRN Hypoglycemia Protocol Furosemide 50 mg 02/22/22 09:00 02/24/22 08:54 Furosemide Inj 100 Mg/10 Ml Vial IV PUSH 50 mg BID CHIRAG Administration Glucagon 1 mg 02/18/22 23:09 Glucagon For Inj 1 Mg Vial IM PRN PRN Hypoglycemia Protocol Glucose 15 gm 02/18/22 23:09 Glucose Oral Gel 15 Gm Of Glucse In 37.5 Gm Tube PO PRN PRN Hypoglycemia Protocol Dextrose 1,000 mls @ 100 mls/hr 02/18/22 23:09 Dextrose 5% 1,000 Ml IVPB PRN PRN Hypoglycemia Protocol Vancomycin HCl 1,250 mg in 250 mls @ 200 mls/hr 02/23/22 15:00 02/24/22 02:57 Vancomycin
[2022-02-24 14:00] VITALS: BP 90/64; PULSE 92; RESP 19; TEMP 36.8; O2SAT 99
--- NOTE | 2022-02-24 15:12 | P.PNIM_ITS ---
Progress Note: A&P Assessment and Plan (1) Pneumonia: Code(s): J18.9 - Pneumonia, unspecified organism Status: Acute Assessment and Plan: 02/21: Day 4 of azithromycin and Rocephin, stable on room air 02/22: Completed 5 day course of azithromycin, day 5 of 7 of Rocephin, stable on room air, do not suspect patient had pneumonia, but will continue Rocephin for full 7 days due to high risk of SBP 02/23: Do not suspect PNA (2) Abdominal ascites: Code(s): R18.8 - Other ascites Status: Acute Assessment and Plan: 02/19: Paracentesis scheduled for today, 5L taken off, GI consult pending 02/20: Appreciate GI consultation, increasing Aldactone dose, recommend follow- up with principal developer for higher level of care due to decompensated alcoholic liver disease status post paracentesis 02/21: GI recs for today pending, patient more hypotensive on inc doses of diu resis, on [facility] for [facility] to eval for TIPS, accepted by the GI fellow Dr. Hassan and GI attending Dr Cisneros at 1245pm 02/21/2202/22: Repeat paracentesis, 5 L removed again on 02/20, total of 10 L the last few days, albumin given afterwards, still hypotensive in decompensated liver failure, increase dose of Aldactone to 200 mg and Lasix to 100 mg daily, started midodrine today as well due to continued hypotension 02/23: Rocephin for SBP prophylaxis, awaiting bed at [facility], BP stable Update: Culture from paracentesis fluid showed Enterococcus, Rocephin discontinued in favor of vancomycin, await sensitivities 02/24: Continue vancomycin for suspected enterococcal spontaneous bacterial peritonitis (3) Volume overload: Code(s): E87.70 - Fluid overload, unspecified Status: Acute Assessment and Plan: Continue IV Lasix and Aldactone, decompensated, hypotensive, waiting on bed at [facility] 02/22: Increased dose of Aldactone to 200 mg in Lasix to 100 mg, 50 mg twice daily (4) Liver cirrhosis: Code(s): K74.60 - Unspecified cirrhosis of liver Status: Acute Assessment and Plan: Recurrent ascites requiring hepatology consultation, appreciate gastroenterology consultation MELD 11, 6% mortality risk in 3 months 02/22: Continue to await bed at [facility] to evaluate for TIPS, accepted by hepatology there (5) Anemia: Qualifiers: Anemia type: unspecified type Qualified Code(s): D64.9 - Anemia, unspecified Code(s): D64.9 - Anemia, unspecified Status: Inactive Assessment and Plan: Hemoglobin and hematocrit are stable on review of previous labs (6) Hypokalemia: Code(s): E87.6 - Hypokalemia Status: Acute Assessment and Plan: Potassium will be replaced and monitored. 02/21: Potassium is still low despite increased dose of Aldactone, will replace and recheck 02/22: Potassium up to 4 today, continue to monitor 02/24: Potassium continues to remain stable (7) Diabetes mellitus: Code(s): E11.9 - Type 2 diabetes mellitus without complications Status: Acute Assessment and Plan: Hold metformin while hospitalized. Initiate sliding scale insulin, Accu-Cheks, and hypoglycemic protocol. Glucose well controlled, consistently under 180 year (8) Prostate cancer: Code(s): C61 - Malignant neoplasm of prostate Status: Acute Assessment and Plan: Continue bicalutamide. (9) Hyponatremia: Code(s): E87.1 - Hypo-osmolality and hyponatremia Status: Acute Assessment and Plan: Likely seco
[2022-02-24 16:18] LABS: Glucose Point of Care 175 mg/dl (65-105)
[2022-02-24 19:55] VITALS: O2SAT 99
[2022-02-24] MEDS: SIMVASTATIN 20 MG TABLET PO (20:10)
[2022-02-24 20:55] LABS: Glucose Point of Care 264 mg/dl (65-105)
[2022-02-24 21:40] VITALS: BP 101/63; PULSE 93; RESP 18; TEMP 36.6; O2SAT 97
[2022-02-25 02:48] LABS: Vancomycin Trough 16.6 ug/mL (10.0-20.0)
[2022-02-25 06:00] VITALS: BP 100/68; PULSE 89; RESP 18; TEMP 36.4; O2SAT 100
[2022-02-25 06:40] LABS: Basophils Percent Auto 0.9 % (0.2-1.2); Eosinophils Absolute Auto 0.1 K/mm3 (0-0.3); Eosinophils Percent Auto 2.1 % (0-4.4); Hematocrit 24.9 % (42.0-52.0); Hemoglobin 7.9 g/dL (14.0-18.0); Immature Granulocyte Absolute 0.02 K/mm3 (0.00-0.031); Immature Granulocyte Percent A 0.5 % (0-0.5); Lymphocytes Absolute Auto 1.53 K/mm3 (0.9-3.2); Lymphocytes Percent Auto 35.4 % (18.3-44.2); Mean Corpuscular HGB Conc 31.7 g/dl (32-36); Mean Corpuscular Hemoglobin 26.6 pg (26-34); Mean Corpuscular Volume 83.8 fl (80-100); Mean Platelet Volume 9.8 fl (7.4-10.4); Monocytes Absolute Auto 0.8 K/mm3 (0.1-0.6); Monocytes Percent Auto 17.6 % (2.6-8.5); Neutrophils Absolute Auto 1.9 K/mm3 (1.3-6.7); Neutrophils Percent Auto 43.5 % (45.5-73.1); Platelet Count Result 168 k/mm3 (150-375); Red Blood Count 2.97 M/mm3 (4.6-6.20); Red Cell Distribution Width 21.5 % (11.5-14.5); White Blood Count 4.3 K/mm3 (4.5-10.0)
[2022-02-25 06:55] LABS: Alanine Aminotransferase 12 U/L (6-50); Albumin Level 1.9 g/dL (3.5-5.1); Alkaline Phosphatase 87 U/L (38-126); Anion Gap 2 mmol/L (8-16); Aspartate Amino Transferase 22 U/L (17-59); Bilirubin,Total 0.4 mg/dL (0.2-1.3); Blood Urea Nitrogen 23 mg/dL (9-20); Calcium 7.2 mg/dL (8.4-10.2); Carbon Dioxide 33 mmol/L (22-30); Chloride 93 mmol/L (98-107); Estimated CRCL calculation 96 ml/min; Estimated Glomerular Filt Rate > 60; Glucose 138 mg/dL (65-110); Potassium 3.6 mmol/L (3.4-5.0); Sodium 128 mmol/L (137-145)
[2022-02-25 07:33] LABS: Glucose Point of Care 156 mg/dl (65-105)
[2022-02-25 07:33] LABS: Anisocytosis 2+ (NORMAL); Hypochromasia 2+ (NORMAL); Platelet Estimate Adequate (Adequate)
[2022-02-25 07:34] LABS: Poikilocytosis 1+ (NORMAL); Target Cells 1+ (NORMAL)
[2022-02-25] MEDS: BICALUTAMIDE (*CHEMO) 50 MG TABLET PO (08:48)
[2022-02-25] MEDS: SPIRONOLACTONE 50 MG TABLET 200 MG PO (08:48)
[2022-02-25] MEDS: LORATADINE 10 MG TABLET PO (08:48)
[2022-02-25] MEDS: PANTOPRAZOLE 40 MG TABLET PO ×2 (08:48→19:58)
[2022-02-25] MEDS: SODIUM CHLORIDE 1 GM TABLET PO (08:48)
[2022-02-25] MEDS: MIDODRINE HCL 2.5 MG TABLET PO ×3 (08:48→16:57)
[2022-02-25] MEDS: FUROSEMIDE INJ 100 MG/10 ML VIAL 50 MG IV PUSH ×2 (08:48→16:57)
[2022-02-25] MEDS: LIDOCAINE 5% PATCH 1 PATCH TRANSDERM (08:49)
[2022-02-25 11:48] LABS: Glucose Point of Care 148 mg/dl (65-105)
[2022-02-25 14:00] VITALS: BP 91/64; PULSE 92; RESP 18; TEMP 36.4; O2SAT 99
--- NOTE | 2022-02-25 14:03 | WPDGIPROGNO ---
Progress Note: A&P Assessment and Plan (1) Alcoholic cirrhosis of liver with ascites: Code(s): K70.31 - Alcoholic cirrhosis of liver with ascites Status: Acute Assessment and Plan: decompensated because of ascites removed 10 liters during this hospitalization, he also received albumin iv per protocol currently on aldactone to 200mg and also on lasix 2g na diet meld 11 with normal bili and creatinine nutritional support, 2g na diet eventually will need to get established with hepatology (2) SBP (spontaneous bacterial peritonitis): Code(s): K65.2 - Spontaneous bacterial peritonitis Status: Acute Assessment and Plan: + enterococcus in ascites fluid, now on vancomycin no rebound and he is eating no changes (3) Hypokalemia: Code(s): E87.6 - Hypokalemia Status: Acute (4) Hyponatremia: Code(s): E87.1 - Hypo-osmolality and hyponatremia Status: Acute Assessment and Plan: low but stable (5) Pneumonia: Code(s): J18.9 - Pneumonia, unspecified organism Status: Acute Assessment and Plan: s/p antibiotics (6) Prostate cancer: Code(s): C61 - Malignant neoplasm of prostate Status: Acute (7) Bilateral edema of lower extremity: Code(s): R60.0 - Localized edema Status: Acute Assessment and Plan: on diuretics Subjective Date/time seen: 02/25/22 14:03 Interval history: no change, similar abdominal distension but overall comfortable Review of Systems Review of Systems: All systems reviewed & are unremarkable except as noted in HPI and below Exam Narrative: General: Chronically ill-appearing male sitting up in bed. HEENT: Bitemporal wasting. PERRL, EOMI. Sclerae anicteric. Neck: Supple. No JVD. Respiratory: Respirations are nonlabored. Lung sounds are slightly diminished at the bases. Cardiovascular: Regular rate and rhythm with S1-S2. Gastrointestinal: less distended- ascites. No significant tenderness to palpation throughout the abdomen. No guarding or rebound tenderness. Skin: Warm and dry. Extremities: No cyanosis or clubbing. 1+ pitting edema. Neurological: Alert. Cranial nerves 2-12 are grossly intact. Psychiatric: Pleasant and cooperative. Flat mood and affect. Objective Data Vital Signs Vital Signs: Vital Signs - 24 hr 02/24/22 19:55 02/24/22 21:40 02/25/22 06:00 Temperature 97.8 F 97.6 F Pulse Rate 93 89 Respiratory Rate 18 18 Blood Pressure 101/63 100/68 Pulse Oximetry 99 97 100 Oxygen Delivery Room Air 02/25/22 08:00 Temperature Pulse Rate Respiratory Rate Blood Pressure Pulse Oximetry Oxygen Delivery Room Air Intake/Output Intake/Output: Intake & Output 02/22/22 02/23/22 02/24/22 02/25/22 23:59 23:59 23:59 23:59 Intake Total 3590 1650 1470 3010 Output Total 1100 Balance 3590 1650 1470 1910 Meds/Results Medications: Active Medications Generic Name Dose Route Start Last Admin Trade Name Freq PRN Reason Stop Dose Admin Bicalutamide 50 mg 02/19/22 09:00 02/25/22 08:48 Bicalutamide (*Chemo) 50 Mg Tablet PO 50 mg DAILY CHIRAG Administration Dextrose 12.5 gm 02/18/22 23:09 Dextrose 50% 25 Gm/50 Ml Syringe IV PUSH PRN PRN Hypoglycemia Protocol Furosemide 50 mg 02/22/22 09:00 02/25/22 08:48 Furosemide Inj 100 Mg/10 Ml Vial IV PUSH 50 mg BID CHIRAG Administration Glucagon 1 mg 02/18/22 23:09 Glucagon For Inj 1 Mg Vial IM PRN PRN Hypoglycemia Protocol Glucose 15 gm 02/18/22 23:09 Glucose Oral Gel 15 Gm Of Glucse In 37.5 Gm Tube PO PRN PRN Hypoglycemia Protocol Dextrose 1,000 mls @ 100 mls/hr 02/18/22 23:09 Dextrose 5% 1,000 Ml IVPB PRN PRN Hypoglycemia Protocol Vancomycin HCl 1,250 mg in 250 mls @ 200 mls/hr 02/25/22 09:00 02/25/22 11:15 Vancomycin 1,250 Mg/D5w 250 Ml IVPB Not Given Q18H CHIRAG Insulin Aspart 2 - 5 units
[2022-02-25 18:07] LABS: Glucose Point of Care 161 mg/dl (65-105)
--- NOTE | 2022-02-25 18:11 | PM.IMPN ---
Progress Note: A&P Assessment and Plan (1) Pneumonia: Code(s): J18.9 - Pneumonia, unspecified organism Status: Acute Assessment and Plan: 02/21: Day 4 of azithromycin and Rocephin, stable on room air 02/22: Completed 5 day course of azithromycin, day 5 of 7 of Rocephin, stable on room air, do not suspect patient had pneumonia, but will continue Rocephin for full 7 days due to high risk of SBP 02/23: Do not suspect PNA (2) Abdominal ascites: Code(s): R18.8 - Other ascites Status: Acute Assessment and Plan: 02/19: Paracentesis scheduled for today, 5L taken off, GI consult pending 02/20: Appreciate GI consultation, increasing Aldactone dose, recommend follow-up with water aerobics instructor for higher level of care due to decompensated alcoholic liver disease status post paracentesis 02/21: GI recs for today pending, patient more hypotensive on inc doses of diuresis, [facility] to eval for TIPS, accepted by the GI fellow Dr. Hassan and GI attending Dr Cisneros at 1245pm 02/21/2202/22: Repeat paracentesis, 5 L removed again on 02/20, total of 10 L the last few days, albumin given afterwards, still hypotensive in decompensated liver failure, increase dose of Aldactone to 200 mg and Lasix to 100 mg daily, started midodrine today as well due to continued hypotension 02/23: Rocephin for SBP prophylaxis, awaiting bed at [facility], BP stable Update: Culture from paracentesis fluid showed Enterococcus, Rocephin discontinued in favor of vancomycin, await sensitivities 02/24: Continue vancomycin for suspected enterococcal spontaneous bacterial peritonitis (3) Volume overload: Code(s): E87.70 - Fluid overload, unspecified Status: Acute Assessment and Plan: Continue IV Lasix and Aldactone, decompensated, hypotensive, waiting on bed at [facility] 02/22: Increased dose of Aldactone to 200 mg in Lasix to 100 mg, 50 mg twice daily (4) Liver cirrhosis: Code(s): K74.60 - Unspecified cirrhosis of liver Status: Acute Assessment and Plan: Recurrent ascites requiring hepatology consultation, appreciate gastroenterology consultation MELD 11, 6% mortality risk in 3 months 02/22: Continue to await bed at [facility] to evaluate for TIPS, accepted by hepatology there (5) Anemia: Qualifiers: Anemia type: unspecified type Qualified Code(s): D64.9 - Anemia, unspecified Code(s): D64.9 - Anemia, unspecified Status: Inactive Assessment and Plan: Hemoglobin and hematocrit are stable on review of previous labs (6) Hypokalemia: Code(s): E87.6 - Hypokalemia Status: Acute Assessment and Plan: Potassium will be replaced and monitored. 02/21: Potassium is still low despite increased dose of Aldactone, will replace and recheck 02/22: Potassium up to 4 today, continue to monitor 02/24: Potassium continues to remain stable (7) Diabetes mellitus: Code(s): E11.9 - Type 2 diabetes mellitus without complications Status: Acute Assessment and Plan: Hold metformin while hospitalized. Initiate sliding scale insulin, Accu-Cheks, and hypoglycemic protocol. Glucose well controlled, consistently under 180 year (8) Prostate cancer: Code(s): C61 - Malignant neoplasm of prostate Status: Acute Assessment and Plan: Continue bicalutamide. (9) Hyponatremia: Code(s): E87.1 - Hypo-osmolality and hyponatremia Status: Acute Assessment and Plan: Likely secondary to anasarca from cirrhosis, monitor with diuresis and paracentesis 02/21: Sodium increased to 132 from 08/04, still down from 136 on admission, suspect this is secondary to fluid overload, attempting to diurese, however, this is challenging due to hypotension 02/22: Sodium decreased back down to 129, this is likely a combination of fluid overload and high doses of diuretics, will place patient on a fluid restriction of 1800 mL today, continu
[2022-02-25] MEDS: SIMVASTATIN 20 MG TABLET PO (19:58)
[2022-02-25 20:01] LABS: Glucose Point of Care 175 mg/dl (65-105)
[2022-02-25 22:00] VITALS: BP 94/61; PULSE 85; RESP 17; TEMP 36.8; O2SAT 97
[2022-02-26 05:38] VITALS: BP 93/61; PULSE 80; RESP 18; TEMP 37.1; O2SAT 97
[2022-02-26 06:52] LABS: Basophils Percent Auto 0.9 % (0.2-1.2); Eosinophils Absolute Auto 0.1 K/mm3 (0-0.3); Eosinophils Percent Auto 1.9 % (0-4.4); Hematocrit 24.8 % (42.0-52.0); Hemoglobin 7.8 g/dL (14.0-18.0); Immature Granulocyte Absolute 0.01 K/mm3 (0.00-0.031); Immature Granulocyte Percent A 0.2 % (0-0.5); Lymphocytes Percent Auto 37.3 % (18.3-44.2); Mean Corpuscular HGB Conc 31.5 g/dl (32-36); Mean Corpuscular Hemoglobin 26.8 pg (26-34); Mean Corpuscular Volume 85.2 fl (80-100); Mean Platelet Volume 9.7 fl (7.4-10.4); Monocytes Absolute Auto 0.6 K/mm3 (0.1-0.6); Monocytes Percent Auto 14.9 % (2.6-8.5); Neutrophils Absolute Auto 1.9 K/mm3 (1.3-6.7); Neutrophils Percent Auto 44.8 % (45.5-73.1); Platelet Count Result 176 k/mm3 (150-375); Red Blood Count 2.91 M/mm3 (4.6-6.20); Red Cell Distribution Width 21.5 % (11.5-14.5); White Blood Count 4.3 K/mm3 (4.5-10.0)
[2022-02-26 07:11] LABS: Alanine Aminotransferase 12 U/L (6-50); Albumin Level 1.9 g/dL (3.5-5.1); Alkaline Phosphatase 88 U/L (38-126); Anion Gap 2 mmol/L (8-16); Aspartate Amino Transferase 26 U/L (17-59); Bilirubin,Total 0.5 mg/dL (0.2-1.3); Blood Urea Nitrogen 25 mg/dL (9-20); Calcium 7.3 mg/dL (8.4-10.2); Carbon Dioxide 32 mmol/L (22-30); Chloride 94 mmol/L (98-107); Estimated CRCL calculation 96 ml/min; Estimated Glomerular Filt Rate > 60; Glucose 128 mg/dL (65-110); Potassium 3.7 mmol/L (3.4-5.0); Sodium 128 mmol/L (137-145)
[2022-02-26 07:35] LABS: Glucose Point of Care 118 mg/dl (65-105)
[2022-02-26] MEDS: MIDODRINE HCL 2.5 MG TABLET PO ×3 (08:46→17:11)
[2022-02-26] MEDS: BICALUTAMIDE (*CHEMO) 50 MG TABLET PO (08:46)
[2022-02-26] MEDS: SODIUM CHLORIDE 1 GM TABLET PO (08:46)
[2022-02-26] MEDS: SPIRONOLACTONE 50 MG TABLET 200 MG PO (08:46)
[2022-02-26] MEDS: LIDOCAINE 5% PATCH 1 PATCH TRANSDERM (08:47)
[2022-02-26] MEDS: FUROSEMIDE INJ 100 MG/10 ML VIAL 50 MG IV PUSH ×2 (08:47→17:11)
--- NOTE | 2022-02-26 09:56 | PCNFU ---
Nutrition Follow-Up Complete: Pressure ulcer stage 2 sacrum, intakes Severe malnutrition related to liver disease as evidenced by muscle wasting, fat loss, skin breakdown. Increased nutrient needs related to altered skin integrity and varied intake and appetite as evidenced by a noted pressure ulcer, pt report. Goal: Wound healing - Goal not being met. Communication with RN. Wound is not progressing. PO intake 75% of meals - Goal being met. Intakes have improved to 85-100% meals. Pt reports good intake of supplements. Pt current nutrition is Heart healthy. Nutrition recommendation: Continue current diet, Ensure Enlive daily, [place] BID. Last recorded weight is 84.7 kg. Bowel Motility: none charted Labs Reviewed: Alb 1.8 (related to liver disease), Na 128, Glu 128 Meds Noted: Lasix, protonix, novolog Skin: Stage 2/ DTI to sacrum Additional Notes: Pt appears cachectic with large amount of ascites to abdomen. Muscle wasting and fat loss present in all areas. Severe malnutrition present on admission related to cirrhosis. Had paracentesis 02/20/22 with 5 L removed. Weight today was 82 kg (180.81 lb which is - 40 lb/ 7 days.) Weight loss is from fluid removal. Weight is not a good indicator of nutritional status in this patient. Monitor intake, wt, labs, skin. Follow up in 7 days.
[2022-02-26 11:28] LABS: Glucose Point of Care 211 mg/dl (65-105)
[2022-02-26] MEDS: LORATADINE 10 MG TABLET PO (12:03)
[2022-02-26] MEDS: PANTOPRAZOLE 40 MG TABLET PO ×2 (12:03→20:27)
[2022-02-26] MEDS: INSULIN ASPART (*BKC) 100 UNITS/ML SUB-Q (12:04)
[2022-02-26 14:00] VITALS: BP 91/64; PULSE 88; RESP 18; TEMP 35.6; O2SAT 100
--- NOTE | 2022-02-26 15:53 | WPDGIPROGNO ---
Progress Note: A&P Assessment and Plan (1) Alcoholic cirrhosis of liver with ascites: Code(s): K70.31 - Alcoholic cirrhosis of liver with ascites Status: Acute Assessment and Plan: decompensated because of ascites removed 10 liters during this hospitalization, he also received albumin iv per protocol currently on aldactone to 200mg and also on lasix 2g na diet meld 11 with normal bili and creatinine nutritional support, 2g na diet eventually will need to get established with hepatology (2) SBP (spontaneous bacterial peritonitis): Code(s): K65.2 - Spontaneous bacterial peritonitis Status: Acute Assessment and Plan: + enterococcus in ascites fluid, now on vancomycin no rebound and he is eating no changes (3) Hypokalemia: Code(s): E87.6 - Hypokalemia Status: Acute (4) Hyponatremia: Code(s): E87.1 - Hypo-osmolality and hyponatremia Status: Acute Assessment and Plan: low but stable (5) Pneumonia: Code(s): J18.9 - Pneumonia, unspecified organism Status: Acute Assessment and Plan: s/p antibiotics (6) Prostate cancer: Code(s): C61 - Malignant neoplasm of prostate Status: Acute (7) Bilateral edema of lower extremity: Code(s): R60.0 - Localized edema Status: Acute Assessment and Plan: on diuretics Subjective Date/time seen: 02/26/22 15:53 Interval history: no changes Review of Systems Review of Systems: All systems reviewed & are unremarkable except as noted in HPI and below Exam Narrative: General: Chronically ill-appearing male sitting up in bed. HEENT: Bitemporal wasting. PERRL, EOMI. Sclerae anicteric. Neck: Supple. No JVD. Respiratory: Respirations are nonlabored. Lung sounds are slightly diminished at the bases. Cardiovascular: Regular rate and rhythm with S1-S2. Gastrointestinal: less distended- ascites. No significant tenderness to palpation throughout the abdomen. No guarding or rebound tenderness. Skin: Warm and dry. Extremities: No cyanosis or clubbing. 1+ pitting edema. Neurological: Alert. Cranial nerves 2-12 are grossly intact. Psychiatric: Pleasant and cooperative. Flat mood and affect. Objective Data Vital Signs Vital Signs: Vital Signs - 24 hr 02/25/22 20:00 02/25/22 22:00 02/26/22 05:38 Temperature 98.3 F 98.7 F Pulse Rate 85 80 Respiratory Rate 17 18 Blood Pressure 94/61 L 93/61 L Pulse Oximetry 97 97 Oxygen Delivery Room Air 02/26/22 08:00 02/26/22 14:00 Temperature 96.0 F L Pulse Rate 88 Respiratory Rate 18 Blood Pressure 91/64 L Pulse Oximetry 100 Oxygen Delivery Room Air Intake/Output Intake/Output: Intake & Output 02/23/22 02/24/22 02/25/22 02/26/22 23:59 23:59 23:59 23:59 Intake Total 1650 1470 3850 730 Output Total 2250 1325 Balance 1650 1470 1600 -595 Meds/Results Medications: Active Medications Generic Name Dose Route Start Last Admin Trade Name Freq PRN Reason Stop Dose Admin Bicalutamide 50 mg 02/19/22 09:00 02/26/22 08:46 Bicalutamide (*Chemo) 50 Mg Tablet PO 50 mg DAILY CHIRAG Administration Dextrose 12.5 gm 02/18/22 23:09 Dextrose 50% 25 Gm/50 Ml Syringe IV PUSH PRN PRN Hypoglycemia Protocol Furosemide 50 mg 02/22/22 09:00 02/26/22 08:47 Furosemide Inj 100 Mg/10 Ml Vial IV PUSH 50 mg BID CHIRAG Administration Glucagon 1 mg 02/18/22 23:09 Glucagon For Inj 1 Mg Vial IM PRN PRN Hypoglycemia Protocol Glucose 15 gm 02/18/22 23:09 Glucose Oral Gel 15 Gm Of Glucse In 37.5 Gm Tube PO PRN PRN Hypoglycemia Protocol Dextrose 1,000 mls @ 100 mls/hr 02/18/22 23:09 Dextrose 5% 1,000 Ml IVPB PRN PRN Hypoglycemia Protocol Vancomycin HCl 1,250 mg in 250 mls @ 200 mls/hr 02/25/22 09:00 02/26/22 03:11 Vancomycin 1,250 Mg/D5w 250 Ml IVPB Infused Q18H CHIRAG Infusion Insulin Aspart 2 - 5 units
--- NOTE | 2022-02-26 16:04 | PM.IMPN ---
Progress Note: A&P Assessment and Plan (1) Abdominal ascites: Code(s): R18.8 - Other ascites Status: Acute Assessment and Plan: 02/19: Paracentesis scheduled for today, 5L taken off, GI consult pending 02/20: Appreciate GI consultation, increasing Aldactone dose, recommend follow-up with billboard erector helper for higher level of care due to decompensated alcoholic liver disease status post paracentesis 02/21: GI recs for today pending, patient more hypotensive on inc doses of diuresis, on [facility] for [facility] to eval for TIPS, accepted by the GI fellow Dr. Hassan and GI attending Dr Cisneros at 1245pm 02/21/2202/22: Repeat paracentesis, 5 L removed again on 02/20, total of 10 L the last few days, albumin given afterwards, still hypotensive in decompensated liver failure, increase dose of Aldactone to 200 mg and Lasix to 100 mg daily, started midodrine today as well due to continued hypotension 02/23: Rocephin for SBP prophylaxis, awaiting bed at [facility], BP stable Update: Culture from paracentesis fluid showed Enterococcus, Rocephin discontinued in favor of vancomycin, await sensitivities 02/24: Continue vancomycin for suspected enterococcal spontaneous bacterial peritonitis (2) Volume overload: Code(s): E87.70 - Fluid overload, unspecified Status: Acute Assessment and Plan: Continue IV Lasix and Aldactone, decompensated, hypotensive, waiting on bed at [facility] 02/22: Increased dose of Aldactone to 200 mg in Lasix to 100 mg, 50 mg twice daily (3) Liver cirrhosis: Code(s): K74.60 - Unspecified cirrhosis of liver Status: Acute Assessment and Plan: Recurrent ascites requiring hepatology consultation, appreciate gastroenterology consultation MELD 11, 6% mortality risk in 3 months 02/22: Continue to await bed at [facility] to evaluate for TIPS, accepted by hepatology there (4) Anemia: Qualifiers: Anemia type: unspecified type Qualified Code(s): D64.9 - Anemia, unspecified Code(s): D64.9 - Anemia, unspecified Status: Inactive Assessment and Plan: Hemoglobin and hematocrit are stable on review of previous labs (5) Hypokalemia: Code(s): E87.6 - Hypokalemia Status: Acute Assessment and Plan: Potassium will be replaced and monitored. 02/21: Potassium is still low despite increased dose of Aldactone, will replace and recheck 02/22: Potassium up to 4 today, continue to monitor 02/24: Potassium continues to remain stable (6) Diabetes mellitus: Code(s): E11.9 - Type 2 diabetes mellitus without complications Status: Acute Assessment and Plan: Hold metformin while hospitalized. Initiate sliding scale insulin, Accu-Cheks, and hypoglycemic protocol. Glucose well controlled, consistently under 180 year Plan Very sick patient with MELD of 11 and acute decompensated alcoholic liver cirrhosis, attempting to transfer for higher level of care is still pending. Bed at [facility] pending for hepatology evaluation for possible TIPS procedure. Accepted by GI fellow Dr Hassan and GI attending Dr Cisneros on 02/21/2022. They expect it will take 2-3 days or more to get a bed. DVT prophylaxis with SCDs Code status full code Subjective Date/time seen: 02/26/22 16:04 Patient examined, chart reviewed. No new events, still awaiting bed at [facility] Review of Systems Review of Systems: All systems reviewed & are unremarkable except as noted in HPI and below Exam Narrative: General: Chronically ill-appearing male sitting up in bed. HEENT: Bitemporal wasting. PERRL, EOMI. Sclerae anicteric. Neck: Supple. No JVD. Respiratory: Respirations are nonlabored. Lung sounds are slightly diminished at the bases. Cardiovascular: Regular rate and rhythm with S1-S2. Gastrointestinal: less distended- ascites. No significant tenderness to palpation throughout the abdomen. No guarding or rebound tenderness. Skin: Warm and dry. Extremities: No cya
[2022-02-26 16:20] LABS: Glucose Point of Care 146 mg/dl (65-105)
[2022-02-26] MEDS: SIMVASTATIN 20 MG TABLET PO (20:27)
[2022-02-26 20:41] LABS: Vancomycin Trough 10.8 ug/mL (10.0-20.0)
[2022-02-26 21:34] VITALS: BP 96/60; PULSE 89; RESP 18; TEMP 37.2; O2SAT 98
[2022-02-26 22:32] LABS: Glucose Point of Care 173 mg/dl (65-105)
[2022-02-27] MEDS: traMADol HCL (*CRX) 50 MG TABLET PO ×2 (01:48→12:19)
[2022-02-27 05:35] LABS: Basophils Percent Auto 0.7 % (0.2-1.2); Eosinophils Absolute Auto 0.1 K/mm3 (0-0.3); Eosinophils Percent Auto 2.9 % (0-4.4); Hematocrit 23.3 % (42.0-52.0); Hemoglobin 7.3 g/dL (14.0-18.0); Immature Granulocyte Absolute 0.03 K/mm3 (0.00-0.031); Immature Granulocyte Percent A 0.7 % (0-0.5); Lymphocytes Absolute Auto 1.66 K/mm3 (0.9-3.2); Lymphocytes Percent Auto 36.5 % (18.3-44.2); Mean Corpuscular HGB Conc 31.3 g/dl (32-36); Mean Corpuscular Hemoglobin 26.4 pg (26-34); Mean Corpuscular Volume 84.1 fl (80-100); Mean Platelet Volume 9.3 fl (7.4-10.4); Monocytes Absolute Auto 0.7 K/mm3 (0.1-0.6); Monocytes Percent Auto 14.9 % (2.6-8.5); Neutrophils Percent Auto 44.3 % (45.5-73.1); Platelet Count Result 175 k/mm3 (150-375); Red Blood Count 2.77 M/mm3 (4.6-6.20); Red Cell Distribution Width 21.5 % (11.5-14.5); White Blood Count 4.6 K/mm3 (4.5-10.0)
[2022-02-27 05:36] VITALS: BP 90/65; PULSE 80; RESP 17; TEMP 37; O2SAT 96
[2022-02-27 05:53] LABS: Alanine Aminotransferase 11 U/L (6-50); Albumin Level 1.8 g/dL (3.5-5.1); Alkaline Phosphatase 78 U/L (38-126); Anion Gap 1 mmol/L (8-16); Aspartate Amino Transferase 24 U/L (17-59); Bilirubin,Total 0.5 mg/dL (0.2-1.3); Blood Urea Nitrogen 31 mg/dL (9-20); Calcium 7.5 mg/dL (8.4-10.2); Carbon Dioxide 30 mmol/L (22-30); Chloride 93 mmol/L (98-107); Estimated CRCL calculation 109 ml/min; Estimated Glomerular Filt Rate > 60; Glucose 121 mg/dL (65-110); Potassium 3.6 mmol/L (3.4-5.0); Sodium 124 mmol/L (137-145)
[2022-02-27 05:59] LABS: Anisocytosis 2+ (NORMAL); Hypochromasia 1+ (NORMAL); Platelet Estimate Adequate (Adequate); Poikilocytosis 1+ (NORMAL)
[2022-02-27 08:02] LABS: Glucose Point of Care 117 mg/dl (65-105)
[2022-02-27] MEDS: MIDODRINE HCL 2.5 MG TABLET PO ×3 (08:54→16:57)
[2022-02-27] MEDS: BICALUTAMIDE (*CHEMO) 50 MG TABLET PO (08:54)
[2022-02-27] MEDS: PANTOPRAZOLE 40 MG TABLET PO ×2 (08:54→20:26)
[2022-02-27] MEDS: SPIRONOLACTONE 50 MG TABLET 200 MG PO (08:54)
[2022-02-27] MEDS: LORATADINE 10 MG TABLET PO (08:54)
[2022-02-27] MEDS: FUROSEMIDE INJ 100 MG/10 ML VIAL 50 MG IV PUSH ×2 (08:56→16:57)
[2022-02-27] MEDS: SODIUM CHLORIDE 1 GM TABLET PO (08:57)
[2022-02-27] MEDS: LIDOCAINE 5% PATCH 1 PATCH TRANSDERM (08:57)
[2022-02-27 11:29] LABS: Glucose Point of Care 217 mg/dl (65-105)
[2022-02-27] MEDS: INSULIN ASPART (*BKC) 100 UNITS/ML SUB-Q (12:12)
[2022-02-27 14:00] VITALS: BP 96/53; PULSE 94; RESP 20; TEMP 36.7; O2SAT 98
[2022-02-27 16:21] LABS: Glucose Point of Care 159 mg/dl (65-105)
--- NOTE | 2022-02-27 17:48 | PM.IMPN ---
Progress Note: A&P Assessment and Plan (1) Abdominal ascites: Code(s): R18.8 - Other ascites Status: Acute Assessment and Plan: 02/19: Paracentesis scheduled for today, 5L taken off, GI consult pending 02/20: Appreciate GI consultation, increasing Aldactone dose, recommend follow-up with toolsmith for higher level of care due to decompensated alcoholic liver disease status post paracentesis 02/21: GI recs for today pending, patient more hypotensive on inc doses of diuresis, on waiting list at [facility] for [facility] to eval for TIPS, accepted by the GI fellow Dr. Hassan and GI attending Dr Cisneros at 1245pm 02/21/2202/22: Repeat paracentesis, 5 L removed again on 02/20, total of 10 L the last few days, albumin given afterwards, still hypotensive in decompensated liver failure, increase dose of Aldactone to 200 mg and Lasix to 100 mg daily, started midodrine today as well due to continued hypotension 02/23: Rocephin for SBP prophylaxis, awaiting bed at [facility], BP stable Update: Culture from paracentesis fluid showed Enterococcus, Rocephin discontinued in favor of vancomycin, await sensitivities 02/24: Continue vancomycin for suspected enterococcal spontaneous bacterial peritonitis 02/27: Given patient's shortness of breath and worsening abdominal distention, will place order for therapeutic paracentesis. Continue vancomycin for suspected enteric coccal spontaneous bacterial peritonitis (2) Volume overload: Code(s): E87.70 - Fluid overload, unspecified Status: Acute Assessment and Plan: Continue IV Lasix and Aldactone, decompensated, hypotensive, waiting on bed at [facility] 02/22: Increased dose of Aldactone to 200 mg in Lasix to 100 mg, 50 mg twice daily (3) Liver cirrhosis: Code(s): K74.60 - Unspecified cirrhosis of liver Status: Acute Assessment and Plan: Recurrent ascites requiring hepatology consultation, appreciate gastroenterology consultation MELD 11, 6% mortality risk in 3 months 02/22: Continue to await bed at [facility] to evaluate for TIPS, accepted by hepatology there (4) Anemia: Qualifiers: Anemia type: unspecified type Qualified Code(s): D64.9 - Anemia, unspecified Code(s): D64.9 - Anemia, unspecified Status: Inactive Assessment and Plan: Hemoglobin and hematocrit are stable on review of previous labs (5) Hypokalemia: Code(s): E87.6 - Hypokalemia Status: Acute Assessment and Plan: Potassium will be replaced and monitored. 02/21: Potassium is still low despite increased dose of Aldactone, will replace and recheck 02/22: Potassium up to 4 today, continue to monitor 02/24: Potassium continues to remain stable (6) Diabetes mellitus: Code(s): E11.9 - Type 2 diabetes mellitus without complications Status: Acute Assessment and Plan: Hold metformin while hospitalized. Initiate sliding scale insulin, Accu-Cheks, and hypoglycemic protocol. Glucose well controlled, consistently under 180 year Plan Very sick patient with MELD of 11 and acute decompensated alcoholic liver cirrhosis, attempting to transfer for higher level of care is still pending. Bed at [facility] pending for hepatology evaluation for possible TIPS procedure. Accepted by GI fellow Dr Hassan and GI attending Dr Cisneros on 02/21/2022. DVT prophylaxis with SCDs Code status full code Subjective Date/time seen: 02/27/22 17:48 Patient examined, chart reviewed. Patient reports more shortness of breath with exertion today. Abdomen more distended. Still awaiting bed at [facility] Review of Systems Review of Systems: All systems reviewed & are unremarkable except as noted in HPI and below Exam Narrative: General: Chronically ill-appearing male sitting up in bed. HEENT: Bitemporal wasting. PERRL, EOMI. Sclerae anicteric. Neck: Supple. No JVD. Respiratory: Respirations are nonlabored. Lung sounds are slightly diminished at the bases. Cardiovascular
[2022-02-27] MEDS: SIMVASTATIN 20 MG TABLET PO (20:26)
[2022-02-27 20:40] VITALS: PULSE 94; RESP 20; O2SAT 98
--- NOTE | 2022-02-27 21:55 | PC.NURSE ---
Received a call from [facility] placement [facility]. [facility]rella. [phone] is now available fpr this patient.
[2022-02-27 22:00] VITALS: BP 109/62; PULSE 92; RESP 18; TEMP 35.9; O2SAT 99
[2022-02-27 22:35] LABS: Glucose Point of Care 170 mg/dl (65-105)
[2022-02-28 00:25] VITALS: BP 81/58; PULSE 87; RESP 18; TEMP 36.1; O2SAT 99
--- NOTE | 2022-05-02 21:20 | PM.TDS ---
Transfer Discharge Sum: Prov Provider Date of admission: 02/20/22 12:01 Primary care physician: Mikey Turner MD Admitting clinician: Eitan Bass MD Consults: 02/19/22 Consult to Physician Routine Comment: Spoke to Dr Carreon @ 15:16pm (,[place]) Consulting Provider: John Wilcox instructional systems design consultant/MD group to consult: gastroenterology Reason for consultation: paracentesis with ascites and cirrhosis, transfer? Has provider been notified: Yes Receiving physician/facility: [facility] DS: Admitting Diagnosis Discharge Date 02/28/22 Admitting Diagnosis Ascites Transfer Discharge Sum: Med Medications Active and Home Medications: Home Medications aspirin 81 mg tablet,delayed release (Aspir-) 81 mg PO DAILY 08/08/19 [History Confirmed 02/18/22] ergocalciferol (vitamin D2) 1,250 mcg (50,000 unit) capsule (Drisdol) 1,250 mcg PO WEEKLY 08/08/19 [History Confirmed 02/18/22] metformin 500 mg tablet 1,000 mg PO BID 08/08/19 [History Confirmed 02/18/22] simvastatin 20 mg tablet 20 mg PO HS 08/08/19 [History Confirmed 02/18/22] bicalutamide 50 mg tablet 50 mg PO DAILY 01/09/20 [History Confirmed 02/18/22] fexofenadine 180 mg tablet 180 mg PO DAILY 03/18/21 [History Confirmed 02/18/22] furosemide 40 mg tablet 40 mg PO DAILY #30 tabs 11/24/21 [Rx Confirmed 02/18/22] pantoprazole 40 mg tablet,delayed release 40 mg PO Q12HR #60 tabs 11/24/21 [Rx Confirmed 02/18/22] spironolactone 50 mg tablet (Aldactone) 100 mg PO DAILY #60 tabs 11/24/21 [Rx Confirmed 02/18/22] Transfer Discharge Sum: Hosp Hospital Course Hospital course: Elie Chow is a 57 year old male PMHx of cirrhosis. Very sick patient with MELD of 11 and acute decompensated alcoholic liver cirrhosis, attempting to transfer for higher level of care is still pending. Bed at [facility] pending for hepatology evaluation for possible TIPS procedure. Accepted by GI fellow Dr Hassan and GI attending Dr Cisneros on 02/21/2022, bed available 02/27/22. During admission, patient had therapeautic paracentesis 02/19, 5 L removed. Cultures growing Enteroccocus, rocephin was switched to vanocmycin. Patient had a repeat paracentesis with another 5 L removed 02/22. Aldactone and lasix gradually increased. Midodrine also started due to persistent hypotension. Time Spent with Patient Time attestation: Total time spent providing and/or coordinating transfer services: Greater than 30 minutes Exam Narrative: General: Chronically ill-appearing male sitting up in bed. HEENT: Bitemporal wasting. PERRL, EOMI. Sclerae anicteric. Neck: Supple. No JVD. Respiratory: Respirations are nonlabored. Lung sounds are slightly diminished at the bases. Cardiovascular: Regular rate and rhythm with S1-S2. Gastrointestinal: Worsening distention- ascites. No significant tenderness to palpation throughout the abdomen. No guarding or rebound tenderness. Skin: Warm and dry. Extremities: No cyanosis or clubbing. 1+ pitting edema. Neurological: Alert. Cranial nerves 2-12 are grossly intact. Psychiatric: Pleasant and cooperative. Flat mood and affect.
== END 2022-02-28 00:05 | disposition short-term general hospital (02) | DRG 432 ==
LOC: ANHED 13:36 → ANH3MEDSUR 17:00
PROVIDERS: Internal Medicine; Internal Medicine Gastroenterology; Physician Assistant; Student in an Organized Health Care Education/Training Program; Admitting Provider Internal Medicine; Emergency Provider Emergency Medicine; PCP Emergency Medicine; Visit Provider Internal Medicine
DX: K70.31 Alcoholic cirrhosis of liver with ascites (principal); K65.2 Spontaneous bacterial peritonitis; I50.31 Acute diastolic (congestive) heart failure; E87.1 Hypo-osmolality and hyponatremia; B95.2 Enterococcus as the cause of diseases classified elsewhere; D64.9 Anemia, unspecified; E87.6 Hypokalemia; E11.9 Type 2 diabetes mellitus without complications; Z20.822 Contact with and (suspected) exposure to COVID-19; K44.9 Diaphragmatic hernia without obstruction or gangrene; C61 Malignant neoplasm of prostate; Z79.84 Long term (current) use of oral hypoglycemic drugs; Z79.82 Long term (current) use of aspirin; Z86.711 Personal history of pulmonary embolism; Z87.891 Personal history of nicotine dependence; Z86.718 Personal history of other venous thrombosis and embolism
CPT/HCPCS: 36415; 49083; 51702; 71045; 80048; 80053; 80202; 81001; 82948; 83036; 83735; 83880; 84484; 85014; 85018; 85025; 85027; 85610; 85730; 87070; 87075; 87077; 87186; 87205; 89051; 93005; 93970; 96365; 96366; 96367; 96375; 96376; 99285; A9270; C9803; G0378; J0456; J0696; J1815; J1940; J3370; J3480; J7040; P9047; U0003; U0005